=== PATIENT | male | born 1970 | race Caucasian/White ===

== ENCOUNTER 2022-04-19 17:04 | Emergency (ER) | payer OTHER, SELFPAY ==
--- NOTE | ~2022-04-19 | XR_ITS ---
EXAMINATION: XR chest 2V Exam Date/Time: 04/19/2022 17:30 CDT HISTORY: cough for 1 week Comparison: None available. RESULT: Lines, tubes, and devices: None. Lungs and pleura: Emphysematous change. Biapical and right lower lung scarring. Left upper lung gran uloma. Cardiomediastinal silhouette: Aortic ectasia, otherwise normal cardiomediastinal silhouette. Other: No acute osseous or upper abdominal finding. IMPRESSION: No acute cardiopulmonary process. Reviewed, dictated and finalized at location K.
[2022-04-19 17:24] VITALS: BP 127/78; PULSE 105; RESP 18; TEMP 36.7; O2SAT 96
--- NOTE | 2022-04-19 17:25 | ED.URI ---
HPI - URI/Sore Throat General Chief Complaint: Upper Respiratory Infection Stated Complaint: cough,sob,chest pain,nasal drainage Time Seen by Provider: 04/19/22 17:25 Source: patient Mode of arrival: ambulatory Limitations: no limitations History of Present Illness HPI Narrative: 51-year-old male presents with complaint of nasal congestion, runny nose, postnasal drainage, cough and chest congestion for 6 days. Taking qkfb-[id number]-mnbnogn medications without relief. Denies shortness of breath and chest pain. States he just cannot get any sleep from the cough and the chest congestion. Did feel feverish but never checked his temp. Is a current every day smoker. All systems reviewed and negative except as noted. Related Data Allergies Allergy/AdvReac Type Severity Reaction Status Date / Time codeine AdvReac Mild light Verified 04/19/22 17:31 headed, dizzy, sweating Review of Systems Review of Systems: CONSTITUTIONAL: Denies fever, chills, or sweats. EYES: Denies visual changes, redness, or discharge. ENT: Reports rhinorrhea, congestion, sore throat. Denies otalgia. CARDIOVASCULAR: Denies chest pain, palpitations, or edema. RESPIRATORY: Reports cough, chest congestion. Denies dyspnea. GASTROINTESTINAL: Denies abdominal pain, nausea, vomiting, or diarrhea. GENITOURINARY: Denies dysuria or hematuria. SKIN: Denies rash or itching. MUSCULOSKELETAL: Denies back pain, joint pain, or myalgia. NEUROLOGIC: Denies headache, numbness, or weakness. PSYCHIATRIC: Denies anxiety or depression. All other systems reviewed are negative, except as documented in HPI. PMFSH Comments At time of signature, agree with nursing past medical, surgical, social and family history. There is no relevant family history pertinent to the presenting complaint. Exam Narrative: GENERAL: This is a well-nourished, well-developed patient, in no apparent distress. HEAD: normocephalic, atraumatic. EYES: PERRL. Sclera clear/white. Vision is grossly intact. EARS: External ears normal, auditory canals clear and without drainage, TMs normal without perforation. Hearing grossly intact. NOSE: External nose normal with clear nasal drainage. THROAT: Mucous membranes moist, posterior pharynx clear. NECK: Neck supple, non-tender without lymphadenopathy, masses or thyromegaly. CARDIOVASCULAR: Regular rate and rhythm without murmurs, gallops, or rubs. RESPIRATORY: Decreased lung sounds throughout all lung buchanan. SKIN: warm, Dry, intact with no suspicious lesions or rash, good texture and turgor. NEURO: awake, alert, and oriented to person, place and time. There were no obvious focal neurologic abnormalities. EXTREMITIES: Normal range of motion to all extremities. BACK: Nontender without deformity. No CVA tenderness. Course Course Level of Care: Express Care Visit Vital Signs Vital signs: Vital Signs Temperature 36.7 C 04/19/22 17:24 Pulse Rate 105 H 04/19/22 17:24 Respiratory Rate 18 04/19/22 17:24 Blood Pressure 127/78 04/19/22 17:24 Pulse Oximetry 96 04/19/22 17:24 Oxygen Delivery Room Air 04/19/22 17:24 Temperature 36.7 C 04/19/22 17:24 Pulse Rate 105 H 04/19/22 17:24 Respiratory Rate 18 04/19/22 17:24 Blood Pressure 127/78 04/19/22 17:24 Pulse Oximetry 96 04/19/22 17:24 Oxygen Delivery Room Air 04/19/22 17:24 Reviewed MDM - URI/Sore Throat MDM Narrative Medical decision making narrative: Patient is aware of diagnosis, understands and agrees to treatment plan. Anticipatory guidance given. Patient agrees to follow-up as directed and is aware of reasons to seek care at the emergency department. Portions of this record may have been created with voice recognition software Imaging Data My impression: Agree with radiologist Radiologist's impression: EXAMINATION:? XR chest 2V Exam Date/Time:? 04/19/2022 17:30 CDT HISTORY: cough for 1 week ? Comparison:? None available. RESULT: Lines, tubes,
== END 2022-04-19 17:59 | disposition home or self-care (01) ==
PROVIDERS: Emergency Provider Nurse Practitioner Family
DX: J01.90 Acute sinusitis, unspecified (principal); J44.9 Chronic obstructive pulmonary disease, unspecified; R05.9 Cough, unspecified
CPT/HCPCS: 71046; 99213; G0463

== ENCOUNTER 2025-01-01 08:36 | Inpatient (IN) | payer OTHER, SELFPAY ==
[2025-01-01] VITALS (17 sets, daily range): BP systolic 123–177; BP diastolic 72–122; PULSE 92–118; RESP 18–37; TEMP 36.4–36.7; O2SAT 92–100; BMI 28.3
--- NOTE | ~2025-01-01 | CT_ITS ---
EXAMINATION: CTA chest PE protocol DATE: 01/01/2025 19:30 CROSSING SUPERVISOR INDICATION: Pulmonary embolus suspected clinically TECHNIQUE: Computed tomographic angiography (CTA) of the chest was performed with 100 mL Omnipaque-35 0 intravenous contrast. The dose-length product was 540.37 mGy-cm. Maximum intensity projection 3D-re constructions of the aorta and other arteries were constructed by the technologist on a separate work station. COMPARISON: None. Reference is made to plain radiograph of the chest, performed 8 hours earlier. FINDINGS: No filling defect is identified within the main or proximal pulmonary arteries. The thoracic aorta is nonaneurysmal and no dissection is present Panlobular emphysematous disease is identified with scarring in the right upper and lower lobes. The stomach is distended with retained gastric contents. Air opacified bowel within the soft tissues of the anterior abdominal wall, incompletely evaluated on the current study. IMPRESSION: No pulmonary embolus. No aortic dissection. Gastric distention and gastric contents. Air opacified bowel within the soft tissues of the anterior abdominal wall, incompletely evaluated on the current study. Reviewed, dictated and finalized at location A. SING SUPERVISOR IMPRESSION: No pulmonary embolus. No aortic dissection. Gastric distention and gastric contents. Air opacified bowel within the soft tissues of the anterior abdominal wall, inc ompletely evaluated on the current study.
--- NOTE | ~2025-01-01 | XR_ITS ---
EXAMINATION: XR chest 1V portable DATE: 01/05/2025 10:37 INDICATION: Tachycardia. TECHNIQUE: A single frontal view of the chest was obtained. COMPARISON: Chest single view 01/01/2025, chest CT 01/01/25 FINDINGS: There are lucencies in the lungs, consistent with emphysema. There is mild peripheral round ed atelectasis in right middle lobe lung zones. A calcified left lung nodule is consistent with old g ranulomatous disease. No pleural effusion or pneumothorax. The heart size is normal. IMPRESSION: 1. Severe emphysema. Reviewed, dictated and finalized at location A. S INSTRUMENT REPAIR TECHNICIAN IMPRESSION: 1. Severe emphysema.
--- NOTE | ~2025-01-01 | XR_ITS ---
EXAMINATION: XR chest 1V portable DATE: 01/01/2025 09:27 INDICATION: Dyspnea. Edema. TECHNIQUE: A single frontal view of the chest was obtained on 2 radiographs. COMPARISON: Chest 2 views 04/19/2022 FINDINGS: The lungs are hyperexpanded, consistent with emphysema. A calcified left lung nodule is con sistent with old granulomatous disease. There is mild scarring in right mid and lower lung zones. No pleural effusion or pneumothorax. The heart size is normal. IMPRESSION: 1. Mild scarring in right mid and lower lung zones. 2. Emphysema. Reviewed, dictated and finalized at location A. DENTIAL SERVICE TECHNICIAN
--- NOTE | 2025-01-01 08:40 | ECG_ITS ---
Test Date: 2025-01-01 08:46:39 Measurements Intervals Brandon Rate: 116 P: 72 SD: 158 QRS: -83 QRSD: 105 T: 71 QT: 315 QTc: 439 Interpretive Statements SINUS TACHYCARDIA WITH OCCASIONAL VENTRICULAR PREMATURE COMPLEXES INCOMPLETE RIGHT BUNDLE BRANCH BLOCK LEFT ANTERIOR FASCICULAR BLOCK BASELINE ARTIFACT- I, II, III, AVR, AVL, AVF, V1-V2, V4-V6 ABNORMAL ECG No previous ECG available for comparison Electronically Signed On 01-01-2025 08:49:16 INSOLE TOE SNIPPING MACHINE OPERATOR by Dwain Pelayo D.O.
--- OUTSIDE RECORDS SUMMARY | 2025-01-01 08:48 | XMS_ITS | Data Portability ---
Author Organization [place] - [facility] [employer], Main Office Address [address] [place] [address] Care Team Providers Care Floor Cashier Name Role Phone JASON STEWARD Primary Care Provider Assessment Encounter Date Assessment Date Assessment LastModified by Organization Details LastModified Time 01/01/2025 01/01/2025 D/w pt about his findings and further plan of care. Advised to call ambulance; but pt declined. Pt wants to drive by himself to [facility]. Risks explained. I called [facility] and d/w ED MD about pt's symptoms and concerns. Ok to send pt to ED. F/u as per ED MD's recommendatio ns. [email or web address] Not available 01/01/2025 09:37:52 Plan of Treatment Reminders Order Date Submit Date Provider Last Modified By Organization Details Last Modified Time Details Appointments Sick/A cute 025 08:15AM Jason Steward MD Not available Not available Not available Lab None record ed. Referral None record ed. Procedures None record ed. Surgeries None record ed. Imaging None record ed. Medication Orders None record ed. Patient TargetsNo targets recorded. Patient InstructionsNo instructions recorded. Reason for Referral None Reported. Problems Name Problem SNOMED Code Status Onset Date Resolution Date Notes Provider Name and Address Organization Details Recorded Time Tobacco user 230197982 Active Not Available [facility] 3 09:18:17 Ankle joint pain 588957774 Active Not Available [facility] 3 09:18:17 Knee pain Active Not Available [facility] 3 09:18:17 Bronchitis 91077836 Active Not Available [facility] 3 09:18:17 Sinusitis 35770972 Active Not Available [facility] 3 09:18:17 Anxiety 20694252 Active Not Available [facility] 3 09:18:17 Cough 81983211 Active Not Available [facility] 3 09:18:18 Upper respiratory infection 06450607 Active Not Available [facility] 3 09:18:18 Dyspnea on exertion 78389923 Active Not Available [facility] 3 09:18:18 Influenza 6101194 Active Not Available [facility] 3 09:18:18 Stress 93990876 Active Not Available [facility] 3 09:18:18 Posterior rhinorrhea 76960621 Active Not Available [facility] 3 09:18:18 Smoker 13621191 Active Not Available [facility] 3 09:18:18 Gout 19078935 Active Not Available [facility] 3 09:18:18 Tachypnea 140119656 Active 2024 Jason Steward MD [address], [place], [address] , [facility] [employer] [facility] 5 09:33:23 Hypoxia 195948356 Active 2024 Jason Steward MD [address], [address], [address] , [facility] [employer] [facility] 5 09:33:37 Acute exacerbation of chronic obstructive pulmonary disease 316390038 Active 2024 Jason Steward MD [address], [place], [address] , [facility] 5 09:33:49 Fatigue 47366007 Active 2024 Jason Steward MD [address], [place], [address] , [facility] [employer] [facility] 5 09:33:57 Cigarette smoker 65217857 Active 2024 Jason Steward MD [address], [place], [address] , [facility] [employer] [facility] 5 09:34:03 Overweight 424723330 Active 2024 Jason Steward MD [address] [facility] [address], [place], [address] , [facility] [employer] [facility] 5 09:36:14 Problem Notes None recorded. Medical Equipment None Reported. Allergies No known drug allergies Medications Name Sig Start Date Stop Date Status Note LastModified by Organization Details LastModified Time amoxicillin 500 mg capsule TK 1 C PO QID FOR 7 DAYS active Not Available Not Available No t Available nicotine 14 mg/24 hr daily transdermal patch Apply 1 patch every day by transderm al route as directed for 30 days. active Not Available Not Available No t Available ipratropium 0.5 mg-albutero l 3 mg (2.5 mg base)/3 mL nebulizatio n soln 03/[address] [facility]#: [id number] [phone]- [id number] Not Available Not Available Not Available azithromyci n 250 mg tablet TK 2 TS PO AT ONCE TODAY THEN TK 1 T PO ONCE D FOR 4 DAYS 02/25 completed Not Available Not Available Not Available benzonatate 200 mg capsule TAKE 1 CAPSULE BY MOUTH THREE TIMES DAILY NEEDED FOR COUGH 01/01 completed Not Available Not Available Not Available Celestone Soluspan 6 mg/mL suspension for injection active [facility]#: [id number] 9566- 05 Not Available Not Available Not Available Medrol (Neftali) 4 mg tablets in a dose pack Take as directed on pack. Direction s for Medrol Dosepak: 1st day: 2 tablets before breakfast , 1 tablet after lunch and after supper, and 2 tablets at bedtime. 2nd day: 1 tablet before breakfast . 1 tablet after lunch and after supper, and 2 tablets at bedtime. 3rd day: 1 tablet before breakfast , after lunch, after supper and at bedtime. 4th day: 1 tablet before breakfast , after lunch and at bedtime. 5th day: 1 tablet before breakfast and at bedtime. 6th day: 1 tablet before breakfast 01/01 completed Not Available Not Available Not Available prednisone 20 mg tablet TAKE 2 TABLETS BY MOUTH DAILY FOR 5 DAYS 01/01 completed Not Available Not Available Not Available amoxicillin 875 mg tablet TAKE 1 TABLET BY MOUTH EVERY 12 HOURS FOR 10 DAYS 01/01 completed Not Available Not Available Not Available Xanax 0.25 mg tablet Take 1 tablet 3 times a day by oral route as directed for 30 days. 05/19 completed Not Available Not Available Not Available oseltamivir 75 mg capsule Take 1 capsule every day by oral route as directed for 10 days. 12/28 completed Not Available Not Available Not Available ceftriaxone 500 mg solution for injection active [facility]#: [id number] 9858- 01 Not Available Not Available Not Available ibuprofen 600 mg tablet Take 1 tablet 3 times a day by oral route for 30 days. 01/01 completed Not Available Not Available Not Available levofloxaci n 750 mg tablet TK 1 T PO D 03/03 completed Not Available Not Available Not Available albuterol sulfate HFA 90 mcg/actuati on aerosol inhaler INHALE 2 PUFFS BY MOUTH EVERY 4 TO 6 HOURS FOR 10 DAYS NEEDED active Not Available Not Available No t Available fluticasone propionate 50 mcg/actuati on nasal spray,suspe nsion Inhale 2 sprays every day by intranasa l route in the morning for 30 days. active Not Available Not Available No t Available loratadine 10 mg tablet TAKE 1 TABLET BY MOUTH EVERY DAY 01/01 completed Not Available Not Available Not Available amoxicillin 875 mg-potassiu m clavulanate 125 mg tablet TAKE 1 TABLET BY MOUTH EVERY 12 HOURS WITH MEALS FOR 10 DAYS 01/01 completed Not Available Not Available Not Available escitalopra m 10 mg tablet TK 1 T PO D HS FOR 30 DAYS. active Not Available Not Available No t Available Mucinex DM 30 mg-600 mg tablet,exte nded release 12 hr Take 1 tablet every 12 hours by oral route as directed for 15 days. active Not Available Not Available No t Available varenicline tartrate 0.5 mg tablet Take 1 tablet twice a day by oral route as directed for 30 days. 01/01 completed Not Available Not Available Not Available Chantix Continuing Month Box 1 mg tablet Take 1 tablet twice a day by oral route. 01/01 completed Not Available Not Available Not Available Chantix Starting Month Box 0.5 mg (11)-1 mg (42) tablets in dose pack Take by oral route. 0.5 mg PO qd x3 days, then 0.5 mg PO bid x4 days; Info: give w/ food; start drug 1wk before quit date if quit date planned 01/01 completed Not Available Not Available Not Available Vicodin ES 7.5 mg-300 mg tablet TK 1 T PO Q 4 H PRN P. active Not Available Not Available No t Available Compact Space Chamber USE WITH INHALER DIRECTED 01/01 completed Not Available Not Available Not Available Vitals Date Recorded Body mass index (BMI) Body height Oxygen saturation Oxygen saturation in Arterial blood by Pulse oximetry Heart rate Body temperature Body weight Systolic blood pressure Diastolic blood pressure Provider Name and Address Organization Details Last Updated DateTime 3 27.5 kg/m2 190.5 cm 95 % 95 % 95 /min 98.1 [degF] 96639.3 2 g 128 mm[Hg] 84 mm[Hg] Not Available [facility] 3 09:13:38 Date Recorded Body height Body mass index (BMI) Body weight Body temperature Oxygen saturation Oxygen saturation in Arterial blood by Pulse oximetry Heart rate Systolic blood pressure Diastolic blood pressure Provider Name and Address Organization Details Last Updated DateTime 5 190.5 cm 28.3 kg/m2 529963. 98 g 97.4 [degF] 85 % 85 % 116 /min 150 mm[Hg] 110 mm[Hg] Priti Perez RN [place] [employer] 5 09:13:08 Social History Question Answer Notes LastModified by Organizat ion Details LastModified Time Tobacco Smoking Status Current Every Day Smoker Not Available [facility] 01/26/2023 09:12:54 Do You Have An Advance Directive? No [id number] Information not available 01/26/2023 What Is Your Level Of Alcohol Consumption? Occasional [id number] Information not available 01/26/2023 In The 14 Days Before Symptom Onset, Have You Had Close Contact With A Laboratory-confir med COVID-19 While That Case Was Ill? No [id number] Information not available 01/26/2023 In The 14 Days Before Symptom Onset, Have You Had Close Contact With A Person Who Is Under Investigation For COVID-19 While That Person Was Ill? No [id number] Information not available 01/26/2023 What Type Of Diet Are You Following? REGULAR [id number] Information not available 01/26/2023 What Is The Highest Grade Or Level Of School You Have Completed Or The Highest Degree You Have Received? 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 No [id number] Information not available 01/26/2023 What Is Your Relationship Status? Single [id number] Information not available 01/26/2023 How Much Tobacco Do You Smoke? 0.5 PPD [id number] Information not available 01/26/2023 Have You Recently Traveled Abroad? No [id number] Information not available 01/26/2023 Are You Currently In School? No [id number] Information not available 01/26/2023 Sex: Unknown Functional Status Question Answer Note LastModified by Organizat ion Details LastModified Time What is your exercise level? Moderate [id number] Information not available 01/26/2023 Mental Status None recorded. Family History Relationship Description Onset Age of this Age Resolved Age Notes LastModified by Organization Details LastModified Time Father No current problems or disability [id number] Not available 01/26/2023 09:13:20 Mother No current problems or disability [id number] Not available 01/26/2023 09:13:20 Medical History No medical history recorded. Past Encounters Encounter ID Performer Location Encounter Start Date Encounter Closed Date Diagnosis/Indication Diagnosis SNOMED-CT Code Diagnosis ICD10 Code Diagnosis Note [id number] [address] [address] 11/11/2022 00:00:00 11/11/2022 16:45:58 [id number] Jason Steward MD [address] [address] 01/01/2025 09:01:18 01/01/2025 09:17:09 Dyspnea on exertion 60191322 R06.09 Tachypnea 240245243 R06. 82 Hypoxia 273622276 R09.02 Acute exac erbation of chronic obstructive pulmonary disease 901874191 J44.1 Fatigue 08807844 R53.83 Cigarette smoker 5643934 7 F17.210 Overweight 241571978 E66 .3 Health Concerns Section Related Observation LastModified by Organization Detai ls LastModified Time None Recorded Concern Status LastModified by Organization Details LastModified Time None Recorded Advance Directives Directive N: Payers Encounter Date Sequence Insurance Name Policy Number Policy Nunes Covered Member ID Nunes Member ID Guarantor Name 01/01/2025 1 [facility] [id number] Omar Hines [id number] Omar Hines Notes Date Note Type Note Provider Name and Address Organization Details Recorded Time 01/01/2025 text/html ACV: C/o cough, congestion, SOB, fatigue for last 7-8 days. Pt denies any known sick contacts. Since yesterday night, his SOB is getting more worse. He walks few steps and gets winded. Denies any chest pain, but lot of burning sensation in his chest ++. Smoking ++. Last visit in 11/18. Jason Steward MD [address] [place] [address], [place], [address], [facility] 01/01/2025 09:38:00
--- OUTSIDE RECORDS SUMMARY | 2025-01-01 08:48 | XMS_ITS | Continuity of Care Document ---
Author Organization [place] [facility] Address [address] [place] [address] Care Team Providers Care Fitting Room Inspector Name Role Phone JASON STEWARD Primary Care Provider [phone] Assessment Encounter Date Assessment Date Assessment LastModified by Organization Details LastModified Time 01/01/2025 01/01/2025 D/w pt about his findings and further plan of care. Advised to call ambulance; but pt declined. Pt wants to drive by himself to [facility] ED. Risks explained. I called [place]'s ED and d/w ED MD about pt's symptoms and concerns. Ok to send pt to ED. F/u as per ED MD's recommendatio ns. [email or web address] Not available 01/01/2025 09:37:52 Plan of Treatment [...] Address Organization Details Recorded Time Tobacco user [id number] Active Not Available [facility] 3 09:18:17 Ankle joint pain 990725142 Active Not Available [facility] 3 09:18:17 Knee pain Active Not Available [facility] 3 09:18:17 Bronchitis 47314867 Active Not Available [facility] 3 09:18:17 Sinusitis 95831759 Active Not Available [facility] 3 09:18:17 Anxiety 00033322 Active Not Available [facility] 3 09:18:17 Cough 53520539 Active Not Available [facility] 3 09:18:18 Upper respiratory infection 98537688 Active Not Available [facility] 3 09:18:18 Dyspnea on exertion 88496527 Active Not Available [facility] 3 09:18:18 Influenza 9123681 Active Not Available [facility] 3 09:18:18 Stress 75843174 Active Not Available [facility] 3 09:18:18 Posterior rhinorrhea 14294253 Active Not Available [facility] 3 09:18:18 Smoker 21292343 Active Not Available [facility] 3 09:18:18 Gout 09237328 Active Not Available [facility] 3 09:18:18 Tachypnea 250115774 Active 2024 Jason Steward MD [address], [place], [address] , [facility] 5 09:33:23 Hypoxia 632053915 Active 2024 Jason Steward MD [address], [place], [address] , [facility] 5 09:33:37 Acute exacerbation of chronic obstructive pulmonary disease 553501221 Active 2024 Jason Steward MD [address], [place], [address] , [facility] 5 09:33:49 Fatigue 88302657 Active 2024 Jason Steward MD [address], [place], [address] , [facility] 5 09:33:57 Cigarette smoker 82841447 Active 2024 Jason Steward MD [address] [facility] [address], [place], [address] , [facility] 5 09:34:03 Overweight 992364051 Active 2024 Jason Steward MD [address], [place], [address] , [facility] 5 09:36:14 Problem Notes None recorded. Medical [...] base)/3 mL nebulizatio n soln 03/03 completed [facility]#: [id number] Not Available Not Available [...] Soluspan 6 mg/mL suspension for injection active [facility]#: [id number] 05 Not Available Not Available [...] ceftriaxone 500 mg solution for injection active [facility]#: [id number]- 01 Not Available Not Available [...] Available Not Available Vitals Date Recorded Body height Body mass index (BMI) Body weight Body temperature Oxygen saturation Oxygen saturation in Arterial blood by Pulse oximetry Heart rate Systolic blood pressure Diastolic blood pressure Provider Name and Address Organization Details Last Updated DateTime 5 190.5 cm 28.3 kg/m2 881546. 98 g 97.4 [degF] 85 % 85 % 116 /min 150 mm[Hg] 110 mm[Hg] Priti Perez RN [place] - [facility] 5 09:13:08 Social History Question Answer Notes LastModified by Organizat ion Details LastModified Time Tobacco Smoking Status Current Every Day Smoker Not Available [facility] 01/26/2023 09:12:54 Do You Have An Advance Directive? No [id number] Information not available 01/26/2023 What Is Your Level Of Alcohol Consumption? Occasional [id number] Information not available 01/26/2023 In The 14 Days Before Symptom Onset, Have You Had Close Contact With A Laboratory-confir med COVID-19 While That Case Was Ill? No [id number] Information not available 01/26/2023 In The 14 Days Before Symptom Onset, Have You Had Close Contact With A Person Who Is Under Investigation For COVID-19 While That Person Was Ill? No [id number] Information not available 01/26/2023 What Type Of Diet Are You Following? REGULAR [id number] Information not available 01/26/2023 What Is The Highest Grade Or Level Of School You Have Completed Or The Highest Degree You Have Received? 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 No [id number] Information not available 01/26/2023 What Is Your Relationship Status? Single [id number] Information not available 01/26/2023 How Much Tobacco Do You Smoke? 0.5 PPD [id number] Information not available 01/26/2023 Have You Recently Traveled Abroad? No [id number] Information not available 01/26/2023 Are You Currently In School? No [id number] Information not available 01/26/2023 Sex: Unknown Functional Status Question Answer Note LastModified by Organizat ion Details LastModified Time What is your exercise level? Moderate [id number] Information not available 01/26/2023 Mental Status None recorded. Family History Relationship Description Onset Age of this Age Resolved Age Notes LastModified by Organization Details LastModified Time Father No current problems or disability [id number] Not available 01/26/2023 09:13:20 Mother No current problems or disability [id number] Not available 01/26/2023 09:13:20 Medical History No medical history recorded. Past Encounters Encounter ID Performer Location Encounter Start Date Encounter Closed Date Diagnosis/Indication Diagnosis SNOMED-CT Code Diagnosis ICD10 Code Diagnosis Note [id number] Jason Steward MD [facility] [address] [address] 01/01/2025 09:01:18 01/01/2025 09:17:09 Dyspnea on exertion 72558701 R06.09 Tachypnea 717955175 R06. 82 Hypoxia 385198133 R09.02 Acute exac erbation of chronic obstructive pulmonary disease 425925819 J44.1 Fatigue 62777700 R53.83 Cigarette smoker 5352500 7 F17.210 Overweight 517721567 E66 .3 Health Concerns Section Related Observation LastModified by Organization Detai ls LastModified Time None Recorded Concern Status LastModified by Organization Details LastModified Time None Recorded Payers Encounter Date Sequence Insurance Name Policy Number Policy Nunes Covered Member ID Nunes Member ID Guarantor Name 01/01/2025 1 [facility] [id number] Omar Hines [id number] Omar Hines Notes Date Note Type Note [...] Last visit in 11/18. Jason Steward MD [address] [place] [address], [place], [address], [facility] [place] 01/01/2025 09:38:00
[2025-01-01 08:53] LABS: Alveolar/Arterial O2 Gradient 72.5 mmHg; Base Excess ABG 0.5 mEq/l (+/-2.0); Fractional Inspired Oxygen 28 %; HCO3 ABG 27.7 mEq/l (22.0-26.0); Oxygen Content ABG 18.9 %vol (16.0-22.0); Oxygen Saturation ABG 90.3 % (95.0-100.0); PCO2 ABG 54.2 mmHg (35.0-45.0); PO2 ABG 63.2 mmHg (80.0-100.0); PO2 FiO2 Ratio Arterial Blood 2.26 %; Total Hemoglobin 15.6 g/dL (12.0-18.0); pH ABG 7.326 (7.350-7.450)
[2025-01-01] MEDS: IPRATROPIUM 0.5 MG/ALBUTEROL SULFATE 2.5 MG AMPUL.NEB 3 ML INHALATION ×2 (08:55→13:03)
[2025-01-01 08:56] LABS: Device NASAL CANNULA; Modified Allen's Test Pass; Oxyhemoglobin 86.1 % THb (90.0-100.0); Site Drawn RIGHT RADIAL
[2025-01-01 08:59] LABS: Basophils Percent Auto 0.4 % (0.2-1.2); Eosinophils Percent Auto 0.4 % (0-4.4); Hematocrit 48.1 % (42.0-52.0); Hemoglobin 15.4 g/dL (14.0-18.0); Immature Granulocyte Absolute 0.02 K/mm3 (0.00-0.031); Immature Granulocyte Percent A 0.2 % (0-0.5); Lymphocytes Absolute Auto 0.86 K/mm3 (0.9-3.2); Lymphocytes Percent Auto 8.9 % (18.3-44.2); Mean Corpuscular Hemoglobin 29.3 pg (26-34); Mean Corpuscular Volume 91.6 fl (80-100); Mean Platelet Volume 9.7 fl (7.4-10.4); Monocytes Absolute Auto 1.2 K/mm3 (0.1-0.6); Monocytes Percent Auto 12.6 % (2.6-8.5); Neutrophils Absolute Auto 7.5 K/mm3 (1.3-6.7); Neutrophils Percent Auto 77.5 % (45.5-73.1); Platelet Count Result 269 k/mm3 (150-375); Red Blood Count 5.25 M/mm3 (4.6-6.20); Red Cell Distribution Width 14.5 % (11.5-14.5); White Blood Count 9.6 K/mm3 (4.5-10.0)
[2025-01-01] MEDS: IPRATROPIUM 0.5 MG/ALBUTEROL SULFATE 2.5 MG AMPUL.NEB 3 ML (09:03)
[2025-01-01 09:21] LABS: Prothrombin Time 13.7 Seconds (11.1-14.7)
[2025-01-01 09:30] LABS: Alanine Aminotransferase 32 U/L (6-50); Albumin Level 4.1 g/dL (3.5-5.1); Alkaline Phosphatase 82 U/L (38-126); Anion Gap 8 mmol/L (4-12); Aspartate Amino Transferase 29 U/L (17-59); Bilirubin,Total 0.6 mg/dL (0.2-1.3); Blood Urea Nitrogen 12 mg/dL (9-20); Calcium 9.5 mg/dL (8.4-10.2); Carbon Dioxide 33 mmol/L (22-30); Chloride 91 mmol/L (98-107); Estimated CRCL calculation 139 ml/min; Estimated Glomerular Filt Rate > 60; Glucose 131 mg/dL (65-110); Magnesium 1.8 mg/dL (1.6-2.3); Potassium 5.1 mmol/L (3.4-5.0); Sodium 132 mmol/L (137-145)
[2025-01-01 09:34] LABS: Influenza A QL RT-PCR Negative (Negative); Influenza B QL RT-PCR Negative (Negative); RSV RNA, RT-PCR Negative (Negative); SARS-CoV-2 RNA PCR Negative (Negative)
[2025-01-01 09:39] LABS: NT Pro B Type Natriuretic Pept 3550 pg/mL (19.9-100); Troponin I 0.023 ng/mL (0.000-0.034)
--- NOTE | 2025-01-01 10:49 | ED_ITS ---
HPI - SOB/Dyspnea General Chief Complaint: Shortness of Breath/Dyspnea Stated Complaint: shortness of breath Time Seen by Provider: 01/01/25 08:41 Source: patient Mode of arrival: ambulatory Limitations: no limitations History of Present Illness HPI Narrative: 54-year-old with a history of COPD presents to the ER with the complaints of cough congestion, shortness of breath. Patient was seen earlier at his doctor's office was found to have SpO2 of 88%. Patient states cough is nonproductive. He denies any fever or chills or chest pain MD elicited complaint: shortness of breath and cough Pertinent past history: COPD Onset (ago): day(s) (2) Timing: constant Severity: moderate Exacerbating factors: nothing Relieving factors: oxygen and bronchodilators Known history of: COPD Associated symptoms: denies other symptoms Related Data Allergies Allergy/AdvReac Type Severity Reaction Status Date / Time codeine AdvReac Mild light Verified 01/01/25 08:52 headed, dizzy, sweating Review of Systems 2 Review of Systems: All systems reviewed & are unremarkable except as noted in HPI and below Constitutional: Constitutional: Reports no additional constitutional complaints Eyes: Eyes: Reports no additional eye complaints ENT: Reports system reviewed and no additional complaints, except as documented Cardiovascular: Cardiovascular: Reports no additional cardiovascular complaints Respiratory: Respiratory: Reports as per HPI Gastrointestinal: Gastrointestinal: Reports no additional gastrointestinal complaints Musculoskeletal: Musculoskeletal: Reports no additional musculoskeletal complaints Exam 2 Narrative: GENERAL: Well-appearing, well-nourished, and in no acute distress. HEAD: Normocephalic, atraumatic. EYES: PERRLA and EOMI. ENT: Nares clear, no rhinorrhea or epistaxis. Mucous membranes moist. NECK: Supple. CHEST: poor air entry , no obvious wheeze, No respiratory distress. HEART: Regular rate and rhythm. No murmur heard. Normal peripheral pulses. ABDOMEN: Soft, nontender, nondistended, normal active bowel sounds. EXTREMITIES: Normal range of motion. No edema. SKIN: Warm, dry, no rash. NEURO: No focal deficits. Alert and oriented x3. PSYCH: Normal mood and affect. Course Course Emergency Course: Patient feeling better after the neb treatment informed him about his lab work, chest x-ray findings agreeable with admission. Discussed with Dr. Cordova accepted the patient Vital Signs Vital signs: Vital Signs Temperature 36.4 C 01/01/25 08:53 Pulse Rate 117 H 01/01/25 08:53 Respiratory Rate 26 H 01/01/25 08:53 Blood Pressure 151/113 H 01/01/25 08:53 Pulse Oximetry 100 01/01/25 08:53 Oxygen Delivery Nasal Cannula 01/01/25 08:53 Oxygen Flow Rate 2 01/01/25 08:53 Temperature 36.4 C 01/01/25 08:53 Pulse Rate 115 H 01/01/25 10:13 Respiratory Rate 20 01/01/25 10:13 Blood Pressure 158/122 H 01/01/25 10:13 Pulse Oximetry 99 01/01/25 10:13 Oxygen Delivery Nasal Cannula 01/01/25 09:11 Oxygen Flow Rate 3 01/01/25 09:11 MDM - SOB/Dyspnea Differential Diagnosis Differential diagnosis: Likely acute exacerbation of chronic obstructive airways disease, congestive heart failure and community acquired pneumonia Medical Records Attestation: I reviewed the patient's medical records. Lab Data Attestation: I reviewed the patient's lab results. 01/01/25 08:49 01/01/25 08:49 Labs: Lab Results 01/01/25 01/01/25 Range/Units 08:49 08:52 WBC 9.6 (4.5-10.0) K/mm3 RBC 5.25 (4.6-6.20) M/mm3 Hgb 15.4 (14.0-18.0) g/dL Hct 48.1 (42.0-52.0) % MCV 91.6 (80-100) fl MCH 29.3 (26-34) pg MCHC 32.0 (32-36) g/dl RDW 14.5 (11.5-14.5) % Plt Count 269 (150-375) k/mm3 MPV 9.7 (7.4-10.4) fl Immature Gran % (Auto) 0.2 (0-0.5) % Neut % (Auto) 77.5 H (45.5-73.1) % Lymph % (Auto) 8.9 L (18.3-44.2) % [place] % (Auto) 12.6 H (2.6-8.5) % Eos % (Auto) 0.4 (0-4.4) % Baso % (Auto) 0.4 (0.2-1.2) % Lymph # (Auto) 0.86 L (0.9-3.2) K/mm3 [place] # (Auto) 1.2 H (0.1-0.6) K/mm3 Eos # (Auto) 0.0 (0-0.3) K/mm3 Baso # (Auto) 0.0 (0.0-0.1) K/mm3 Abs Immat Gran (auto) 0.02 (0.00-0.031) K/mm3 Absolute Neuts (auto) 7.5 H (1.3-6.7) K/mm3 Absolute Nucleated RBC 0.000 (0.0-0.012) K/mm3 Nucleated RBC % 0.0 (0.0-0.2) % PT 13.7 (11.1-14.7) Seconds INR 1.0 APTT 26.0 (22.3-36.8) Seconds Sodium 132 L (137-145) mmol/L Potassium 5.1 H (3.4-5.0) mmol/L Chloride 91 L (98-107) mmol/L Carbon Dioxide 33 H (22-30) mmol/L Anion Gap 8 (4-12) mmol/L BUN 12 (9-20) mg/dL Creatinine 0.61 L (0.7-1.3) mg/dL Estim Creat Clear Calc 139 ml/min Estimated GFR > 60 (59 - ) Glucose 131 H (65-110) mg/dL Lactic Acid 2.0 (0.7-2.0) mmol/L Calcium 9.5 (8.4-10.2) mg/dL Magnesium 1.8 (1.6-2.3) mg/dL Total Bilirubin 0.6 (0.2-1.3) mg/dL AST 29 (17-59) U/L ALT 32 (6-50) U/L Alkaline Phosphatase 82 (38-126) U/L Troponin I 0.023 (0.000-0.034) ng/mL NT-Pro-B Natriuret Pep 3550 H (19.9-100) pg/mL Total Protein 7.0 (6.3-8.2) g/dL Albumin 4.1 (3.5-5.1) g/dL Influenza A (RT-PCR) Negative (Negative) Influenza B (RT-PCR) Negative (Negative) RSV (RT-PCR) Negative (Negative) SARS-CoV-2 RNA (RT-PCR) Negative (Negative) ABG Data ABG results: 01/01/25 08:40 Puncture Site Right radial ABG pH 7.326 L ABG pCO2 54.2 H ABG pO2 63.2 L ABG PO2/FiO2 Ratio 2.26 ABG HCO3 27.7 H ABG O2 Saturation 90.3 L ABG O2 Content 18.9 ABG Base Excess 0.5 A-a Gradient 72.5 Oxyhemoglobin 86.1 L* Total Hemoglobin 15.6 O2 Delivery Device Nasal cannula O2 Liters/Min 2.0 FiO2 28 Imaging Data Radiologist's impression: ITS Impressions Chest X-Ray 01/01/25 09:36 IMPRESSION: 1. Mild scarring in right mid and lower lung zones. 2. Emphysema. ECG Data EKG #1: ECG completion date: 01/01/25 ECG completion time: 08:46 EKG Interpretation: tachycardia (116), sinus rhythm, no ST changes, normal QT and other (Incomplete right bundle, left anterior fascicular block) Discharge Plan Discharge Clinical Impression: Asthma exacerbation in COPD Congestive heart failure Qualifiers: Heart failure type: unspecified Heart failure chronicity: unspecified Qualified Code(s): I50.9 - Heart failure, unspecified Patient Disposition: Still a Patient Condition: Stable Patient Language: Bhutanese Prescriptions: No Action (DME) Aerochamber Plus Z Stat Spacer See Rx Instructions .Route Qty: 1 0RF Rx Instructions: As directed albuterol sulfate 90 mcg/actuation HFA aerosol inhaler 2 puff inhalation QID PRN (Reason: shortness of breath or wheezing) Qty: 8.5 0RF Mucinex 1,200 mg tablet extended release 12hr 1,200 mg PO BID 7 Days Qty: 14 0RF benzonatate 200 mg capsule 200 mg PO TID PRN (Reason: cough) Qty: 20 0RF prednisone 20 mg tablet 40 mg PO DAILY 5 Days Qty: 10 0RF loratadine [Claritin] 10 mg tablet 10 mg PO DAILY Qty: 30 0RF amoxicillin 875 mg tablet 875 mg PO Q12H 10 Days Qty: 20 0RF Follow-up/Referrals: Bin,MD Jason [Primary Care Provider] - Time of Disposition: 10:57
[2025-01-01] MEDS: FUROSEMIDE INJ 40 MG/4 ML VIAL IV PUSH ×2 (11:26→18:23)
[2025-01-01] MEDS: methylPREDNISolone SOD SUCC 125 MG VIAL IV PUSH (11:26)
--- NOTE | 2025-01-01 11:40 | ADMGEN ---
This patient, Omar Hines Jr., was admitted to Medical Room 261-01. Patient/family oriented to hospital policies and general routines including ID bracelet, bed and alarms, visiting hours, pain management, procedures, bathroom and other care routines, personal items, smoking policy, room service/diet, and visiting hours. Information on how to activate the Rapid Response Team has been discussed. Patient/Family are encouraged to report perceived risks to care and to ask questions if they do not understand what they are told or what they should do.
[2025-01-01] MEDS: methylPREDNISolone SOD SUCC 125 MG VIAL 60 MG IV PUSH (17:23)
--- NOTE | 2025-01-01 18:02 | PM.IMHP ---
H&P: HPI History of Present Illness Date/Time: 01/01/25 18:02 Chief Complaint: SOb and cough Narrative: 54-year-old male no significant past medical history presented to the ER on account of shortness of breath and a cough. Patient reported he has been having sore throat the past 10 days associated with cough however his symptoms improved and then worsened in the past 4 days with shortness of with a cough productive of yellowish sputum. He also noted leg swelling the past 3 days. Denies any chest no fever no vomiting abdominal pain no diarrhea no dysuria no focal symptoms. No lightheadedness or loss of consciousness. Er evaluation notable for temperature 97.6?, heart rate 1 1 7, respiratory 26, saturation 100% on 2 L oxygen, blood pressure 151/113. CXR no acute changes, abg 7.326/54.2/63.2/27.7, Flu, RSV and COvid negative. EKG showed ST, no acute St-T changes Patient given I V steroid prior to admission prior to admission Review of Systems Review of Systems: All other systems were reviewed and negative except as noted in the HPI above [facility] Family History Family History (Updated 01/01/25 @ 12:24 by Claudia Michelle RN) Mother Cervical cancer Father Heart failure Social History Social History Smoking packs per day: 1 Smoking cigarettes per day: 20.0 Years smoked: 30 Smoking pack-years: 30.00 Smoking status: Former smoker Tobacco type: cigarettes Alcohol intake: former Substance use type: does not use Do You Feel Safe in your Home?: Yes Lack of Transportation: No Lack of Food: Never True Current Housing: I Have Housing Concerned About Future Housing: No Difficulty Paying Gas/Electric Bills: No Difficulty Paying for Meds: No Currently Unemployed: No Education: Associate Degree Difficulty w/ Childcare or Family Care: No Spiritual care concerns: No Meds Home Medications and Allergies Home Medications ?Medication ?Instructions ?Recorded ?Confirmed ?Type guaifenesin 1,200 mg tablet, 1,200 mg PO BID 7 days #14 tabs 04/19/22 01/01/25 Rx extended release 12 hr (Mucinex) loratadine 10 mg tablet (Claritin) 10 mg PO DAILY #30 tabs 04/19/22 01/01/25 Rx Allergies Allergy/AdvReac Type Severity Reaction Status Date / Time codeine AdvReac Mild light Verified 01/01/25 08:52 headed, dizzy, sweating Vital Signs Vital Signs - 24 hr 01/01/25 08:53 01/01/25 08:53 01/01/25 08:55 Temperature 97.6 F Pulse Rate 117 H 118 H Respiratory Rate 26 H 20 Blood Pressure 151/113 H Pulse Oximetry 100 100 Oxygen Delivery Nasal Cannula Nasal Cannula Oxygen Flow Rate 2 2 01/01/25 08:58 01/01/25 08:58 01/01/25 09:00 Temperature Pulse Rate 115 H 118 H Respiratory Rate 21 H Blood Pressure 157/118 H Pulse Oximetry 100 100 Oxygen Delivery Nasal Cannula Oxygen Flow Rate 2 01/01/25 09:05 01/01/25 09:11 01/01/25 10:13 Temperature Pulse Rate 113 H 115 H Respiratory Rate 20 20 Blood Pressure 158/122 H Pulse Oximetry 100 99 Oxygen Delivery Nasal Cannula Oxygen Flow Rate 3 01/01/25 10:15 01/01/25 10:45 01/01/25 11:01 Temperature Pulse Rate 112 H 114 H 114 H Respiratory Rate 37 H 32 H 33 H Blood Pressure 163/113 H 158/108 H 177/98 H Pulse Oximetry 97 Oxygen Delivery Oxygen Flow Rate 01/01/25 13:03 01/01/25 13:03 01/01/25 13:13 Temperature Pulse Rate 92 92 96 Respiratory Rate 20 20 20 Blood Pressure Pulse Oximetry 98 Oxygen Delivery Nasal Cannula Oxygen Flow Rate 3 01/01/25 16:00 Temperature Pulse Rate 109 H Respiratory Rate Blood Pressure Pulse Oximetry Oxygen Delivery Oxygen Flow Rate Exam Narrative: General: alert and comfortable Eyes: EOMI, PERRLA ENNT External ears normal, Neck is supple, no masses, Respiratory systems: Clear to auscultation Cardiovascular S1, S2, normal rhythm, no murmur, rub, or gallop; no thrill or palpable murmurs on palpation. Gastrointestinal: soft, non-tender, and non-distended abdomen with no masses; BS present Skin: no rash, lesions, ulcerations, subcutaneous nodules or induration Musculoskeletal: Lower extremities edema 3 + Neurologic: Alert and oriented x3, non focal Mental Status Exam: normal affect H&P: Results Labs Labs: Short CBC 01/01/25 Range/Units 08:49 WBC 9.6 (4.5-10.0) K/mm3 Hgb 15.4 (14.0-18.0) g/dL Hct 48.1 (42.0-52.0) % Plt Count 269 (150-375) k/mm3 BMP 01/01/25 08:49 Sodium 132 L Potassium 5.1 H Chloride 91 L Carbon Dioxide 33 H BUN 12 Creatinine 0.61 L Glucose 131 H Calcium 9.5 Cardiac Enzymes 01/01/25 01/01/25 Range/Units 08:49 14:25 Troponin I 0.023 0.030 D (0.000-0.034) ng/mL Liver Function 01/01/25 Range/Units 08:49 Total Bilirubin 0.6 (0.2-1.3) mg/dL AST 29 (17-59) U/L ALT 32 (6-50) U/L Alkaline Phosphatase 82 (38-126) U/L Albumin 4.1 (3.5-5.1) g/dL Assessment and Plan Assessment and plan (1) Asthma exacerbation in COPD: Code(s): J44.1 - Chronic obstructive pulmonary disease with (acute) exacerbation Status: Acute (2) Congestive heart failure: Qualifiers: Heart failure chronicity: unspecified Heart failure type: unspecified Qualified Code(s): I50.9 - Heart failure, unspecified Code(s): I50.9 - Heart failure, unspecified Status: Acute Plan Acute hypoxemic hypercapnic respiratory failure Patient presented with SOB, smokes half pack per day Abg showed abg 7.326/54.2/63.2/27.7 CXR unremarkable CTA chest ordered Continue PO prednisone, Duoneb and Symbicort Leg edema and SOB rule out CHF NT-proBNP 3550 ECHO pending continue Lasix monitor Likely undiagnosed COPD with exacerbation patient is a smoker and smokes half PPD Continue DUoneb treatment with PO steroids and Symbicort Counseled about smoking cessation DVT prophylaxis on Sq lovenox Full code Surrogate decision maker Sister Madhuri Kinsey Hospitalist MIPS Advance Care Plan I have confirmed that the patient's Advanced Care Plan is present, code status is documented, or surrogate decision maker is listed in patient medical record.: Yes Medication Reconciliation I have utilized all available resources to obtain, update and review the patients current medications (includes all prescriptions, OTC, herbals, cannabis, and nutritional supplements).: Yes
[2025-01-01] MEDS: predniSONE 20 MG TABLET 40 MG PO (18:28)
[2025-01-01 19:01] LABS: Troponin I 0.023 ng/mL (0.000-0.034)
[2025-01-02] VITALS (23 sets, daily range): BP systolic 98–109; BP diastolic 56–80; PULSE 96–117; RESP 18–20; TEMP 36.3–36.6; O2SAT 86–99
--- NOTE | 2025-01-02 | ECHO_ITS ---
Patient Info Name: Omar Hines Age: 54 years : 1970 Gender: Male Ht: 75 in Wt: 226 lbs BSA: 2.34 m2 HR: 111 bpm BP: 106 / 75 mmHg Heart Rhythm: Tachycardia Technical Quality: Good Exam Date: 01/02/2025 2:12 PM Exam Location: Echo Lab Exam Room: [facility] Patient Status: Inpatient Admit Date: 01/01/2025 Staff Ordering Physician: Rufina Graf MD Press Offbearer: Emily Renee RDCS Attending Provider: Kirit Hwang MD Exam Type: CA echo doppler color flow Study Info Indications - CHF Complete two-dimensional, color flow and Doppler transthoracic echocardiogram is performed. Summary 1. Complete two-dimensional, color flow and Doppler transthoracic echocardiogram is performed. 2. The left ventricle is mildly dilated with LVEDD measured 5.9 cm. The left ventricle has moderately reduced systolic function with a visually estimated LVEF of 30-35%. 3. The right ventricle is mildly dilated with mildly reduced systolic function. 4. The aortic root at the level of the sinus of Valsalva measures 3.7 cm in diameter. The ascending aorta is dilated at 4.[address] scan is recommended if clinically indicated. 5. Dilated inferior vena cava with >50% collapse upon inspiration consistent with elevated right atrial pressure, 8 mmHg. Left Ventricle The left ventricle is mildly dilated with LVEDD measured 5.9 cm. The left ventricle has moderately reduced systolic function with a visually estimated LVEF of 30-35%. Right Ventricle The right ventricle is mildly dilated with mildly reduced systolic function. Left Atria The left atrium is normal size. Right Atria The right atrium is dilated. Atrial Septum The atrial septum visually appears intact. Aortic Valve The aortic valve is trileaflet and sclerotic but opens well. There is no aortic regurgitation. Pulmonic Valve The pulmonic valve is grossly normal. There is no color Doppler evidence of pulmonic valve regurgitation. Mitral Valve The mitral valve is normal. There is trace mitral regurgitation. Tricuspid Valve The tricuspid valve is normal. There is no tricuspid regurgitation. Pericardium/Pleural Pericardium is normal in appearance with no evidence for significant pericardial effusion. Inferior Vena Cava Dilated inferior vena cava with >50% collapse upon inspiration consistent with elevated right atrial pressure, 8 mmHg. Aorta The aortic root at the level of the sinus of Valsalva measures 3.7 cm in diameter. The ascending aorta is dilated at 4.[address] scan is recommended if clinically indicated. Left Ventricular Outflow Tract Name Value Normal LVOT 2D LVOT Diameter 2.4 cm LVOT Doppler LVOT Peak Gradient 5 mmHg LVOT Mean Gradient 3 mmHg LVOT VTI 19 cm LVOT VTI/AV VTI Ratio 0.9 LVOT Stroke Volume 87 ml LVOT CO 9.0 l/min LVOT CI 3.8 l/min/m2 Pulmonic Valve Name Value Normal PV Doppler PV Peak Gradient 2 mmHg Mitral Valve Name Value Normal MV Doppler MV Peak Gradient 3 mmHg MV Mean Gradient 2 mmHg MV Decel Clay 454 cm/s2 MV PHT 49 ms MV Area (PHT) 4.5 cm2 4.0-5.0 MV Area (Cont Eq VTI) 4.0 cm2 MV Regurgitation Doppler MR Peak Gradient 108 mmHg MV Diastolic Function MV E Peak Velocity 76 cm/s MV A Peak Velocity 99 cm/s MV E/A 0.8 MV Decel Time 168 ms MV Annular TDI MV E/e' (Septal) 20.8 <=8.0 MV E/e' (Lateral) 10.3 <=8.0 MV E/e' (Average) 15.5 Tricuspid Valve Name Value Normal TV Regurgitation Doppler TR Peak Velocity 352 cm/s TR Peak Gradient 50 mmHg Estimated PAP/RSVP RA Pressure 8 mmHg <=5 PA Systolic Pressure 58 mmHg <36 RV Systolic Pressure 58 mmHg <36 Aortic Valve Name Value Normal AV Doppler AV Peak Velocity 126 cm/s AV Peak Gradient 6 mmHg AV Mean Gradient 4 mmHg AV VTI 22 cm AV Area (Cont Eq VTI) 3.9 cm2 >=3.0 AV Area (Cont Eq Devin) 4.3 cm2 AV Regurgitation 2D LVOT Area 4.6 cm2 Ventricles Name Value Normal LV Dimensions 2D/MM IVS Diastolic Thickness (2D) 0.8 cm 0.6-1.0 LVID Diastole (2D) 6.3 cm 4.2-5.8 LVID Diastole (MM) 6.3 cm 4.2-5.8 LVIW Diastolic Thickness (2D) 0.8 cm 0.6-1.0 LVID Systole (2D) 5.5 cm 2.5-4.0 LVID Systole (MM) 5.3 cm 2.5-4.0 LVOT Diameter 2.4 cm LV Mass (2D Cubed) 199.63 g 88.00-224.00 LV Mass Index (2D Cubed) 85 g/m2 49-115 Relative Wall Thickness (2D) 0.25 LV Fractional Shortening/Ejection Fraction 2D/MM LV Fractional Shortening (2D) 13 % 25-43 LV Fractional Shortening (MM) 17 % 25-43 LV EF (MM Teicholz) 34 % 52-72 LV EF (2D Teicholz) 28 % 52-72 LV Diastolic Volume (4C MOD) 221 ml LV EF (4C MOD) 41 % LV Diastolic Volume (2C MOD) 304 ml LV EF (2C MOD) 29 % LV Diastolic Volume (BP MOD) 263 ml 62-150 LV Diastolic Volume Index (BP MOD) 112 ml/m2 34-74 LV Systolic Volume (BP MOD) 171 ml 21-61 LV Systolic Volume Index (BP MOD) 73 ml/m2 11-31 LV EF (BP MOD) 35 % 52-72 LV Diastolic Length (4C) 10.4 cm LV Systolic Length (4C) 9.4 cm LV Stroke Volume (4C MOD) 91 ml LV CO (BP MOD) 9.8 l/min LV CI (BP MOD) 4.2 l/min/m2 Atria Name Value Normal LA Dimensions LA Volume (4C A-L) 55 ml LA Volume (BP A-L) 75 ml RA Dimensions RA Area (4C) 25.2 cm2 <=18.0 Report Signatures
[2025-01-02] MEDS: IPRATROPIUM 0.5 MG/ALBUTEROL SULFATE 2.5 MG AMPUL.NEB 3 ML INHALATION ×4 (02:30→21:55)
[2025-01-02 05:30] LABS: Hematocrit 51.6 % (42.0-52.0); Hemoglobin 16.4 g/dL (14.0-18.0); Immature Granulocyte Absolute 0.02 K/mm3 (0.00-0.031); Immature Granulocyte Percent A 0.3 % (0-0.5); Lymphocytes Absolute Auto 0.43 K/mm3 (0.9-3.2); Lymphocytes Percent Auto 6.5 % (18.3-44.2); Mean Corpuscular HGB Conc 31.8 g/dl (32-36); Mean Corpuscular Hemoglobin 29.1 pg (26-34); Mean Corpuscular Volume 91.7 fl (80-100); Mean Platelet Volume 9.7 fl (7.4-10.4); Monocytes Absolute Auto 0.6 K/mm3 (0.1-0.6); Monocytes Percent Auto 8.5 % (2.6-8.5); Neutrophils Absolute Auto 5.6 K/mm3 (1.3-6.7); Neutrophils Percent Auto 84.7 % (45.5-73.1); Platelet Count Result 258 k/mm3 (150-375); Red Blood Count 5.63 M/mm3 (4.6-6.20); Red Cell Distribution Width 14.6 % (11.5-14.5); White Blood Count 6.6 K/mm3 (4.5-10.0)
[2025-01-02 05:40] LABS: Alanine Aminotransferase 36 U/L (6-50); Albumin Level 4.2 g/dL (3.5-5.1); Alkaline Phosphatase 83 U/L (38-126); Anion Gap 6 mmol/L (4-12); Aspartate Amino Transferase 27 U/L (17-59); Bilirubin,Total 0.5 mg/dL (0.2-1.3); Blood Urea Nitrogen 19 mg/dL (9-20); Calcium 9.4 mg/dL (8.4-10.2); Carbon Dioxide 38 mmol/L (22-30); Chloride 91 mmol/L (98-107); Estimated CRCL calculation 104 ml/min; Estimated Glomerular Filt Rate > 60; Glucose 126 mg/dL (65-110); Lactic Acid Reflex 1.4 mmol/L (0.7-2.0); Potassium 5.2 mmol/L (3.4-5.0); Sodium 135 mmol/L (137-145)
[2025-01-02] MEDS: FLUTICASONE/SALMETEROL 45-21 MCG INHALER 1 PUFF 2 PUFF INHALATION ×2 (07:55→21:54)
[2025-01-02] MEDS: predniSONE 20 MG TABLET 40 MG PO (08:43)
[2025-01-02] MEDS: FUROSEMIDE INJ 40 MG/4 ML VIAL 20 MG IV PUSH (08:44)
[2025-01-02] MEDS: ENOXAPARIN 40 MG/0.4 ML SYRINGE SUB-Q (08:44)
--- NOTE | 2025-01-02 10:49 | PM.IMPN ---
Progress Note: A&P Assessment and Plan (1) Asthma exacerbation in COPD: Code(s): J44.1 - Chronic obstructive pulmonary disease with (acute) exacerbation Status: Acute (2) Congestive heart failure: Qualifiers: Heart failure chronicity: unspecified Heart failure type: unspecified Qualified Code(s): I50.9 - Heart failure, unspecified Code(s): I50.9 - Heart failure, unspecified Status: Acute Plan Acute hypoxemic hypercapnic respiratory failure Patient presented with SOB, smokes half pack per day Abg showed abg 7.326/54.2/63.2/27.7 CXR unremarkable CTA chest showed diffuse emphysema Continue PO prednisone, Duoneb and Symbicort Leg edema and SOB rule out CHF NT-proBNP 3550 ECHO pending hold lasix due to possible overdiuresis as noted by tachycardia monitor undiagnosed COPD with exacerbation patient is a smoker and smokes half PPD Continue DUoneb treatment with PO steroids and Symbicort Counseled about smoking cessation DVT prophylaxis on Sq lovenox Full code Surrogate decision maker Sister Madhuri Kinsey Subjective Date/time seen: 01/02/25 10:49 Interval history: Comfortable at bedside CTA chest showed emphysema patient still tachycardiac, Lasix discontinued and given 250 cc bolus NS awaiting ECHO Review of Systems Review of Systems: All other systems were reviewed and negative except as noted in the HPI above Exam Narrative: General: alert and comfortable Eyes: EOMI, PERRLA ENNT External ears normal, Neck is supple, no masses, Respiratory systems: Clear to auscultation Cardiovascular S1, S2, normal rhythm, no murmur, rub, or gallop; no thrill or palpable murmurs on palpation. Gastrointestinal: soft, non-tender, and non-distended abdomen with no masses; BS present Skin: no rash, lesions, ulcerations, subcutaneous nodules or induration Musculoskeletal: Lower extremities edema 3 + Neurologic: Alert and oriented x3, non focal Mental Status Exam: normal affect Objective Data Vital Signs Vital Signs: Vital Signs - 24 hr 01/01/25 11:01 01/01/25 13:03 01/01/25 13:03 Temperature Pulse Rate 114 H 92 92 Respiratory Rate 33 H 20 20 Blood Pressure 177/98 H Pulse Oximetry 98 Oxygen Delivery Nasal Cannula Oxygen Flow Rate 3 01/01/25 13:13 01/01/25 16:00 01/01/25 18:00 Temperature Pulse Rate 96 109 H 112 H Respiratory Rate 20 20 Blood Pressure 131/72 Pulse Oximetry 95 Oxygen Delivery Oxygen Flow Rate 01/01/25 20:00 01/01/25 20:00 01/01/25 20:08 Temperature 98.0 F Pulse Rate 115 H 113 H Respiratory Rate 18 Blood Pressure 123/78 Pulse Oximetry 92 94 Oxygen Delivery Nasal Cannula Oxygen Flow Rate 3 01/01/25 20:30 01/02/25 00:00 01/02/25 02:20 Temperature Pulse Rate 113 H 115 H Respiratory Rate 20 Blood Pressure Pulse Oximetry 95 Oxygen Delivery Nasal Cannula Oxygen Flow Rate 3 01/02/25 04:54 01/02/25 05:00 01/02/25 07:56 Temperature 97.7 F Pulse Rate 109 H 111 H Respiratory Rate 18 Blood Pressure 106/75 Pulse Oximetry 99 91 Oxygen Delivery Nasal Cannula Oxygen Flow Rate 3 01/02/25 07:56 01/02/25 08:05 01/02/25 09:16 Temperature 97.4 F L Pulse Rate 100 104 H 110 H Respiratory Rate 20 20 20 Blood Pressure 102/56 L Pulse Oximetry 93 Oxygen Delivery Oxygen Flow Rate Intake/Output Intake/Output: Intake & Output 12/30/24 12/31/24 01/01/25 01/02/25 23:59 23:59 23:59 23:59 Intake Total 1700 580 Balance 1700 580 Meds/Results Medications: Active Medications Generic Name Dose Route Start Last Admin Trade Name Freq PRN Reason Stop Dose Admin Acetaminophen 650 mg 01/01/25 10:47 Acetaminophen 325 Mg Tablet PO Q4H PRN Mild Pain (1-3) or Fever Albuterol/Ipratropium 3 ml 01/01/25 14:00 01/02/25 07:54 Ipratropium 0.5 Mg/Albuterol Sulfate 2.5 Mg Ampul.Neb 3 Ml INHALATION 3 ml Q6HRT [facility] Administration Albuterol/Ipratropium 3 ml 01/01/25 20:00 01/02/25 07:54 Ipratropium 0.5 Mg/Albuterol Sulfate 2.5 Mg Ampul.Neb 3 Ml INHALATION Not Given Q6HRT [facility] Enoxaparin Sodium 40 mg 01/02/25 09:00 01/02/25 08:44 Enoxaparin 40 Mg/0.4 Ml Syringe SUB-Q 40 mg DAILY SILVINO Administration Ondansetron HCl 4 mg 01/01/25 10:47 Ondansetron Inj 4 Mg/2 Ml Vial IV PUSH Q4H PRN Nausea Perflutren Lipid Microsphere 0 ml 01/01/25 17:51 Perflutren Lipid Microspheres 1.5 Ml Vial Diluted To 10 Ml Total Volume IV PUSH 01/04/25 17:52 ONCE PRN adequate visualization Protocol Prednisone 40 mg 01/01/25 18:00 01/02/25 08:43 Prednisone 20 Mg Tablet PO 40 mg DAILY@0800 SILVINO Administration Fluticasone/Salmeterol 2 puff 01/01/25 20:00 01/02/25 07:55 Fluticasone/Salmeterol 45-21 Mcg Inhaler 1 Puff INHALATION 2 puff Q12HRT SILVINO Administration Radiology Results: ITS Impressions Chest X-Ray 01/01/25 09:36 IMPRESSION: 1. Mild scarring in right mid and lower lung zones. 2. Emphysema. Chest CTA 01/01/25 19:30 IMPRESSION: No pulmonary embolus. No aortic dissection. Gastric distention and gastric contents. Air opacified bowel within the soft tissues of the anterior abdominal wall, incompletely evaluated on the current study. Labs Labs: Laboratory Results - last 24 hr 01/01/25 01/01/25 01/02/25 14:25 18:26 05:25 WBC 6.6 RBC 5.63 Hgb 16.4 Hct 51.6 MCV 91.7 MCH 29.1 MCHC 31.8 L RDW 14.6 H Plt Count 258 MPV 9.7 Immature Gran % (Auto) 0.3 Neut % (Auto) 84.7 H Lymph % (Auto) 6.5 L Terrell % (Auto) 8.5 Eos % (Auto) 0.0 Baso % (Auto) 0.0 L Lymph # (Auto) 0.43 L Terrell # (Auto) 0.6 Eos # (Auto) 0.0 Baso # (Auto) 0.0 Abs Immat Gran (auto) 0.02 Absolute Neuts (auto) 5.6 Absolute Nucleated RBC 0.000 Nucleated RBC % 0.0 Sodium 135 L Potassium 5.2 H Chloride 91 L Carbon Dioxide 38 H Anion Gap 6 BUN 19 Creatinine 0.84 Estim Creat Clear Calc 104 Estimated GFR > 60 Glucose 126 H Lactic Acid 1.4 Calcium 9.4 Magnesium 2.0 Total Bilirubin 0.5 AST 27 ALT 36 Alkaline Phosphatase 83 Troponin I 0.030 D 0.023 D Total Protein 8.0 Albumin 4.2
--- NOTE | 2025-01-02 11:19 | HOMEO2EVAL ---
Evaluation was performed at [facility] Home Oxygen Evaluation RC: Home Oxygen (O2) Evaluation Start: 01/02/25 08:41 Freq: ONCE Status: Active Protocol: RPE Activity Type Activity Date Activity User E-sign Co-sign Detail Recorded Client Recorded Date Recorded By Document 01/02/25 10:45 [email or web address] [email or web address] 01/02/25 11:19 DJO Document 01/02/25 10:50 [email or web address] [email or web address] 01/02/25 11:19 DJO Document 01/02/25 10:55 [email or web address] [email or web address] 01/02/25 11:19 DJO Document 01/02/25 11:00 [email or web address] [email or web address] 01/02/25 11:19 DJO Document 01/02/25 11:15 [email or web address] [email or web address] 01/02/25 11:19 DJO 01/02/25 01/02/25 01/02/25 10:45 10:50 10:55 Home O2 Evaluation [Oxygen] -Test Phase Resting Exercise Exercise -Oxygen Delivery Room Air Room Air Nasal Cannula -Oxygen Flow Rate (L/min) 1 [Pulse Oximetry] -Pulse Oximetry (90-100 %) 95 86 L 88 L [Pulse Rate] -Pulse Rate (60-100 beats/min) 96 112 H 113 H [Evaluation] -Activity Tolerance [Exercise] -Ambulation Distance (feet) -Ambulation Distance (meters) [Charges] -Evaluation Charges O2 Evaluation by Pulmonary 01/02/25 01/02/25 11:00 11:15 Home O2 Evaluation [Oxygen] -Test Phase Exercise Resting -Oxygen Delivery Nasal Cannula Room Air -Oxygen Flow Rate (L/min) 2 [Pulse Oximetry] -Pulse Oximetry (90-100 %) 91 94 [Pulse Rate] -Pulse Rate (60-100 beats/min) 114 H 100 [Evaluation] -Activity Tolerance Good [Exercise] -Ambulation Distance (feet) 750 -Ambulation Distance (meters) 228.58 [Charges] -Evaluation Charges
[2025-01-02] MEDS: SODIUM CHLORIDE 0.9% IV 500 ML 250 ML IV CONT (11:47)
[2025-01-03] VITALS (17 sets, daily range): BP systolic 105–122; BP diastolic 67–76; PULSE 79–107; RESP 16–20; TEMP 36.3–36.6; O2SAT 94–99
[2025-01-03 05:36] LABS: Basophils Percent Auto 0.3 % (0.2-1.2); Eosinophils Absolute Auto 0.1 K/mm3 (0-0.3); Eosinophils Percent Auto 0.8 % (0-4.4); Hematocrit 42.9 % (42.0-52.0); Hemoglobin 13.7 g/dL (14.0-18.0); Immature Granulocyte Absolute 0.02 K/mm3 (0.00-0.031); Immature Granulocyte Percent A 0.2 % (0-0.5); Lymphocytes Absolute Auto 2.01 K/mm3 (0.9-3.2); Mean Corpuscular HGB Conc 31.9 g/dl (32-36); Mean Corpuscular Hemoglobin 29.4 pg (26-34); Mean Corpuscular Volume 92.1 fl (80-100); Mean Platelet Volume 9.8 fl (7.4-10.4); Monocytes Absolute Auto 1.3 K/mm3 (0.1-0.6); Monocytes Percent Auto 11.8 % (2.6-8.5); Neutrophils Absolute Auto 7.7 K/mm3 (1.3-6.7); Neutrophils Percent Auto 68.9 % (45.5-73.1); Platelet Count Result 210 k/mm3 (150-375); Red Blood Count 4.66 M/mm3 (4.6-6.20); Red Cell Distribution Width 14.6 % (11.5-14.5); White Blood Count 11.2 K/mm3 (4.5-10.0)
[2025-01-03 05:54] LABS: Alanine Aminotransferase 25 U/L (6-50); Alkaline Phosphatase 55 U/L (38-126); Anion Gap 4 mmol/L (4-12); Aspartate Amino Transferase 21 U/L (17-59); Bilirubin,Total 0.5 mg/dL (0.2-1.3); Blood Urea Nitrogen 16 mg/dL (9-20); Calcium 8.3 mg/dL (8.4-10.2); Carbon Dioxide 36 mmol/L (22-30); Chloride 92 mmol/L (98-107); Estimated CRCL calculation 126 ml/min; Estimated Glomerular Filt Rate > 60; Glucose 87 mg/dL (65-110); Potassium 4.3 mmol/L (3.4-5.0); Sodium 132 mmol/L (137-145)
[2025-01-03] MEDS: ENOXAPARIN 40 MG/0.4 ML SYRINGE SUB-Q (08:08)
[2025-01-03] MEDS: predniSONE 20 MG TABLET 40 MG PO (08:08)
[2025-01-03] MEDS: IPRATROPIUM 0.5 MG/ALBUTEROL SULFATE 2.5 MG AMPUL.NEB 3 ML INHALATION ×3 (08:15→21:54)
--- NOTE | 2025-01-03 13:06 | P.PNIM_ITS ---
Progress Note: A&P Assessment and Plan (1) Asthma exacerbation in COPD: Code(s): J44.1 - Chronic obstructive pulmonary disease with (acute) exacerbation Status: Acute (2) Congestive heart failure: Qualifiers: Heart failure chronicity: unspecified Heart failure type: unspecified Qualified Code(s): I50.9 - Heart failure, unspecified Code(s): I50.9 - Heart failure, unspecified Status: Acute Plan Acute hypoxemic hypercapnic respiratory failure Patient presented with SOB, smokes half pack per day Abg showed abg 7.326/54.2/63.2/27.7 CXR unremarkable CTA chest showed diffuse emphysema Continue PO prednisone (tapering now on 30mg daily), Duoneb and Symbicort Leg edema and SOB rule out CHF NT-proBNP 3550 ECHO pending hold lasix due to possible overdiuresis as noted by tachycardia monitor undiagnosed COPD with exacerbation patient is a smoker and smokes half PPD Continue Duoneb treatment with PO steroids and Symbicort Counseled about smoking cessation DVT prophylaxis on Sq lovenox Full code awaiting ECHO read for discharge Subjective Date/time seen: 01/03/25 13:06 Interval history: Comfortable at bedside CTA chest showed emphysema tachycardia resolved with stopping lasix awaiting ECHO Review of Systems Review of Systems: All other systems were reviewed and negative except as noted in the HPI above Exam Narrative: General: alert and comfortable Eyes: EOMI, PERRLA ENNT External ears normal, Neck is supple, no masses, Respiratory systems: Clear to auscultation Cardiovascular S1, S2, normal rhythm, no murmur, rub, or gallop; no thrill or palpable murmurs on palpation. Gastrointestinal: soft, non-tender, and non-distended abdomen with no masses; BS present Skin: no rash, lesions, ulcerations, subcutaneous nodules or induration Musculoskeletal: Lower extremities edema 3 + Neurologic: Alert and oriented x3, non focal Mental Status Exam: normal affect Objective Data Vital Signs Vital Signs: Vital Signs - 24 hr 01/02/25 14:00 01/02/25 14:55 01/02/25 15:06 Temperature 97.8 F Pulse Rate 103 H 106 H 108 H Respiratory Rate 20 20 20 Blood Pressure 109/70 Pulse Oximetry 98 Oxygen Delivery Oxygen Flow Rate 01/02/25 16:00 01/02/25 18:00 01/02/25 20:00 Temperature 97.6 F Pulse Rate 115 H 108 H Respiratory Rate 18 Blood Pressure 98/72 L Pulse Oximetry 99 97 Oxygen Delivery Nasal Cannula Oxygen Flow Rate 2 01/02/25 20:00 01/02/25 21:42 01/02/25 21:55 Temperature 97.7 F Pulse Rate 104 H 100 Respiratory Rate 18 Blood Pressure 101/80 Pulse Oximetry 99 97 Oxygen Delivery Nasal Cannula Oxygen Flow Rate 2 01/02/25 21:56 01/03/25 00:00 01/03/25 04:00 Temperature Pulse Rate 96 104 H 100 Respiratory Rate 20 Blood Pressure Pulse Oximetry Oxygen Delivery Oxygen Flow Rate 01/03/25 04:45 01/03/25 06:00 01/03/25 08:00 Temperature 97.9 F Pulse Rate 97 83 Respiratory Rate 20 20 Blood Pressure 105/67 Pulse Oximetry 94 95 Oxygen Delivery Nasal Cannula Oxygen Flow Rate 2 01/03/25 08:00 01/03/25 08:15 01/03/25 08:15 Temperature Pulse Rate 97 83 83 Respiratory Rate 20 20 Blood Pressure Pulse Oximetry 97 Oxygen Delivery Nasal Cannula Oxygen Flow Rate 2 01/03/25 08:26 01/03/25 10:00 Temperature 97.4 F L Pulse Rate 89 79 Respiratory Rate 20 16 Blood Pressure 122/74 Pulse Oximetry 95 Oxygen Delivery Oxygen Flow Rate Intake/Output Intake/Output: Intake & Output 12/31/24 01/01/25 01/02/25 01/03/25 23:59 23:59 23:59 23:59 Intake Total 1700 1300 780 Balance 1700 1300 780 Meds/Results Medications: Active Medications Generic Name Dose Route Start Last Admin Trade Name Freq PRN Reason Stop Dose Admin Acetaminophen 650 mg 01/01/25 10:47 Acetaminophen 325 Mg Tablet PO Q4H PRN Mild Pain (1-3) or Fever Albuterol/Ipratropium 3 ml 01/01/25 14:00 01/03/25 08:15 Ipratropium 0.5 Mg/Albuterol Sulfate 2.5 Mg Ampul.Neb 3 Ml INHALATION 3 ml Q6HRT SILVINO Administration Enoxaparin Sodium 40 mg 01/02/25 09:00 01/03/25 08:08 Enoxaparin 40 Mg/0.4 Ml Syringe SUB-Q 40 mg DAILY SILVINO Administration Ondansetron HCl 4 mg 01/01/25 10:47 Ondansetron Inj 4 Mg/2 Ml Vial IV PUSH Q4H PRN Nausea Perflutren Lipid Microsphere 0 ml 01/01/25 17:51 Perflutren Lipid Microspheres 1.5 Ml Vial Diluted To 10 Ml Total Volume IV PUSH 01/04/25 17:52 ONCE PRN adequate visualization Protocol Prednisone 40 mg 01/01/25 18:00 01/03/25 08:08 Prednisone 20 Mg Tablet PO 40 mg DAILY@0800 SILVINO Administration Fluticasone/Salmeterol 2 puff 01/01/25 20:00 01/02/25 21:54 Fluticasone/Salmeterol 45-21 Mcg Inhaler 1 Puff INHALATION 2 puff Q12HRT SILVINO Administration Radiology Results: ITS Impressions Chest X-Ray 01/01/25 09:36 IMPRESSION: 1. Mild scarring in right mid and lower lung zones. 2. Emphysema. Chest CTA 01/01/25 19:30 IMPRESSION: No pulmonary embolus. No aortic dissection. Gastric distention and gastric contents. Air opacified bowel within the soft tissues of the anterior abdominal wall, incompletely evaluated on the current study. Labs Labs: Laboratory Results - last 24 hr 01/03/25 05:16 WBC 11.2 H RBC 4.66 Hgb 13.7 L Hct 42.9 MCV 92.1 MCH 29.4 MCHC 31.9 L RDW 14.6 H Plt Count 210 MPV 9.8 Immature Gran % (Auto) 0.2 Neut % (Auto) 68.9 Lymph % (Auto) 18.0 L Cabell % (Auto) 11.8 H Eos % (Auto) 0.8 Baso % (Auto) 0.3 Lymph # (Auto) 2.01 [place] # (Auto) 1.3 H Eos # (Auto) 0.1 Baso # (Auto) 0.0 Abs Immat Gran (auto) 0.02 Absolute Neuts (auto) 7.7 H Absolute Nucleated RBC 0.000 Nucleated RBC % 0.0 Sodium 132 L Potassium 4.3 Chloride 92 L Carbon Dioxide 36 H Anion Gap 4 BUN 16 Creatinine 0.68 L Estim Creat Clear Calc 126 Estimated GFR > 60 Glucose 87 Calcium 8.3 L Magnesium 2.0 Total Bilirubin 0.5 AST 21 ALT 25 Alkaline Phosphatase 55 Total Protein 6.0 L Albumin 3.0 L
[2025-01-03] MEDS: FLUTICASONE/SALMETEROL 45-21 MCG INHALER 1 PUFF 2 PUFF INHALATION ×2 (13:46→21:54)
[2025-01-04] VITALS (67 sets, daily range): BP systolic 106–124; BP diastolic 67–86; PULSE 88–120; RESP 16–20; TEMP 36.3–37; O2SAT 86–98
[2025-01-04] MEDS: IPRATROPIUM 0.5 MG/ALBUTEROL SULFATE 2.5 MG AMPUL.NEB 3 ML INHALATION ×4 (02:55→21:58)
[2025-01-04] MEDS: FLUTICASONE/SALMETEROL 45-21 MCG INHALER 1 PUFF 2 PUFF INHALATION ×2 (07:31→21:58)
--- NOTE | 2025-01-04 08:16 | P.CONCA_ITS ---
Assessment and Plan Assessment and plan (1) Cardiomyopathy: Code(s): I42.9 - Cardiomyopathy, unspecified Status: Acute Assessment and Plan: This is a new diagnosis. EF 30-35%. Unsure of the etiology at this point. * Will initiate GDMT with Entresto, ToprolXL * Closely monitor BP, renal function, and electrolytes * GDMT can be optimized further as an outpatient * Discussed LifeVest, but patient declines at this time * Eventual ischemic evaluation which can be scheduled as an outpatient (2) Congestive heart failure: Qualifiers: Heart failure chronicity: unspecified Heart failure type: unspecified Qualified Code(s): I50.9 - Heart failure, unspecified Code(s): I50.9 - Heart failure, unspecified Status: Acute Assessment and Plan: Improved clinically then worsened after large IV fluid administration and discontinuation of furosemide * Furosemide 40mg IV now * Daily weights * Strict I&O (3) Asthma exacerbation in COPD: Code(s): J44.1 - Chronic obstructive pulmonary disease with (acute) exacerbation Status: Acute Assessment and Plan: Improving with steroids. Management per hospitalist Plan Anticipate discharge within 24-48 hours if he remains stable. Will arrange for follow up in our office. History of Present Illness History of Present Illness Consult date/time: 01/04/25 08:16 Requesting physician: Rufina Graf MD Consult reason: congestive heart failure Reason For Visit: COPD Exacerbation/CHF Narrative: Omar Hines is a 54 year old male who is a former smoker with no past medical history. Cardiology is consulted because he has been found to have a cardiomyopathy. This is a patient who presented with a chief complaint of shortness of breath. He was also experiencing cough, congestion, and bilateral ankle and foot edema. Symptoms have been progressive over the past week. He is currently being treated for COPD exacerbation and is feeling better. An echo was performed that showed LV dysfunction with EF 30-35%. This is a new diagnosis. He was given IV furosemide earlier in his hospital stay but because of mild tachycardia he was felt to be dehydrated so furosemide was stopped and he received 1L IV fluids. He now has had return of lower extremity edema and is still requiring supplemental oxygen. He denies any chest pain, palpitations. Review of Systems 2 Review of Systems: All systems reviewed & are unremarkable except as noted in HPI and below PMFSH Family History Family History Mother Cervical cancer Father Heart failure Social History Social History Smoking packs per day: 1 Smoking cigarettes per day: 20.0 Years smoked: 30 Smoking pack-years: 30.00 Smoking status: Former smoker Tobacco type: cigarettes Alcohol intake: former Substance use type: does not use Do You Feel Safe in your Home?: Yes Lack of Transportation: No Lack of Food: Never True Current Housing: I Have Housing Concerned About Future Housing: No Difficulty Paying Gas/Electric Bills: No Difficulty Paying for Meds: No Currently Unemployed: No Education: Associate Degree Difficulty w/ Childcare or Family Care: No Spiritual care concerns: No Meds Home Medications and Allergies Home Medications ?Medication ?Instructions ?Recorded ?Confirmed ?Type guaifenesin 1,200 mg tablet, 1,200 mg PO BID 7 days #14 tabs 04/19/22 01/01/25 Rx extended release 12 hr (Mucinex) loratadine 10 mg tablet (Claritin) 10 mg PO DAILY #30 tabs 04/19/22 01/01/25 Rx Allergies Allergy/AdvReac Type Severity Reaction Status Date / Time codeine AdvReac Mild light Verified 01/01/25 20:18 headed, dizzy, sweating Vital Signs Vital Signs - 24 hr 01/03/25 08:26 01/03/25 10:00 01/03/25 12:00 Temperature 36.3 C L Pulse Rate 89 79 103 H Respiratory Rate 20 16 Blood Pressure 122/74 Pulse Oximetry 95 Oxygen Delivery Oxygen Flow Rate 01/03/25 13:47 01/03/25 13:49 01/03/25 13:55 Temperature Pulse Rate 105 H 105 H 104 H Respiratory Rate 20 20 20 Blood Pressure Pulse Oximetry 98 Oxygen Delivery Nasal Cannula Oxygen Flow Rate 3 01/03/25 14:00 01/03/25 16:00 01/03/25 18:00 Temperature 36.4 C L 36.3 C L Pulse Rate 107 H 105 H 106 H Respiratory Rate 18 16 Blood Pressure 114/72 116/76 Pulse Oximetry 99 99 Oxygen Delivery Oxygen Flow Rate 01/03/25 20:00 01/03/25 20:00 01/03/25 21:41 Temperature 36.4 C L Pulse Rate 98 102 H Respiratory Rate 16 Blood Pressure 119/72 Pulse Oximetry 97 97 Oxygen Delivery Nasal Cannula Oxygen Flow Rate 2 01/04/25 00:20 01/04/25 01:52 01/04/25 02:55 Temperature 36.3 C L Pulse Rate 114 H 91 88 Respiratory Rate 16 18 Blood Pressure 124/72 Pulse Oximetry 90 Oxygen Delivery Oxygen Flow Rate 01/04/25 03:05 01/04/25 04:00 01/04/25 06:00 Temperature 36.4 C L Pulse Rate 88 111 H 99 Respiratory Rate 18 16 Blood Pressure 106/81 Pulse Oximetry 90 Oxygen Delivery Oxygen Flow Rate 01/04/25 07:31 01/04/25 07:31 01/04/25 08:11 Temperature Pulse Rate 107 H 104 H Respiratory Rate 20 20 Blood Pressure Pulse Oximetry 93 Oxygen Delivery Nasal Cannula Oxygen Flow Rate 2 Exam 2 Const: General: comfortable, no acute distress, alert and awake O rientation/consciousness: patient oriented x3 HENMT: Head: normal to inspection Eyes: General: appearance normal, both eyes and all related structures P upils: Equal, round and reactive pupils present Neck: Neck: normal visual inspection, supple and no JVD Carotids: no bruits Resp: Effort & Inspection: normal respiratory effort Auscultation: rales bilateral, wheezes and diminished lung sounds Cardio: Rate: regular rate Rhythm: regular rhythm Heart sounds: S1 normal heart sound present, S2 normal heart sound present and no murmurs GI: Auscultation: normal bowel sounds Skin: General skin exam: normal color Neuro: General: patient oriented x3 Cranial nerves: Yes Equal, round and reactive pupils present Extrem: General: edema and pedal edema Psych: Appearance: grossly normal Mental Status: mental status grossly normal Results Labs and Meds 01/03/25 05:16 01/03/25 05:16 Lab results: Intake and Output 01/03/25 01/04/25 01/04/25 23:59 07:59 15:59 Intake Total 237 500 Balance 237 500 Intake: Oral 237 500 Other: # Unmeasured Voids 3 4
--- NOTE | 2025-01-04 10:26 | P.CDI_ITS ---
CDI Query Clarification Request Please specify type and acuity of heart failure if known. Risk Factors:Progress Note: A&P Assessment and Plan (2) Congestive heart failure: Qualifiers: Heart failure chronicity: unspecified Heart failure type: unspecified Qualified Code(s): I50.9 - Heart failure, unspecified Code(s): I50.9 - Heart failure, unspecified Status: Acute Clinical Indicators: BNP 3550 Treatment: IV lasix * Acute * Chronic * Acute on Chronic * Unknown * Systolic * Diastolic * Combined Systolic and Diastolic * Unknown <Sandra Lutz RN - Last Filed: 01/04/25 10:29> Clarified Diagnosis Clarified Diagnosis: Acute systolic heart failure <Rufina Graf MD - Last Filed: 01/04/25 10:36>
[2025-01-04] MEDS: predniSONE 10 MG TABLET 30 MG PO (10:29)
[2025-01-04] MEDS: ENOXAPARIN 40 MG/0.4 ML SYRINGE SUB-Q (10:29)
[2025-01-04] MEDS: FUROSEMIDE INJ 40 MG/4 ML VIAL IV PUSH (10:29)
--- NOTE | 2025-01-04 12:11 | PM.IMPN ---
Progress Note: A&P Assessment and Plan (1) Asthma exacerbation in COPD: Code(s): J44.1 - Chronic obstructive pulmonary disease with (acute) exacerbation Status: Acute (2) Congestive heart failure: Qualifiers: Heart failure chronicity: unspecified Heart failure type: unspecified Qualified Code(s): I50.9 - Heart failure, unspecified Code(s): I50.9 - Heart failure, unspecified Status: Acute Plan Acute hypoxemic hypercapnic respiratory failure Patient presented with SOB, smokes half pack per day Abg showed abg 7.326/54.2/63.2/27.7 CXR unremarkable CTA chest showed diffuse emphysema Continue PO prednisone (tapering now on 30mg daily), Duoneb and Symbicort Acute systolic heart failure Leg edema and SOB rule out CHF NT-proBNP 3550 ECHO showed EF 30-35% Now on Entresto and Metoprolol Cardiology following Undiagnosed COPD with exacerbation patient is a smoker and smokes half PPD Continue Duoneb treatment with PO steroids and Symbicort Counseled about smoking cessation DVT prophylaxis on Sq lovenox Full code titrating Entresto and Metoprolol possible discharge tomorrow Subjective Date/time seen: 01/04/25 12:11 Interval history: Comfortable at bedside now on Entresto and Metoprolol pe cardiology monitor one more day Review of Systems Review of Systems: All other systems were reviewed and negative except as noted in the HPI above Exam Narrative: General: alert and comfortable Eyes: EOMI, PERRLA ENNT External ears normal, Neck is supple, no masses, Respiratory systems: Clear to auscultation Cardiovascular S1, S2, normal rhythm, no murmur, rub, or gallop; no thrill or palpable murmurs on palpation. Gastrointestinal: soft, non-tender, and non-distended abdomen with no masses; BS present Skin: no rash, lesions, ulcerations, subcutaneous nodules or induration Musculoskeletal: Lower extremities edema 3 + Neurologic: Alert and oriented x3, non focal Mental Status Exam: normal affect Objective Data Vital Signs Vital Signs: Vital Signs - 24 hr 01/03/25 13:47 01/03/25 13:49 01/03/25 13:55 Temperature Pulse Rate 105 H 105 H 104 H Respiratory Rate 20 20 20 Blood Pressure Pulse Oximetry 98 Oxygen Delivery Nasal Cannula Oxygen Flow Rate 3 01/03/25 14:00 01/03/25 16:00 01/03/25 18:00 Temperature 97.5 F L 97.4 F L Pulse Rate 107 H 105 H 106 H Respiratory Rate 18 16 Blood Pressure 114/72 116/76 Pulse Oximetry 99 99 Oxygen Delivery Oxygen Flow Rate 01/03/25 20:00 01/03/25 20:00 01/03/25 21:41 Temperature 97.5 F L Pulse Rate 98 102 H Respiratory Rate 16 Blood Pressure 119/72 Pulse Oximetry 97 97 Oxygen Delivery Nasal Cannula Oxygen Flow Rate 2 01/04/25 00:20 01/04/25 01:52 01/04/25 02:55 Temperature 97.3 F L Pulse Rate 114 H 91 88 Respiratory Rate 16 18 Blood Pressure 124/72 Pulse Oximetry 90 Oxygen Delivery Oxygen Flow Rate 01/04/25 03:05 01/04/25 04:00 01/04/25 06:00 Temperature 97.5 F L Pulse Rate 88 111 H 99 Respiratory Rate 18 16 Blood Pressure 106/81 Pulse Oximetry 90 Oxygen Delivery Oxygen Flow Rate 01/04/25 07:31 01/04/25 07:31 01/04/25 08:11 Temperature Pulse Rate 107 H 104 H Respiratory Rate 20 20 Blood Pressure Pulse Oximetry 93 Oxygen Delivery Nasal Cannula Oxygen Flow Rate 2 01/04/25 10:00 Temperature 97.3 F L Pulse Rate 102 H Respiratory Rate 16 Blood Pressure 117/86 Pulse Oximetry 98 Oxygen Delivery Oxygen Flow Rate Intake/Output Intake/Output: Intake & Output 01/01/25 01/02/25 01/03/25 01/04/25 23:59 23:59 23:59 23:59 Intake Total 1700 1300 1497 740 Output Total 450 Balance 1700 1300 1497 290 Meds/Results Medications: Active Medications Generic Name Dose Route Start Last Admin Trade Name Freq PRN Reason Stop Dose Admin Acetaminophen 650 mg 01/01/25 10:47 Acetaminophen 325 Mg Tablet PO Q4H PRN Mild Pain (1-3) or Fever Albuterol/Ipratropium 3 ml 01/01/25 14:00 01/04/25 07:31 Ipratropium 0.5 Mg/Albuterol Sulfate 2.5 Mg Ampul.Neb 3 Ml INHALATION 3 ml Q6HRT SILVINO Administration Enoxaparin Sodium 40 mg 01/02/25 09:00 01/04/25 10:29 Enoxaparin 40 Mg/0.4 Ml Syringe SUB-Q 40 mg DAILY SILVINO Administration Metoprolol Succinate 12.5 mg 01/05/25 09:00 Metoprolol Succinate Ext Rel 12.5 Mg Tabcr PO QAM SILVINO Ondansetron HCl 4 mg 01/01/25 10:47 Ondansetron Inj 4 Mg/2 Ml Vial IV PUSH Q4H PRN Nausea Perflutren Lipid Microsphere 0 ml 01/01/25 17:51 Perflutren Lipid Microspheres 1.5 Ml Vial Diluted To 10 Ml Total Volume IV PUSH 01/04/25 17:52 ONCE PRN adequate visualization Protocol Prednisone 30 mg 01/04/25 08:00 01/04/25 10:29 Prednisone 10 Mg Tablet PO 30 mg DAILY@0800 SILVINO Administration Sacubitril/Valsartan 1 tab 01/04/25 21:00 Sacubitril/Valsartan 24-26 Mg Tablet PO Q12HR SILVINO Fluticasone/Salmeterol 2 puff 01/01/25 20:00 01/04/25 07:31 Fluticasone/Salmeterol 45-21 Mcg Inhaler 1 Puff INHALATION 2 puff Q12HRT SILVINO Administration Radiology Results: ITS Impressions Chest X-Ray 01/01/25 09:36 IMPRESSION: 1. Mild scarring in right mid and lower lung zones. 2. Emphysema. Chest CTA 01/01/25 19:30 IMPRESSION: No pulmonary embolus. No aortic dissection. Gastric distention and gastric contents. Air opacified bowel within the soft tissues of the anterior abdominal wall, incompletely evaluated on the current study.
--- NOTE | 2025-01-04 13:55 | BUHOMEO2 ---
Evaluation was performed at [facility] Home Oxygen Evaluation RC: Home Oxygen (O2) Evaluation Start: 01/02/25 08:41 Freq: ONCE Status: Active Protocol: RPE Activity Type Activity Date Activity User E-sign Co-sign Detail Recorded Client Recorded Date Recorded By Document 01/02/25 10:45 [email or web address] [email or web address] 01/02/25 11:19 DJO Document 01/02/25 10:50 [email or web address] [email or web address] 01/02/25 11:19 DJO Document 01/02/25 10:55 [email or web address] [email or web address] 01/02/25 11:19 DJO Document 01/02/25 11:00 [email or web address] [email or web address] 01/02/25 11:19 DJO Document 01/02/25 11:15 DJO [email or web address] 01/02/25 11:19 DJO Document 01/04/25 13:30 MELVI [email or web address] 01/04/25 13:55 MELVI Document 01/04/25 13:33 MELVI [email or web address] 01/04/25 13:55 MELVI Document 01/04/25 13:34 MELVI [email or web address] 01/04/25 13:55 MELVI Document 01/04/25 13:45 MELVI [email or web address] 01/04/25 13:55 MELVI 01/02/25 01/02/25 01/02/25 10:45 10:50 10:55 Home O2 Evaluation [Oxygen] -Test Phase Resting Exercise Exercise -Oxygen Delivery Room Air Room Air Nasal Cannula -Oxygen Flow Rate (L/min) 1 [Pulse Oximetry] -Pulse Oximetry (90-100 %) 95 86 L 88 L [Pulse Rate] -Pulse Rate (60-100 beats/min) 96 112 H 113 H [Evaluation] -Activity Tolerance [Exercise] -Ambulation Distance (feet) -Ambulation Distance (meters) [Comments] -Home Oxygen Evaluation Comments [Charges] -Evaluation Charges O2 Evaluation by Pulmonary 01/02/25 01/02/25 01/04/25 11:00 11:15 13:30 Home O2 Evaluation [Oxygen] -Test Phase Exercise Resting Resting -Oxygen Delivery Nasal Cannula Room Air Room Air -Oxygen Flow Rate (L/min) 2 [Pulse Oximetry] -Pulse Oximetry (90-100 %) 91 94 92 [Pulse Rate] -Pulse Rate (60-100 beats/min) 114 H 100 100 [Evaluation] -Activity Tolerance Good [Exercise] -Ambulation Distance (feet) 750 -Ambulation Distance (meters) 228.58 [Comments] -Home Oxygen Evaluation Comments [Charges] -Evaluation Charges O2 Evaluation by Pulmonary 01/04/25 01/04/25 01/04/25 13:33 13:34 13:45 Home O2 Evaluation [Oxygen] -Test Phase Exercise Exercise Resting -Oxygen Delivery Room Air Nasal Cannula Room Air -Oxygen Flow Rate (L/min) 2 [Pulse Oximetry] -Pulse Oximetry (90-100 %) 86 L 90 91 [Pulse Rate] -Pulse Rate (60-100 beats/min) 116 H 114 H 99 [Evaluation] -Activity Tolerance [Exercise] -Ambulation Distance (feet) -Ambulation Distance (meters) [Comments] -Home Oxygen Evaluation Comments Pt requires 2 liters O2 with activity [Charges] -Evaluation Charges
--- NOTE | 2025-01-04 13:56 | HOMEO2EVAL ---
Evaluation was performed at [facility] Home Oxygen Evaluation RC: Home Oxygen (O2) Evaluation Start: 01/02/25 08:41 Freq: ONCE Status: Active Protocol: RPE Activity Type Activity Date Activity User E-sign Co-sign Detail Recorded Client Recorded Date Recorded By Document 01/04/25 13:30 MELVI [email or web address] 01/04/25 13:55 MELVI Document 01/04/25 13:33 MELVI [email or web address] 01/04/25 13:55 MELVI Document 01/04/25 13:34 MELVI [email or web address] 01/04/25 13:55 MELVI Document 01/04/25 13:45 MELVI [email or web address] 01/04/25 13:55 MELVI 01/04/25 01/04/25 01/04/25 13:30 13:33 13:34 Home O2 Evaluation [Oxygen] -Test Phase Resting Exercise Exercise -Oxygen Delivery Room Air Room Air Nasal Cannula -Oxygen Flow Rate (L/min) 2 [Pulse Oximetry] -Pulse Oximetry (90-100 %) 92 86 L 90 [Pulse Rate] -Pulse Rate (60-100 beats/min) 100 116 H 114 H [Comments] -Home Oxygen Evaluation Comments Pt requires 2 liters O2 with activity [Charges] -Evaluation Charges O2 Evaluation by Pulmonary 01/04/25 13:45 Home O2 Evaluation [Oxygen] -Test Phase Resting -Oxygen Delivery Room Air -Oxygen Flow Rate (L/min) [Pulse Oximetry] -Pulse Oximetry (90-100 %) 91 [Pulse Rate] -Pulse Rate (60-100 beats/min) 99 [Comments] -Home Oxygen Evaluation Comments [Charges] -Evaluation Charges
--- NOTE | 2025-01-04 13:56 | PCRCNOTE ---
New home O2 eval completed for re-qualification. Previous eval past 48 hour discharge window. No changes. 2 L home O2 needed. Tank in room. IV resp Care DME
[2025-01-04] MEDS: SACUBITRIL/VALSARTAN 24-26 MG TABLET 1 TAB PO (20:46)
[2025-01-05] VITALS (21 sets, daily range): BP systolic 96–127; BP diastolic 55–76; PULSE 98–119; RESP 16–20; TEMP 36.6–36.9; O2SAT 93–97
--- NOTE | 2025-01-05 03:56 | PCRCNOTE ---
Window of time for administration has passed. See next scheduled administration.
[2025-01-05 05:35] LABS: Basophils Percent Auto 0.2 % (0.2-1.2); Eosinophils Percent Auto 0.3 % (0-4.4); Hematocrit 43.5 % (42.0-52.0); Hemoglobin 13.7 g/dL (14.0-18.0); Immature Granulocyte Absolute 0.02 K/mm3 (0.00-0.031); Immature Granulocyte Percent A 0.2 % (0-0.5); Lymphocytes Absolute Auto 1.09 K/mm3 (0.9-3.2); Lymphocytes Percent Auto 9.9 % (18.3-44.2); Mean Corpuscular HGB Conc 31.5 g/dl (32-36); Mean Corpuscular Hemoglobin 29.3 pg (26-34); Mean Corpuscular Volume 92.9 fl (80-100); Monocytes Absolute Auto 1.5 K/mm3 (0.1-0.6); Monocytes Percent Auto 13.4 % (2.6-8.5); Neutrophils Absolute Auto 8.3 K/mm3 (1.3-6.7); Platelet Count Result 205 k/mm3 (150-375); Red Blood Count 4.68 M/mm3 (4.6-6.20); Red Cell Distribution Width 14.6 % (11.5-14.5)
[2025-01-05 06:01] LABS: Alanine Aminotransferase 19 U/L (6-50); Albumin Level 3.1 g/dL (3.5-5.1); Alkaline Phosphatase 58 U/L (38-126); Aspartate Amino Transferase 20 U/L (17-59); Bilirubin,Total 0.6 mg/dL (0.2-1.3); Blood Urea Nitrogen 12 mg/dL (9-20); Calcium 8.6 mg/dL (8.4-10.2); Carbon Dioxide > 40 mmol/L (22-30); Chloride 94 mmol/L (98-107); Estimated CRCL calculation 137 ml/min; Estimated Glomerular Filt Rate > 60; Glucose 84 mg/dL (65-110); Magnesium 2.1 mg/dL (1.6-2.3); Potassium 4.1 mmol/L (3.4-5.0); Sodium 136 mmol/L (137-145)
[2025-01-05] MEDS: IPRATROPIUM 0.5 MG/ALBUTEROL SULFATE 2.5 MG AMPUL.NEB 3 ML INHALATION ×3 (07:30→20:09)
[2025-01-05] MEDS: FLUTICASONE/SALMETEROL 45-21 MCG INHALER 1 PUFF 2 PUFF INHALATION ×2 (07:31→20:11)
--- NOTE | 2025-01-05 09:39 | ECG_ITS ---
Test Date: 2025-01-05 11:23:18 Measurements Intervals [place] Rate: 102 P: 61 LA: 149 QRS: -87 QRSD: 107 T: 64 QT: 375 QTc: 490 Interpretive Statements SINUS TACHYCARDIA LEFT AXIS DEVIATION POSSIBLE LEFT ATRIAL ENLARGEMENT INCOMPLETE RIGHT BUNDLE BRANCH BLOCK CONSIDER INFERIOR INFARCT, AGE INDETERMINATE ABNORMAL ECG Compared to ECG 01/01/2025 08:46:39 HEART RATE HAS DECREASED Electronically Signed On 01-05-2025 13:15:00 [employer] by Dwain Pelayo D.O.
[2025-01-05] MEDS: METOPROLOL SUCCINATE EXT REL 12.5 MG TABCR PO (10:11)
[2025-01-05] MEDS: ENOXAPARIN 40 MG/0.4 ML SYRINGE SUB-Q (10:12)
[2025-01-05] MEDS: predniSONE 10 MG TABLET 30 MG PO (10:12)
[2025-01-05] MEDS: SACUBITRIL/VALSARTAN 24-26 MG TABLET 1 TAB PO ×2 (10:12→21:00)
[2025-01-05] MEDS: SODIUM CHLORIDE 0.9% IV 1,000 ML 999 ML IV CONT (11:45)
--- NOTE | 2025-01-05 13:54 | PM.PNCARD ---
Progress Note: A&P Assessment and Plan (1) Congestive heart failure: Qualifiers: Heart failure chronicity: unspecified Heart failure type: unspecified Qualified Code(s): I50.9 - Heart failure, unspecified Code(s): I50.9 - Heart failure, unspecified Status: Acute Plan Acute on chronic hypoxemic respiratory failure secondary to COPD and CHF Acute on chronic systolic heart failure ejection fraction 30-35% new diagnosis improving still decompensated COPD Plan Lasix 40 mg IV b.i.d. Entresto 24-26 po BID Metoprolol Xl 12.5 mg daily Subjective Date/time seen: 01/05/25 13:54 Interval history: no acute events Shortness of breath improving Tele: SR Review of Systems Review of Systems: All systems reviewed & are unremarkable except as noted in HPI and below Exam Const: General: comfortable, no acute distress, alert and awake Orientation/consciousness: patient oriented x3 HENMT: Head: normal to inspection Eyes: General: appearance normal, both eyes and all related structures Pupils: Equal, round and reactive pupils present Neck: Neck: normal visual inspection, supple and no JVD Carotids: no bruits Resp: Effort & Inspection: normal respiratory effort Auscultation: rales bilateral, wheezes and diminished lung sounds Cardio: Rate: regular rate Rhythm: regular rhythm Heart sounds: S1 normal heart sound present, S2 normal heart sound present and no murmurs GI: Auscultation: normal bowel sounds Skin: General skin exam: normal color Neuro: General: patient oriented x3 Cranial nerves: Yes Equal, round and reactive pupils present Extrem: General: edema and pedal edema Psych: Appearance: grossly normal Mental Status: mental status grossly normal Objective Data Vital Signs Vital Signs: Vital Signs - 24 hr 01/04/25 14:00 01/04/25 14:00 01/04/25 14:15 Temperature 36.3 C L Pulse Rate 111 H 110 H 111 H Respiratory Rate 16 Blood Pressure 114/74 Pulse Oximetry 96 Oxygen Delivery Oxygen Flow Rate 01/04/25 14:30 01/04/25 14:45 01/04/25 15:00 Temperature Pulse Rate 108 H 108 H 109 H Respiratory Rate Blood Pressure Pulse Oximetry Oxygen Delivery Oxygen Flow Rate 01/04/25 16:00 01/04/25 18:00 01/04/25 20:00 Temperature 36.8 C Pulse Rate 110 H 112 H 104 H Respiratory Rate 16 Blood Pressure 109/67 Pulse Oximetry 93 Oxygen Delivery Oxygen Flow Rate 01/04/25 20:30 01/04/25 20:45 01/04/25 21:00 Temperature Pulse Rate 111 H 107 H 103 H Respiratory Rate Blood Pressure Pulse Oximetry Oxygen Delivery Oxygen Flow Rate 01/04/25 21:24 01/04/25 21:30 01/04/25 21:45 Temperature Pulse Rate 120 H 110 H 108 H Respiratory Rate Blood Pressure Pulse Oximetry Oxygen Delivery Oxygen Flow Rate 01/04/25 21:55 01/04/25 21:58 01/04/25 22:09 Temperature 37.0 C Pulse Rate 100 96 101 H Respiratory Rate 20 20 20 Blood Pressure 116/68 Pulse Oximetry 96 Oxygen Delivery Oxygen Flow Rate 01/05/25 00:00 01/05/25 00:49 01/05/25 04:00 Temperature 36.6 C Pulse Rate 114 H 104 H 119 H Respiratory Rate 20 Blood Pressure 114/73 Pulse Oximetry 96 Oxygen Delivery Oxygen Flow Rate 01/05/25 05:02 01/05/25 07:31 01/05/25 07:31 Temperature 36.9 C Pulse Rate 114 H 114 H Respiratory Rate 20 20 Blood Pressure 121/76 Pulse Oximetry 95 95 Oxygen Delivery Nasal Cannula Oxygen Flow Rate 2 01/05/25 07:45 01/05/25 10:00 01/05/25 10:11 Temperature 36.8 C Pulse Rate 112 H 112 H 112 H Respiratory Rate 20 16 Blood Pressure 106/55 L Pulse Oximetry 95 Oxygen Delivery Oxygen Flow Rate 01/05/25 13:42 01/05/25 13:49 Temperature Pulse Rate 107 H 107 H Respiratory Rate 20 20 Blood Pressure Pulse Oximetry Oxygen Delivery Oxygen Flow Rate Intake/Output Intake/Output: Intake & Output 01/02/25 01/03/25 01/04/25 01/05/25 23:59 23:59 23:59 23:59 Intake Total 1300 1497 1700 1210 Output Total 1650 Balance 1300 1497 50 1210 Meds/Results Medications: Active Medications Generic Name Dose Route Start Last Admin Trade Name Freq PRN Reason Stop Dose Admin Acetaminophen 650 mg 01/01/25 10:47 Acetaminophen 325 Mg Tablet PO Q4H PRN Mild Pain (1-3) or Fever Albuterol/Ipratropium 3 ml 01/01/25 14:00 01/05/25 13:42 Ipratropium 0.5 Mg/Albuterol Sulfate 2.5 Mg Ampul.Neb 3 Ml INHALATION 3 ml Q6HRT SILVINO Administration Enoxaparin Sodium 40 mg 01/02/25 09:00 01/05/25 10:12 Enoxaparin 40 Mg/0.4 Ml Syringe SUB-Q 40 mg DAILY SILVINO Administration Metoprolol Succinate 12.5 mg 01/05/25 09:00 01/05/25 10:11 Metoprolol Succinate Ext Rel 12.5 Mg Tabcr PO 12.5 mg QAM SILVINO Administration Ondansetron HCl 4 mg 01/01/25 10:47 Ondansetron Inj 4 Mg/2 Ml Vial IV PUSH Q4H PRN Nausea Prednisone 30 mg 01/04/25 08:00 01/05/25 10:12 Prednisone 10 Mg Tablet PO 30 mg DAILY@0800 SILVINO Administration Sacubitril/Valsartan 1 tab 01/04/25 21:00 01/05/25 10:12 Sacubitril/Valsartan 24-26 Mg Tablet PO 1 tab Q12HR SILVINO Administration Fluticasone/Salmeterol 2 puff 01/01/25 20:00 01/05/25 07:31 Fluticasone/Salmeterol 45-21 Mcg Inhaler 1 Puff INHALATION 2 puff Q12HRT SILVINO Administration Radiology Results: ITS Impressions Chest CTA 01/01/25 19:30 IMPRESSION: No pulmonary embolus. No aortic dissection. Gastric distention and gastric contents. Air opacified bowel within the soft tissues of the anterior abdominal wall, incompletely evaluated on the current study. Chest X-Ray 01/05/25 10:37 IMPRESSION: 1. Severe emphysema. Labs Labs: Laboratory Results - last 24 hr 01/05/25 04:51 WBC 11.0 H RBC 4.68 Hgb 13.7 L Hct 43.5 MCV 92.9 MCH 29.3 MCHC 31.5 L RDW 14.6 H Plt Count 205 MPV 10.0 Immature Gran % (Auto) 0.2 Neut % (Auto) 76.0 H Lymph % (Auto) 9.9 L [place] % (Auto) 13.4 H Eos % (Auto) 0.3 Baso % (Auto) 0.2 Lymph # (Auto) 1.09 [place] # (Auto) 1.5 H Eos # (Auto) 0.0 Baso # (Auto) 0.0 Abs Immat Gran (auto) 0.02 Absolute Neuts (auto) 8.3 H Absolute Nucleated RBC 0.000 Nucleated RBC % 0.0 Sodium 136 L Potassium 4.1 Chloride 94 L Carbon Dioxide > 40 H Anion Gap BUN 12 Creatinine 0.62 L Estim Creat Clear Calc 137 Estimated GFR > 60 Glucose 84 Calcium 8.6 Magnesium 2.1 Total Bilirubin 0.6 AST 20 ALT 19 Alkaline Phosphatase 58 Total Protein 6.0 L Albumin 3.1 L
--- NOTE | 2025-01-05 14:16 | P.PNIM_ITS ---
Progress Note: A&P Assessment and Plan (1) Asthma exacerbation in COPD: Code(s): J44.1 - Chronic obstructive pulmonary disease with (acute) exacerbation Status: Acute (2) Congestive heart failure: Qualifiers: Heart failure chronicity: unspecified Heart failure type: unspecified Qualified Code(s): I50.9 - Heart failure, unspecified Code(s): I50.9 - Heart failure, unspecified Status: Acute Plan Acute hypoxemic hypercapnic respiratory failure Patient presented with SOB, smokes half pack per day Abg showed abg 7.326/54.2/63.2/27.7 CXR unremarkable CTA chest showed diffuse emphysema Continue PO prednisone (tapering now on 30mg daily), Duoneb and Symbicort Acute systolic heart failure Leg edema and SOB rule out CHF NT-proBNP 3550 ECHO showed EF 30-35% On Entresto and Metoprolol Continue diuresis with acetazolamide since patient has alskalosis Cardiology following Metabolic alkalosis From diuresis changed to Acetazolamide CO2 >40 monitor Undiagnosed COPD with exacerbation patient is a smoker and smokes half PPD Continue Duoneb treatment with PO steroids and Symbicort Counseled about smoking cessation DVT prophylaxis on Sq lovenox Full code possible discharge tomorrow Subjective Date/time seen: 01/05/25 14:16 Interval history: Comfortable at bedside Cardiology evaluated adn recommended oen more day of diuresis since patient is having alkalosis will continue diuresis with Actazolamide. Review of Systems Review of Systems: All other systems were reviewed and negative except as noted in the HPI above Exam Narrative: General: alert and comfortable Eyes: EOMI, PERRLA ENNT External ears normal, Neck is supple, no masses, Respiratory systems: Clear to auscultation Cardiovascular S1, S2, normal rhythm, no murmur, rub, or gallop; no thrill or palpable murmurs on palpation. Gastrointestinal: soft, non-tender, and non-distended abdomen with no masses; BS present Skin: no rash, lesions, ulcerations, subcutaneous nodules or induration Musculoskeletal: Lower extremities edema 3 + Neurologic: Alert and oriented x3, non focal Mental Status Exam: normal affect Objective Data Vital Signs Vital Signs: Vital Signs - 24 hr 01/04/25 14:30 01/04/25 14:45 01/04/25 15:00 Temperature Pulse Rate 108 H 108 H 109 H Respiratory Rate Blood Pressure Pulse Oximetry Oxygen Delivery Oxygen Flow Rate 01/04/25 16:00 01/04/25 18:00 01/04/25 20:00 Temperature 98.2 F Pulse Rate 110 H 112 H 104 H Respiratory Rate 16 Blood Pressure 109/67 Pulse Oximetry 93 Oxygen Delivery Oxygen Flow Rate 01/04/25 20:30 01/04/25 20:45 01/04/25 21:00 Temperature Pulse Rate 111 H 107 H 103 H Respiratory Rate Blood Pressure Pulse Oximetry Oxygen Delivery Oxygen Flow Rate 01/04/25 21:24 01/04/25 21:30 01/04/25 21:45 Temperature Pulse Rate 120 H 110 H 108 H Respiratory Rate Blood Pressure Pulse Oximetry Oxygen Delivery Oxygen Flow Rate 01/04/25 21:55 01/04/25 21:58 01/04/25 22:09 Temperature 98.6 F Pulse Rate 100 96 101 H Respiratory Rate 20 20 20 Blood Pressure 116/68 Pulse Oximetry 96 Oxygen Delivery Oxygen Flow Rate 01/05/25 00:00 01/05/25 00:49 01/05/25 04:00 Temperature 97.8 F Pulse Rate 114 H 104 H 119 H Respiratory Rate 20 Blood Pressure 114/73 Pulse Oximetry 96 Oxygen Delivery Oxygen Flow Rate 01/05/25 05:02 01/05/25 07:31 01/05/25 07:31 Temperature 98.5 F Pulse Rate 114 H 114 H Respiratory Rate 20 20 Blood Pressure 121/76 Pulse Oximetry 95 95 Oxygen Delivery Nasal Cannula Oxygen Flow Rate 2 01/05/25 07:45 01/05/25 10:00 01/05/25 10:11 Temperature 98.3 F Pulse Rate 112 H 112 H 112 H Respiratory Rate 20 16 Blood Pressure 106/55 L Pulse Oximetry 95 Oxygen Delivery Oxygen Flow Rate 01/05/25 13:42 01/05/25 13:49 Temperature Pulse Rate 107 H 107 H Respiratory Rate 20 20 Blood Pressure Pulse Oximetry Oxygen Delivery Oxygen Flow Rate Intake/Output Intake/Output: Intake & Output 01/02/25 01/03/25 01/04/25 01/05/25 23:59 23:59 23:59 23:59 Intake Total 1300 1497 1700 1210 Output Total 1650 Balance 1300 1497 50 1210 Meds/Results Medications: Active Medications Generic Name Dose Route Start Last Admin Trade Name Freq PRN Reason Stop Dose Admin Acetaminophen 650 mg 01/01/25 10:47 Acetaminophen 325 Mg Tablet PO Q4H PRN Mild Pain (1-3) or Fever Acetazolamide Sodium 500 mg 01/06/25 09:00 Acetazolamide Sodium For Inj 500 Mg Vial IV PUSH DAILY SILVINO Albuterol/Ipratropium 3 ml 01/01/25 14:00 01/05/25 13:42 Ipratropium 0.5 Mg/Albuterol Sulfate 2.5 Mg Ampul.Neb 3 Ml INHALATION 3 ml Q6HRT SILVINO Administration Enoxaparin Sodium 40 mg 01/02/25 09:00 01/05/25 10:12 Enoxaparin 40 Mg/0.4 Ml Syringe SUB-Q 40 mg DAILY SILVINO Administration Metoprolol Succinate 12.5 mg 01/05/25 09:00 01/05/25 10:11 Metoprolol Succinate Ext Rel 12.5 Mg Tabcr PO 12.5 mg QAM SILVINO Administration Ondansetron HCl 4 mg 01/01/25 10:47 Ondansetron Inj 4 Mg/2 Ml Vial IV PUSH Q4H PRN Nausea Prednisone 30 mg 01/04/25 08:00 01/05/25 10:12 Prednisone 10 Mg Tablet PO 30 mg DAILY@0800 SILVINO Administration Sacubitril/Valsartan 1 tab 01/04/25 21:00 01/05/25 10:12 Sacubitril/Valsartan 24-26 Mg Tablet PO 1 tab Q12HR SILVINO Administration Fluticasone/Salmeterol 2 puff 01/01/25 20:00 01/05/25 07:31 Fluticasone/Salmeterol 45-21 Mcg Inhaler 1 Puff INHALATION 2 puff Q12HRT SILVINO Administration Radiology Results: ITS Impressions Chest CTA 01/01/25 19:30 IMPRESSION: No pulmonary embolus. No aortic dissection. Gastric distention and gastric contents. Air opacified bowel within the soft tissues of the anterior abdominal wall, incompletely evaluated on the current study. Chest X-Ray 01/05/25 10:37 IMPRESSION: 1. Severe emphysema. Labs Labs: Laboratory Results - last 24 hr 01/05/25 04:51 WBC 11.0 H RBC 4.68 Hgb 13.7 L Hct 43.5 MCV 92.9 MCH 29.3 MCHC 31.5 L RDW 14.6 H Plt Count 205 MPV 10.0 Immature Gran % (Auto) 0.2 Neut % (Auto) 76.0 H Lymph % (Auto) 9.9 L [place] % (Auto) 13.4 H Eos % (Auto) 0.3 Baso % (Auto) 0.2 Lymph # (Auto) 1.09 [place] # (Auto) 1.5 H Eos # (Auto) 0.0 Baso # (Auto) 0.0 Abs Immat Gran (auto) 0.02 Absolute Neuts (auto) 8.3 H Absolute Nucleated RBC 0.000 Nucleated RBC % 0.0 Sodium 136 L Potassium 4.1 Chloride 94 L Carbon Dioxide > 40 H Anion Gap BUN 12 Creatinine 0.62 L Estim Creat Clear Calc 137 Estimated GFR > 60 Glucose 84 Calcium 8.6 Magnesium 2.1 Total Bilirubin 0.6 AST 20 ALT 19 Alkaline Phosphatase 58 Total Protein 6.0 L Albumin 3.1 L
[2025-01-06] VITALS (15 sets, daily range): BP systolic 95–104; BP diastolic 60–65; PULSE 90–110; RESP 16–20; TEMP 36.5–36.6; O2SAT 92–95
[2025-01-06] MEDS: IPRATROPIUM 0.5 MG/ALBUTEROL SULFATE 2.5 MG AMPUL.NEB 3 ML INHALATION ×4 (02:40→21:00)
[2025-01-06 05:23] LABS: Basophils Percent Auto 0.2 % (0.2-1.2); Eosinophils Absolute Auto 0.1 K/mm3 (0-0.3); Hematocrit 45.1 % (42.0-52.0); Hemoglobin 14.2 g/dL (14.0-18.0); Immature Granulocyte Absolute 0.02 K/mm3 (0.00-0.031); Immature Granulocyte Percent A 0.2 % (0-0.5); Lymphocytes Absolute Auto 1.66 K/mm3 (0.9-3.2); Lymphocytes Percent Auto 20.3 % (18.3-44.2); Mean Corpuscular HGB Conc 31.5 g/dl (32-36); Mean Platelet Volume 9.7 fl (7.4-10.4); Monocytes Absolute Auto 1.2 K/mm3 (0.1-0.6); Monocytes Percent Auto 14.3 % (2.6-8.5); Neutrophils Absolute Auto 5.2 K/mm3 (1.3-6.7); Platelet Count Result 192 k/mm3 (150-375); Red Cell Distribution Width 14.4 % (11.5-14.5); White Blood Count 8.2 K/mm3 (4.5-10.0)
[2025-01-06 05:37] LABS: Alanine Aminotransferase 18 U/L (6-50); Albumin Level 3.3 g/dL (3.5-5.1); Alkaline Phosphatase 57 U/L (38-126); Anion Gap 5 mmol/L (4-12); Aspartate Amino Transferase 15 U/L (17-59); Bilirubin,Total 0.6 mg/dL (0.2-1.3); Blood Urea Nitrogen 10 mg/dL (9-20); Calcium 8.9 mg/dL (8.4-10.2); Carbon Dioxide 37 mmol/L (22-30); Chloride 95 mmol/L (98-107); Estimated CRCL calculation 131 ml/min; Estimated Glomerular Filt Rate > 60; Glucose 88 mg/dL (65-110); Magnesium 2.1 mg/dL (1.6-2.3); Potassium 4.2 mmol/L (3.4-5.0); Sodium 137 mmol/L (137-145)
[2025-01-06] MEDS: FLUTICASONE/SALMETEROL 45-21 MCG INHALER 1 PUFF 2 PUFF INHALATION ×2 (08:24→21:00)
[2025-01-06] MEDS: predniSONE 10 MG TABLET 30 MG PO (10:01)
[2025-01-06] MEDS: ENOXAPARIN 40 MG/0.4 ML SYRINGE SUB-Q (10:01)
--- NOTE | 2025-01-06 10:14 | PC.NURSE ---
Per Dr. Jose J sahni to give morning medication including IV diamox, metoprolol, and entresto as long as systolic BP is >90. Current BP is 93/60.
[2025-01-06] MEDS: WATER, STERILE FOR INJECTION 10 ML VIAL XX (10:26)
[2025-01-06] MEDS: acetaZOLAMIDE SODIUM FOR INJ 500 MG VIAL IV PUSH (10:26)
[2025-01-06] MEDS: SACUBITRIL/VALSARTAN 24-26 MG TABLET 1 TAB PO ×2 (10:26→20:40)
[2025-01-06] MEDS: METOPROLOL SUCCINATE EXT REL 12.5 MG TABCR PO (10:26)
--- NOTE | 2025-01-06 11:52 | P.PNCA_ITS ---
Progress Note: A&P Assessment and Plan (1) Congestive heart failure: Qualifiers: Heart failure chronicity: unspecified Heart failure type: unspecified Qualified Code(s): I50.9 - Heart failure, unspecified Code(s): I50.9 - Heart failure, unspecified Status: Acute Plan Acute on chronic hypoxemic respiratory failure secondary to COPD and CHF Acute on chronic systolic heart failure ejection fraction 30-35% new diagnosis improving still decompensated COPD Plan Lasix 40 mg IV b.i.d. Entresto 24-26 po BID Metoprolol Xl 12.5 mg daily Subjective Date/time seen: 01/06/25 11:52 Interval history: No acute events Shortness of breath improving Lower extremity edema improving Telemetry sinus rhythm Review of Systems Review of Systems: All systems reviewed & are unremarkable except as noted in HPI and below Exam Narrative: General: alert and comfortable Eyes: EOMI, PERRLA ENNT External ears normal, Neck is supple, no masses, Respiratory systems: Clear to auscultation Cardiovascular S1, S2, normal rhythm, no murmur, rub, or gallop; no thrill or palpable murmurs on palpation. Gastrointestinal: soft, non-tender, and non-distended abdomen with no masses; BS present Skin: no rash, lesions, ulcerations, subcutaneous nodules or induration Musculoskeletal: Lower extremities edema 3 + Neurologic: Alert and oriented x3, non focal Mental Status Exam: normal affect Objective Data Vital Signs Vital Signs: Vital Signs - 24 hr 01/05/25 12:00 01/05/25 13:42 01/05/25 13:49 Temperature Pulse Rate 98 107 H 107 H Respiratory Rate 20 20 Blood Pressure Pulse Oximetry Oxygen Delivery Oxygen Flow Rate 01/05/25 14:00 01/05/25 16:00 01/05/25 18:00 Temperature 36.6 C 36.6 C Pulse Rate 110 H 101 H 107 H Respiratory Rate 16 16 Blood Pressure 110/62 127/76 Pulse Oximetry 96 97 Oxygen Delivery Oxygen Flow Rate 01/05/25 20:00 01/05/25 20:10 01/05/25 20:12 Temperature Pulse Rate 102 H 99 Respiratory Rate 20 Blood Pressure Pulse Oximetry 93 Oxygen Delivery Nasal Cannula Oxygen Flow Rate 2 01/05/25 20:21 01/05/25 22:00 01/06/25 00:00 Temperature 36.9 C Pulse Rate 101 H 102 H 102 H Respiratory Rate 20 20 Blood Pressure 96/65 L Pulse Oximetry 97 Oxygen Delivery Oxygen Flow Rate 01/06/25 02:41 01/06/25 04:00 01/06/25 08:15 Temperature 36.6 C Pulse Rate 90 109 H 109 H Respiratory Rate 20 16 Blood Pressure 95/60 L Pulse Oximetry 92 Oxygen Delivery Oxygen Flow Rate 01/06/25 08:27 01/06/25 08:27 01/06/25 08:38 Temperature Pulse Rate 107 H 105 H Respiratory Rate 20 20 Blood Pressure Pulse Oximetry 95 Oxygen Delivery Room Air Oxygen Flow Rate 01/06/25 10:26 Temperature Pulse Rate 110 H Respiratory Rate Blood Pressure Pulse Oximetry Oxygen Delivery Oxygen Flow Rate Intake/Output Intake/Output: Intake & Output 01/03/25 01/04/25 01/05/25 01/06/25 23:59 23:59 23:59 23:59 Intake Total 1497 1700 2180 1020 Output Total 1650 Balance 1497 50 2180 1020 Meds/Results Medications: Active Medications Generic Name Dose Route Start Last Admin Trade Name Freq PRN Reason Stop Dose Admin Acetaminophen 650 mg 01/01/25 10:47 Acetaminophen 325 Mg Tablet PO Q4H PRN Mild Pain (1-3) or Fever Albuterol/Ipratropium 3 ml 01/01/25 14:00 01/06/25 08:24 Ipratropium 0.5 Mg/Albuterol Sulfate 2.5 Mg Ampul.Neb 3 Ml INHALATION 3 ml Q6HRT SILVINO Administration Enoxaparin Sodium 40 mg 01/02/25 09:00 01/06/25 10:01 Enoxaparin 40 Mg/0.4 Ml Syringe SUB-Q 40 mg DAILY SILVINO Administration Sodium Chloride 500 mls @ 300 mls/hr 01/06/25 11:45 Normal Saline Iv IV CONT 01/06/25 13:24 .Q1H40M ONE Metoprolol Succinate 12.5 mg 01/05/25 09:00 01/06/25 10:26 Metoprolol Succinate Ext Rel 12.5 Mg Tabcr PO 12.5 mg QAM SILVINO Administration Ondansetron HCl 4 mg 01/01/25 10:47 Ondansetron Inj 4 Mg/2 Ml Vial IV PUSH Q4H PRN Nausea Prednisone 30 mg 01/04/25 08:00 01/06/25 10:01 Prednisone 10 Mg Tablet PO 30 mg DAILY@0800 SILVINO Administration Sacubitril/Valsartan 1 tab 01/04/25 21:00 01/06/25 10:26 Sacubitril/Valsartan 24-26 Mg Tablet PO 1 tab Q12HR SILVINO Administration Fluticasone/Salmeterol 2 puff 01/01/25 20:00 01/06/25 08:24 Fluticasone/Salmeterol 45-21 Mcg Inhaler 1 Puff INHALATION 2 puff Q12HRT SILVINO Administration Radiology Results: ITS Impressions Chest CTA 01/01/25 19:30 IMPRESSION: No pulmonary embolus. No aortic dissection. Gastric distention and gastric contents. Air opacified bowel within the soft tissues of the anterior abdominal wall, incompletely evaluated on the current study. Chest X-Ray 01/05/25 10:37 IMPRESSION: 1. Severe emphysema. Labs Labs: Laboratory Results - last 24 hr 01/06/25 05:04 WBC 8.2 RBC 4.90 Hgb 14.2 Hct 45.1 MCV 92.0 MCH 29.0 MCHC 31.5 L RDW 14.4 Plt Count 192 MPV 9.7 Immature Gran % (Auto) 0.2 Neut % (Auto) 64.0 Lymph % (Auto) 20.3 [place] % (Auto) 14.3 H Eos % (Auto) 1.0 Baso % (Auto) 0.2 Lymph # (Auto) 1.66 [place] # (Auto) 1.2 H Eos # (Auto) 0.1 Baso # (Auto) 0.0 Abs Immat Gran (auto) 0.02 Absolute Neuts (auto) 5.2 Absolute Nucleated RBC 0.000 Nucleated RBC % 0.0 Sodium 137 Potassium 4.2 Chloride 95 L Carbon Dioxide 37 H Anion Gap 5 BUN 10 Creatinine 0.65 L Estim Creat Clear Calc 131 Estimated GFR > 60 Glucose 88 Calcium 8.9 Magnesium 2.1 Total Bilirubin 0.6 AST 15 L ALT 18 Alkaline Phosphatase 57 Total Protein 6.0 L Albumin 3.3 L
[2025-01-06] MEDS: SODIUM CHLORIDE 0.9% IV 500 ML 300 ML IV CONT (13:00)
[2025-01-07] VITALS (12 sets, daily range): BP systolic 110–112; BP diastolic 71; PULSE 93–109; RESP 18–20; TEMP 36.4–36.7; O2SAT 92–95
[2025-01-07] MEDS: IPRATROPIUM 0.5 MG/ALBUTEROL SULFATE 2.5 MG AMPUL.NEB 3 ML INHALATION ×2 (02:57→08:55)
[2025-01-07] MEDS: FLUTICASONE/SALMETEROL 45-21 MCG INHALER 1 PUFF 2 PUFF INHALATION (08:55)
--- NOTE | 2025-01-07 09:05 | P.PNCA_ITS ---
Progress Note: A&P Assessment and Plan (1) Cardiomyopathy: Code(s): I42.9 - Cardiomyopathy, unspecified Status: Acute Assessment and Plan: This is a new diagnosis. EF 30-35%. Unsure of the etiology at this point. * Continue GDMT with Entresto, Toprol XL. Increase Toprol to 25mg daily * Will add spironolactone today * BP and renal function stable * GDMT can be optimized further as an outpatient * Discussed LifeVest, but patient declined * Eventual ischemic evaluation which can be scheduled as an outpatient * OK for discharge today from a cardiac standpoint. (2) Congestive heart failure: Qualifiers: Heart failure chronicity: unspecified Heart failure type: unspecified Qualified Code(s): I50.9 - Heart failure, unspecified Code(s): I50.9 - Heart failure, unspecified Status: Acute Assessment and Plan: Improved clinically then worsened after large IV fluid administration and discontinuation of furosemide * He appears euvolemic on exam today * Would discharge on maintenance dose of furosemide 40mg daily * BMP in one week (3) Asthma exacerbation in COPD: Code(s): J44.1 - Chronic obstructive pulmonary disease with (acute) exacerbation Status: Acute Assessment and Plan: Improving with steroids. Management per hospitalist Subjective Date/time seen: 01/07/25 09:05 Interval history: Cardiology follow up for CHF, cardiomyopathy He feels well today. He denies any shortness of breath, orthopnea, palpitations, chest pain. Swelling improved. He is off supplemental oxygen. Review of Systems Review of Systems: All systems reviewed & are unremarkable except as noted in HPI and below Exam Const: General: comfortable, no acute distress, alert and awake Orientation/consciousness: patient oriented x3 HENMT: Head: normal to inspection Eyes: General: appearance normal, both eyes and all related structures Pupils: Equal, round and reactive pupils present Neck: Neck: normal visual inspection, supple and no JVD Carotids: normal carotid upstroke and no bruits Resp: Effort & Inspection: normal respiratory effort Auscultation: clear to auscultation bilaterally and diminished lung sounds Cardio: Rate: regular rate Rhythm: regular rhythm Heart sounds: S1 normal heart sound present, S2 normal heart sound present and no murmurs GI: Auscultation: normal bowel sounds Skin: General skin exam: normal color Neuro: General: patient oriented x3 Cranial nerves: Yes Equal, round and reactive pupils present Extrem: General: no edema Psych: Appearance: grossly normal Mental Status: mental status grossly normal Objective Data Vital Signs Vital Signs: Vital Signs - 24 hr 01/06/25 10:26 01/06/25 12:00 01/06/25 14:13 Temperature Pulse Rate 110 H 106 H 107 H Respiratory Rate 20 Blood Pressure Pulse Oximetry Oxygen Delivery 01/06/25 14:22 01/06/25 16:00 01/06/25 20:00 Temperature 36.5 C Pulse Rate 101 H 104 H Respiratory Rate 20 16 Blood Pressure 104/65 Pulse Oximetry 94 Oxygen Delivery Room Air 01/06/25 20:00 01/06/25 21:00 01/06/25 21:13 Temperature Pulse Rate 102 H 98 Respiratory Rate 20 Blood Pressure Pulse Oximetry 94 Oxygen Delivery Room Air 01/06/25 21:13 01/07/25 00:00 01/07/25 00:00 Temperature 36.4 C L Pulse Rate 99 109 H 103 H Respiratory Rate 20 20 Blood Pressure 110/71 Pulse Oximetry 94 Oxygen Delivery 01/07/25 02:58 01/07/25 03:05 01/07/25 04:00 Temperature Pulse Rate 102 H 100 100 Respiratory Rate 20 20 Blood Pressure Pulse Oximetry Oxygen Delivery 01/07/25 06:44 Temperature 36.7 C Pulse Rate 99 Respiratory Rate 20 Blood Pressure 112/71 Pulse Oximetry 95 Oxygen Delivery Intake/Output Intake/Output: Intake & Output 01/04/25 01/05/25 01/06/25 01/07/25 23:59 23:59 23:59 23:59 Intake Total 1700 2180 2220 750 Output Total 1650 Balance 50 2180 2220 750 Meds/Results Medications: Active Medications Generic Name Dose Route Start Last Admin Trade Name Freq PRN Reason Stop Dose Admin Acetaminophen 650 mg 01/01/25 10:47 Acetaminophen 325 Mg Tablet PO Q4H PRN Mild Pain (1-3) or Fever Albuterol/Ipratropium 3 ml 01/01/25 14:00 01/07/25 02:57 Ipratropium 0.5 Mg/Albuterol Sulfate 2.5 Mg Ampul.Neb 3 Ml INHALATION 3 ml Q6HRT SILVINO Administration Enoxaparin Sodium 40 mg 01/02/25 09:00 01/06/25 10:01 Enoxaparin 40 Mg/0.4 Ml Syringe SUB-Q 40 mg DAILY SILVINO Administration Metoprolol Succinate 12.5 mg 01/05/25 09:00 01/06/25 10:26 Metoprolol Succinate Ext Rel 12.5 Mg Tabcr PO 12.5 mg QAM SILVINO Administration Ondansetron HCl 4 mg 01/01/25 10:47 Ondansetron Inj 4 Mg/2 Ml Vial IV PUSH Q4H PRN Nausea Prednisone 30 mg 01/04/25 08:00 01/06/25 10:01 Prednisone 10 Mg Tablet PO 30 mg DAILY@0800 SILVINO Administration Sacubitril/Valsartan 1 tab 01/04/25 21:00 01/06/25 20:40 Sacubitril/Valsartan 24-26 Mg Tablet PO 1 tab Q12HR SILVINO Administration Fluticasone/Salmeterol 2 puff 01/01/25 20:00 01/06/25 21:00 Fluticasone/Salmeterol 45-21 Mcg Inhaler 1 Puff INHALATION 2 puff Q12HRT SILVINO Administration Radiology Results: ITS Impressions Chest CTA 01/01/25 19:30 IMPRESSION: No pulmonary embolus. No aortic dissection. Gastric distention and gastric contents. Air opacified bowel within the soft tissues of the anterior abdominal wall, incompletely evaluated on the current study. Chest X-Ray 01/05/25 10:37 IMPRESSION: 1. Severe emphysema.
[2025-01-07] MEDS: SACUBITRIL/VALSARTAN 24-26 MG TABLET 1 TAB PO (09:07)
[2025-01-07] MEDS: predniSONE 10 MG TABLET 30 MG PO (09:07)
[2025-01-07] MEDS: METOPROLOL SUCCINATE EXT REL 12.5 MG TABCR PO (09:07)
[2025-01-07] MEDS: ENOXAPARIN 40 MG/0.4 ML SYRINGE SUB-Q (09:08)
--- NOTE | 2025-01-07 10:49 | PM.DS ---
DS: Admitting Diagnosis Discharge Date 01/07/25 Admitting Diagnosis SOB DS: Discharge Diagnosis Discharge Diagnosis (1) Cardiomyopathy: Code(s): I42.9 - Cardiomyopathy, unspecified Status: Acute (2) Asthma exacerbation in COPD: Code(s): J44.1 - Chronic obstructive pulmonary disease with (acute) exacerbation Status: Acute DS: Summary Hospital Course Hospital Course: 54-year-old male no significant past medical history presented to the ER on account of shortness of breath and a cough. Patient reported he has been having sore throat the past 10 days associated with cough however his symptoms improved and then worsened in the past 4 days with shortness of with a cough productive of yellowish sputum. He also noted leg swelling the past 3 days. Denies any chest no fever no vomiting abdominal pain no diarrhea no dysuria no focal symptoms. No lightheadedness or loss of consciousness. Er evaluation notable for temperature 97.6?, heart rate 1 1 7, respiratory 26, saturation 100% on 2 L oxygen, blood pressure 151/113. CXR no acute changes, abg 7.326/54.2/63.2/27.7, Flu, RSV and COvid negative. EKG showed ST, no acute St-T changes Patient given I V steroid prior to admission prior to admission Patient was managed for possible COPD with bronchodilators and Steroid, was initially requiring supplemental oxygen and today he is on room air. Patient is a smoker and has not been diagnosed officially of COPD thus he is referred to pulmonology in 2--4 days for PFT. Discharged on bronchodilators and tapering prednisone. Also daignosed of systolic heart failure with EF 30-35%, he was offered lifevest by cardioogy which he refused. Tolerated MEtoprolol, Entresto and Spironolactone, thus was discharged on those meds along with Lasix 40mg daily He will continue follow up with cardiology as instructed. Counseled against tobacco smoking. F/u with PCP in 3-5 days and other follow up as noted above Time Spent with Patient Time attestation: Total time spent providing and/or coordinating discharge services: Discharge Plan Discharge Attending physician on discharge: Rufina Graf Consulting providers: Eliseo Santiago Discharging Clinician: Rufina Graf Anticipated Discharge Date/Time: 01/07/25 10:41 Patient Disposition: Home, Self-Care Activity: as tolerated Diet: heart healthy Patient Instructions: Antibiotic Form, How to Stop Smoking (DC), Pain Management (DC) Patient Language: Kinyarwanda Stand Alone Forms: General Discharge Information Follow-up/Referrals: Elsa Isaac APN-C [Advanced Practice Nurse] - (01/23/25 at 9:00. Arrive at 8:45) Bin,MD Jason [Primary Care Provider] - (F/u with PCP in 3-5 days ) Jaxson Abel MD [Physician] - (Referral in 2-4 weeks) Discharge Medications: New sacubitril-valsartan [Entresto] 24-26 mg Tablet 1 tablet PO Q12HR 30 Days Qty: 60 1RF metoprolol succinate [Toprol XL] 25 mg Tablet Extended Release 24 Hr 25 mg PO QAM 30 Days Qty: 30 1RF furosemide [Lasix] 40 mg tablet 40 mg PO DAILY 30 Days Qty: 30 1RF spironolactone 25 mg tablet 12.5 mg PO DAILY 30 Days Qty: 15 0RF Combivent Respimat 20-100 mcg/actuation mist 1 puff inhalation Q4H Qty: 4 1RF prednisone 10 mg tablet 10 mg PO DIRECTED Qty: 10 0RF Rx Instructions: see taper instructions fluticasone propion-salmeterol [Advair HFA] 45-21 mcg/actuation Hfa Aerosol Inhaler 2 puff inhalation Q12HRT 30 Days Qty: 12 1RF spironolactone 25 mg tablet 12.5 mg PO DAILY 30 Days Qty: 15 0RF No Action guaifenesin [Mucinex] 1,200 mg tablet extended release 12hr 1,200 mg PO BID 7 Days Qty: 14 0RF loratadine [Claritin] 10 mg tablet 10 mg PO DAILY Qty: 30 0RF Date of admission: 01/01/25 10:47 Primary Care Provider: BinJason Admitting Provider: Kirit Hwang Attending physician on admission: Kirit Hwang Condition: Stable
--- NOTE | 2025-01-07 12:03 | PCRCNOTE ---
Home O2 was set up prior to d/c with [facility]. Pt no longer needs [facility] O2
--- NOTE | 2025-01-07 12:03 | PCRCNOTE ---
Home O2 no longer needed. Previously set up with [facility] prior to d/c and now doesn't need it.
== END 2025-01-07 11:30 | disposition home or self-care (01) | DRG 190 ==
LOC: ANHED 10:57 → ANH2MED 23:41
PROVIDERS: Admitting Provider Internal Medicine; Emergency Provider Family Medicine; PCP Family Medicine; Visit Provider Internal Medicine
DX: J44.1 Chronic obstructive pulmonary disease with (acute) exacerbation (principal); J96.01 Acute respiratory failure with hypoxia; J96.02 Acute respiratory failure with hypercapnia; I42.9 Cardiomyopathy, unspecified; J43.9 Emphysema, unspecified; E86.0 Dehydration; F17.210 Nicotine dependence, cigarettes, uncomplicated; Z28.21 Immunization not carried out because of patient refusal
CPT/HCPCS: 36415; 36600; 71045; 71275; 80053; 82805; 83605; 83735; 83880; 84484; 85018; 85025; 85610; 85730; 87040; 87637; 93005; 93306; 94618; 94640; 96374; 96375; 99285; A9270; J1120; J1650; J1940; J2919; J7030; J7040; J7512; Q9967

== ENCOUNTER 2025-02-07 00:10 | Day surgery (SDC) | payer OTHER, SELFPAY ==
[2025-02-06 12:35] VITALS: BMI 26.9
[2025-02-07] VITALS (13 sets, daily range): BP systolic 106–125; BP diastolic 68–87; PULSE 88–105; RESP 16–24; TEMP 36.7; O2SAT 93–96
--- OUTSIDE RECORDS SUMMARY | 2025-02-07 00:13 | XMS_ITS | Data Portability ---
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 Advised to call ambulance; but pt declined. Pt wants to drive by himself to [facility] ED. Risks explained. I called [facility] ED and d/w ED MD about pt's symptoms and concerns. Ok to send pt to ED. F/u as per ED MD's recommendatio ns. Not available 01/01/2025 09:37:52 Plan of Treatment Reminders Order Date Submit Date Provider Last Modified By Organization Details Last Modified Time Details Appointments None record ed. Lab None record ed. Referral None record ed. Procedures None record ed. Surgeries None record ed. Imaging None record ed. Medication Orders None record ed. Patient TargetsNo targets recorded. Patient InstructionsNo instructions recorded. Reason for Referral None Reported. Results Created Date Observation Date Name Description Value Unit Range Abnormal Flag Note LastModifiedBy Organization Detail LastModifiedTime 01/01/20 25 01/01/2025 XR, chest , 1 view No observ ation record ed. [email or web address] [address], [address], 01/01/2025 11:29:47 01/01/20 25 01/01/2025 CT, angio gram, chest , w/ contr ast No observ ation record ed. [email or web address] [address], [place], [address], 01/02/2025 09:09:51 01/03/20 25 01/02/2025 trans -thor acic echoc ardio gram (TTE) (PROC ) No observ ation record ed. [address], [place], [address], 01/08/2025 14:53:14 01/05/20 25 01/05/2025 XR, chest No observ ation record ed. [address], [place], [address], 01/08/2025 14:53:35 Result Notes None recorded. Problems Name Problem SNOMED Code Status Onset Date Resolution Date Notes Provider Name and Address Organization Details Recorded Time Tobacco user 877752234 Active Not Available [facility] 3 09:18:17 Ankle joint pain 180534972 Active Not Available [facility] 3 09:18:17 Knee pain Active Not Available [facility] 3 09:18:17 Bronchitis 96800603 Active Not Available [facility] 3 09:18:17 Sinusitis 00980280 Active Not Available [facility] 3 09:18:17 Anxiety 99220780 Active Not Available [facility] 3 09:18:17 Cough 45038386 Active Not Available [facility] 3 09:18:18 Upper respiratory infection 22896257 Active Not Available [facility] 3 09:18:18 Dyspnea on exertion 25482568 Active Not Available [facility] 3 09:18:18 Influenza 9577750 Active Not Available [facility] 3 09:18:18 Stress 26102905 Active Not Available [facility] 3 09:18:18 Posterior rhinorrhea 89054745 Active Not Available [facility] 3 09:18:18 Smoker 86890964 Active Not Available [facility] 3 09:18:18 Gout 67021787 Active Not Available [facility] 3 09:18:18 Tachypnea 137927055 Active 2024 Jason Steward MD [address], [place], [address] , e-volo 09:33:23 Hypoxia 902014237 Active 2024 Jason Steward MD [address], [place], [address] , e-volo 09:33:37 Acute exacerbation of chronic obstructive pulmonary disease 885364425 Active 2024 Jason Steward MD [address], [place], [address] , e-volo 09:33:49 Fatigue 53381169 Active 2024 Jason Steward MD [address], [place], [address] , e-volo 09:33:57 Cigarette smoker 05461428 Active 2024 Jason Steward MD [address], [place], [address] , e-volo 09:34:03 Overweight 690373752 Active 2024 Jason Steward MD [address], [place], [address] , e-volo 09:36:14 Problem Notes None recorded. Procedures Surgical History None recorded. Imaging Results Imaging Date Name Status LastModified by Organization Details LastModified Time 01/01/2025 XR, chest, 1 view completed [address] [place] [address], [address], 01/01/2025 11:29:47 01/01/2025 CT, angiogram, chest, w/ contrast completed [address], [address], 01/02/2025 09:09:51 01/02/2025 trans-thoracic echocardiogram (TTE) (PROC) completed [address], [place], [address], 01/08/2025 14:53:14 01/05/2025 XR, chest completed [place] [address], [place], [address], 01/08/2025 14:53:35 Procedure Notes None recorded. Medical Equipment None Reported. [...] base)/3 mL nebulizatio n soln 03/03 completed [facility]#: [id number] Not Available Not Available [...] Soluspan 6 mg/mL suspension for injection active nd#: [id number] Not Available Not Available [...] ceftriaxone 500 mg solution for injection active [facility]#: [id number] 01 Not Available Not Available [...] and Address Organization Details Last Updated DateTime 2 27.5 kg/m2 190.5 cm 95 % 95 % 95 /min 98.1 [degF] 10740.3 2 g 128 mm[Hg] 84 mm[Hg] Not Available [facility] 3 09:13:38 Date Recorded Body height Body mass index (BMI) Body weight Body temperature Oxygen saturation Oxygen saturation in Arterial blood by Pulse oximetry Heart rate Systolic blood pressure Diastolic blood pressure Provider Name and Address Organization Details Last Updated DateTime 5 190.5 cm 28.3 kg/m2 469896. 98 g 97.4 [degF] 85 % 85 % 116 /min 150 mm[Hg] 110 mm[Hg] Priti Perez RN [place] [employer] [facility] 5 09:13:08 Social History Question Answer Notes LastModified by Organizat ion Details LastModified Time Tobacco Smoking Status Current Every Day Smoker Not Available [facility] 01/26/2023 09:12:54 Do You Have An Advance Directive? No [id number] Information not available 01/26/2023 What Is Your Level Of Alcohol Consumption? Occasional [id number] Information not available 01/26/2023 In The 14 Days Before Symptom Onset, Have You Had Close Contact With A Laboratory-confir med COVID-19 While That Case Was Ill? No [id number] Information not available 01/26/2023 In The 14 Days Before Symptom Onset, Have You Had Close Contact With A Person Who Is Under Investigation For COVID-19 While That Person Was Ill? No [id number] Information not available 01/26/2023 What Type Of Diet Are You Following? REGULAR [id number] Information not available 01/26/2023 What Is The Highest Grade Or Level Of School You Have Completed Or The Highest Degree You Have Received? 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 No [id number] Information not available 01/26/2023 What Is Your Relationship Status? Single [id number] Information not available 01/26/2023 How Much Tobacco Do You Smoke? 0.5 PPD [id number] 6669 Information not available 01/26/2023 Have You Recently Traveled Abroad? No [id number] Information not available 01/26/2023 Are You Currently In School? No [id number] Information not available 01/26/2023 Sex: Unknown Functional Status Question Answer Note LastModified by Organizat ion Details LastModified Time What is your exercise level? Moderate [id number] Information not available 01/26/2023 Mental Status None recorded. Family History Relationship Description Onset Age of this Age Resolved Age Notes LastModified by Organization Details LastModified Time Father No current problems or disability [id number] Not available 01/26/2023 09:13:20 Mother No current problems or disability [id number] Not available 01/26/2023 09:13:20 Medical History No medical history recorded. Past Encounters Encounter ID Performer Location Encounter Start Date Encounter Closed Date Diagnosis/Indication Diagnosis SNOMED-CT Code Diagnosis ICD10 Code Diagnosis Note [id number] [facility] [address] [place] [address] 11/11/2022 00:00:00 11/11/2022 16:45:58 [id number] Jason Steward MD [facility] [address] [place] [address] 01/01/2025 09:01:18 01/01/2025 09:17:09 Dyspnea on exertion 17324355 R06.09 Tachypnea 958595955 R06. 82 Hypoxia 968479312 R09.02 Acute exac erbation of chronic obstructive pulmonary disease 801613421 J44.1 Fatigue 90770804 R53.83 Cigarette smoker 8222192 7 F17.210 Overweight 783530318 E66 .3 Health Concerns Section Related Observation LastModified by Organization Detai ls LastModified Time None Recorded Concern Status LastModified by Organization Details LastModified Time None Recorded Advance Directives Directive N: Payers Encounter Date Sequence Insurance Name Policy Number Policy Nunes Covered Member ID Nunes Member ID Guarantor Name 01/01/2025 1 [facility] [id number] Omar Hines [id number] Omar Hines Notes Date Note Type Note [...] Last visit in 11/18. Jason Steward MD [address] [place] [address], [place], [address], [facility] [employer] 01/01/2025 09:38:00
[2025-02-07 09:09] LABS: Basophils Percent Auto 0.4 % (0.2-1.2); Eosinophils Absolute Auto 0.2 K/mm3 (0-0.3); Eosinophils Percent Auto 2.8 % (0-4.4); Hematocrit 47.2 % (42.0-52.0); Hemoglobin 15.1 g/dL (14.0-18.0); Immature Granulocyte Absolute 0.02 K/mm3 (0.00-0.031); Immature Granulocyte Percent A 0.3 % (0-0.5); Lymphocytes Absolute Auto 1.37 K/mm3 (0.9-3.2); Lymphocytes Percent Auto 17.4 % (18.3-44.2); Mean Corpuscular Volume 90.6 fl (80-100); Mean Platelet Volume 9.5 fl (7.4-10.4); Monocytes Absolute Auto 0.8 K/mm3 (0.1-0.6); Monocytes Percent Auto 9.5 % (2.6-8.5); Neutrophils Absolute Auto 5.5 K/mm3 (1.3-6.7); Neutrophils Percent Auto 69.6 % (45.5-73.1); Platelet Count Result 242 k/mm3 (150-375); Red Blood Count 5.21 M/mm3 (4.6-6.20); Red Cell Distribution Width 14.8 % (11.5-14.5); White Blood Count 7.9 K/mm3 (4.5-10.0)
[2025-02-07 09:21] LABS: Anion Gap 7 mmol/L (4-12); Blood Urea Nitrogen 17 mg/dL (9-20); Calcium 9.1 mg/dL (8.4-10.2); Carbon Dioxide 30 mmol/L (22-30); Chloride 102 mmol/L (98-107); Estimated CRCL calculation 105 ml/min; Estimated Glomerular Filt Rate > 60; Glucose 107 mg/dL (65-110); Potassium 4.7 mmol/L (3.4-5.0); Sodium 139 mmol/L (137-145)
--- NOTE | 2025-02-07 12:19 | P.PCNCC_ITS ---
Cardiac Cath Procedure Note Date of procedure:: 02/07/25 Performing physician:: CATHETERIZATION LABORATORY REPORT Procedure Date: 02/07/2025 Referring Physician: Elsa Isaac NP Anesthesia: Versed and Fentanyl were ordered and given in my presence at 1037, procedure ended at 1047. Supervision of nurse, Amie Vegas monitored moderate sedation with 2mg Versed and 50mcg Fentanyl was provided for 10 minutes. Pre-op Diagnosis: Chronic systolic heart failure Post-op Diagnosis: Chronic systolic heart failure Procedure(s): Left heart catheterization with coronary angiography Access Site: Right radial artery Brief History and Clinical Indications: 54-year-old man with new onset systolic heart failure is referred for coronary angiography to define his coronary anatomy. All risks, benefits and alternatives to left heart catheterization with or without percutaneous coronary intervention was discussed at length with the patient. Risk of complications including but not limited to bleeding, infection, arrhythmia, stroke, worsening kidney function, blood loss, groin hematoma, limb loss, emergency coronary artery bypass grafting, and even were discussed with the patient and all questions were answered. The patient understood and wished to proceed. 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 Findings: LEFT HEART CATHETERIZATION FINDINGS: 1. Left main: The left main coronary artery is widely patent without any significant obstructive disease. 2. Left anterior descending: The LAD and the diagonal branches have luminal irregularities. 3. Left circumflex: The left circumflex artery is a large dominant vessel that gives off 1 main OM branch prior to giving of 2 significant posterior lateral branches and a left PDA vessel. The entire system itself has luminal irregularities. 4. Right coronary artery: The RCA is a moderate size non dominant vessel that is normal. 5. Left ventricle: A. End-diastolic pressure 13 mmHg. B. LV gram deferred. C. No significant gradient across aortic valve on catheter pullback. 6. Opening AO pressure 113/79 and closing AO pressure 110/70 Description of Procedure: Informed consent signed and placed in the chart. Patient transferred to clinical laboratory director room. Prepped and draped in usual sterile fashion. 2% lidocaine injected subcutaneously in right wrist area. 22-gauge venipuncture catheter used to access the right radial artery with the Seldinger technique. 6-FR slender sheath placed in right radial artery. Nitroglycerin 200mcg, Verapamil 2.5mg, and Heparin 5000U was given intraarterial through the sheath. J wire advanced under fluoroscopy 5F TIG diagnostic catheter engaged Left Main Coronary Artery. 5F TIG diagnostic catheter engaged Right Coronary Artery Multiple orthogonal angiogram obtained and reviewed 5F Pigtail catheter crossed aortic valve to obtain LVEDP, LV angiogram deferred. Hemostasis was achieved by application of TR band. Assessment: Nonischemic cardiomyopathy Post Operative Condition: Stable No significant blood loss Disposition: Home Plan: Continue guideline directed medical therapy Aggressive risk-factor modification Goal is to maintain euvolemia and improved quality of life Eliseo Santiago Interventional Cardiology
== END 2025-02-07 14:10 | disposition home or self-care (01) ==
PROVIDERS: PCP Family Medicine; Visit Provider Internal Medicine
PROC: 4A023N7 Measurement of Cardiac Sampling and Pressure, Left Heart, Percutaneous Approach (ICD-10-PCS; CPT 93452; principal; 2025-02-07 10:00)
DX: I50.22 Chronic systolic (congestive) heart failure (principal); I42.8 Other cardiomyopathies; J43.9 Emphysema, unspecified; Z79.51 Long term (current) use of inhaled steroids; Z79.52 Long term (current) use of systemic steroids
CPT/HCPCS: 36415; 80048; 85025; 93458; C1769; C1887; C1894; J1644; J2003; J2250; J2305; J3010; J7040

== ENCOUNTER 2025-09-23 18:29 | Emergency (ER) | payer OTHER, SELFPAY ==
--- NOTE | ~2025-09-23 | XR_ITS ---
EXAMINATION: XR chest 2V DATE: 09/23/2025 18:57 INDICATION: COPD presenting with shortness of breath and cough TECHNIQUE: PA and lateral views of the chest were obtained. COMPARISON: Chest radiograph dated 01/05/2025 FINDINGS: Hyperexpansion lungs, flattening of the diaphragm and increased retrosternal clear space consistent with emphysema. A few bilateral calcified pulmonary nodules consistent with old granulomatous disease. Scattered linear and curvilinear opacities consistent with atelectasis/scarring most prominent in the right midlung zone.. Subtle patchy airspace opacity at the medial right lower lung zone appears to represent peripheral round atelectasis/scarring on prior CT. Very thin internal linear opacity project over the right midlung zone suggestive of a carlos from an IVC filter which can be seen projecting over the right side of the upper lumbar spine. Nipple shadows project over the bilateral lower lung zones. No pleural effusion or pneumothorax. Heart size is normal. IMPRESSION: 1. Severe emphysema with scattered atelectasis/scarring. Reviewed, dictated and finalized at location A.
[2025-09-23 18:32] VITALS: BP 126/93; PULSE 113; RESP 18; TEMP 36.1; O2SAT 95
--- NOTE | 2025-09-23 18:50 | ED_ITS ---
HPI - General Adult General Chief complaint: Upper Respiratory Infection Stated complaint: Upper Respiratory Infection Source: patient Mode of arrival: ambulatory Limitations: no limitations History of Present Illness HPI narrative: Patient presents for evaluation of respiratory symptoms for last 2 days. He reports chest congestion, cough and mild shortness of breath. He has an underlying history of COPD. He ran out of his inhalers. He states for the most part he quit smoking. 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 It sounds like his heart function has improved and he was told that viral illness could have contributed to his health status. He states one of his coworkers is sick with sinus symptoms. He states he had a temperature of 100 F and chills. No nausea, vomiting or diarrhea. Related Data Allergies Allergy/AdvReac Type Severity Reaction Status Date / Time codeine AdvReac Intermediate light Verified 09/23/25 18:31 headed, dizzy, sweating Review of Systems Review of Systems: CONSTITUTIONAL: reports fever and chills. EYES: Denies visual changes, redness, or discharge. ENT: Denies rhinorrhea, congestion, sore throat, or otalgia. CARDIOVASCULAR: Denies chest pain, palpitations, or edema. RESPIRATORY: Reports cough and shortness of breath GASTROINTESTINAL: Denies abdominal pain, nausea, vomiting, or diarrhea. GENITOURINARY: Denies dysuria or hematuria. SKIN: Denies rash or itching. MUSCULOSKELETAL: Denies back pain, joint pain, or myalgia. NEUROLOGIC: Denies headache, numbness, dizziness, or weakness. PSYCHIATRIC: Denies anxiety or depression. [facility] Past Medical History Medical History (Updated 09/23/25 @ 19:19 by Justin Judd APRN, [facility]) Cardiomyopathy Asthma exacerbation in COPD Surgical History Surgical History No pertinent past surgical history Family History Family History Mother Cervical cancer Father Heart failure Social History Social History Smoking packs per day: 1 Smoking cigarettes per day: 20.0 Years smoked: 28 Smoking pack-years: 28.00 Smoking status: Former smoker Tobacco type: cigarettes Smokeless tobacco user: chewing tobacco Alcohol intake: former Alcohol use details: nothing for 2 years Substance use: never Substance use type: does not use Do You Feel Safe in your Home?: Yes Lack of Transportation: No Lack of Food: Never True Current Housing: I Have Housing Concerned About Future Housing: No Difficulty Paying Gas/Electric Bills: No Difficulty Paying for Meds: No Currently Unemployed: No Education: Associate Degree Difficulty w/ Childcare or Family Care: No Living arrangements: with family Additional living arrangements comments: minor daughter Spiritual care concerns: No Exam Narrative: GENERAL: Well-appearing, well-nourished, and in no acute distress. HEAD: Normocephalic, atraumatic. EYES: PERRLA and EOMI. ENT: Nares clear, no rhinorrhea or epistaxis. Mucous membranes moist. Oropharynx without tonsillar hypertrophy exudate or other lesions. Bilateral TMs pearly hylton nonbulging NECK: Supple. No adenopathy or masses. No carotid bruits or JVD CHEST: Clear to auscultation. No respiratory distress. No wheezes rales or rhonchi HEART: Regular rate and rhythm. No murmur heard. Normal peripheral pulses. ABDOMEN: Soft, nontender, nondistended, normal active bowel sounds. EXTREMITIES: Normal range of motion. No edema. SKIN: Warm, dry, no rash. NEURO: No focal deficits. Alert and oriented x3. PSYCH: Normal mood and affect. Course Course Emergency Course: This is a 55-year-old male who presented for evaluation of respiratory symptoms. COVID and influenza were negative. Chest x-ray without evidence of pneumonia. Will discharge with prednisone refill his prescriptions. He will be given a referral to see pulmonology. He should follow-up with a primary care provider. Go to the ER for difficulty breathing. Heart rate improved on my evaluation. Patient in agreement with plan of care Level of Care: Express Care Visit Vital Signs Vital signs: Vital Signs Temperature 36.1 C L 09/23/25 18:32 Pulse Rate 113 H 09/23/25 18:32 Respiratory Rate 18 09/23/25 18:32 Blood Pressure 126/93 H 09/23/25 18:32 Pulse Oximetry 95 09/23/25 18:32 Oxygen Delivery Room Air 10/27/25 18:32 Temperature 36.1 C L 09/23/25 18:32 Pulse Rate 113 H 09/23/25 18:32 Respiratory Rate 18 09/23/25 18:32 Blood Pressure 126/93 H 09/23/25 18:32 Pulse Oximetry 95 09/23/25 18:32 Oxygen Delivery Room Air 09/23/25 18:32 Medical Decision Making Vital Signs Vital Signs: Vital Signs Temperature 36.1 C L 09/23/25 18:32 Pulse Rate 113 H 09/23/25 18:32 Respiratory Rate 18 09/23/25 18:32 Blood Pressure 126/93 H 09/23/25 18:32 Pulse Oximetry 95 09/23/25 18:32 Oxygen Delivery Room Air 09/23/25 18:32 Temperature 36.1 C L 09/23/25 18:32 Pulse Rate 113 H 09/23/25 18:32 Respiratory Rate 18 09/23/25 18:32 Blood Pressure 126/93 H 09/23/25 18:32 Pulse Oximetry 95 09/23/25 18:32 Oxygen Delivery Room Air 09/23/25 18:32 Lab Data Labs: Lab Results 09/23/25 Range/Units 18:53 POC Influenza A Ag Negative (Negative) POC Influenza B Ag Negative (Negative) POC SARS CoV-2 Ag Negative (Negative) Imaging Data Radiologist's impression: EXAMINATION: XR chest 2V DATE: 09/23/2025 18:57 INDICATION: COPD presenting with shortness of breath and cough TECHNIQUE: PA and lateral views of the chest were obtained. COMPARISON: Chest radiograph dated 01/05/2025 FINDINGS: Hyperexpansion lungs, flattening of the diaphragm and increased retrosternal clear space consistent with emphysema. A few bilateral calcified pulmonary nodules consistent with old granulomatous disease. Scattered linear and curvilinear opacities consistent with atelectasis/scarring most prominent in the right midlung zone.. Subtle patchy airspace opacity at the medial right lower lung zone appears to represent peripheral round atelectasis/scarring on prior CT. Very thin internal linear opacity project over the right midlung zone suggestive of a carlos from an IVC filter which can be seen projecting over the right side of the upper lumbar spine. Nipple shadows project over the bilateral lower lung zones. No pleural effusion or pneumothorax. Heart size is normal. IMPRESSION: 1. Severe emphysema with scattered atelectasis/scarring. Discharge Plan Discharge Clinical Impression: COPD exacerbation Patient Disposition: Home Condition: Stable Instructions: Antibiotic Form, COPD (Chronic Obstructive Pulmonary Disease) (DC) Patient Language: Guamanian Prescriptions: New prednisone 50 mg tablet 50 mg PO DAILY Qty: 5 0RF fluticasone propion-salmeterol [Advair HFA] 45-21 mcg/actuation HFA aerosol inhaler 2 puff inhalation BID Qty: 12 0RF Combivent Respimat 20-100 mcg/actuation mist 1 puff inhalation QID Qty: 4 0RF Proair Digihaler 90 mcg/actuation aero powdr breath act w/sensor 2 inh inhalation Q6H Qty: 1 0RF No Action guaifenesin [Mucinex] 1,200 mg tablet extended release 12hr 1,200 mg PO BID 7 Days Qty: 14 0RF Patient Comments: As Needed for allergies loratadine [Claritin] 10 mg tablet 10 mg PO DAILY Qty: 30 0RF Patient Comments: As Needed for Seasonal Allergies. Pt takes Alavert which is Loratadine Jardiance 10 mg tablet 10 mg PO DAILY Qty: 90 3RF spironolactone 25 mg tablet 12.5 mg PO DAILY 90 Days Qty: 45 3RF metoprolol succinate [Toprol XL] 25 mg Tablet Extended Release 24 Hr 25 mg PO QAM 90 Days Qty: 90 3RF sacubitril-valsartan [Entresto] 24-26 mg Tablet 1 tablet PO Q12HR 90 Days Qty: 180 3RF fluticasone propion-salmeterol [Advair HFA] 45-21 mcg/actuation Hfa Aerosol Inhaler 2 puff inhalation Q12HRT 30 Days Qty: 12 1RF furosemide [Lasix] 40 mg tablet 40 mg PO DAILY 30 Days Qty: 30 1RF Combivent Respimat 20-100 mcg/actuation mist 1 puff inhalation Q4H Qty: 4 1RF Follow-up/Referrals: Jaxson Abel MD [Physician, Pulmonology] Time of Disposition: 19:19
[2025-09-23 19:10] LABS: EDCOVIDSCREEN Negative (Negative); EDINFLUASCREEN Negative (Negative); EDINFLUBSCREEN Negative (Negative)
== END 2025-09-23 19:24 | disposition home or self-care (01) ==
PROVIDERS: Emergency Provider Nurse Practitioner
DX: J44.1 Chronic obstructive pulmonary disease with (acute) exacerbation (principal); Z20.822 Contact with and (suspected) exposure to COVID-19; I42.9 Cardiomyopathy, unspecified
CPT/HCPCS: 71046; 87426; 87804; 99213; G0463

== ENCOUNTER 2025-09-26 08:22 | Inpatient (IN) | payer OTHER, SELFPAY ==
[2025-09-26] VITALS (33 sets, daily range): BP systolic 104–143; BP diastolic 74–103; PULSE 95–125; RESP 16–41; TEMP 36.2–36.7; O2SAT 30–100; BMI 24.9
--- NOTE | ~2025-09-26 | XR_ITS ---
XR chest 1V portable 09/27/2025 05:40 Indication: COPD. Cardiomyopathy. Procedure: AP portable chest Comparison: 09/26/2025 Findings: Borderline heart size. Bilateral airspace disease with curly B lines, most likely edema. Pneumonia less favored. Small pleural effusions. The lungs are hyperinflated which is consistent with, but not diagnostic of chronic obstructive pulmonary disease. Impression: 1: Borderline heart size with probable mild interstitial edema. Atypical pneumonia less favored. Reviewed, dictated and finalized at location B. Impression: 1: Borderline heart size with probable mild interstitial edema. Atypical pneumo gilbert less favored.
--- NOTE | ~2025-09-26 | XR_ITS ---
Examination: XR chest 2V Clinical History: pneumonia Comparison: 09/27/2025 Technique: PA and Lateral Findings: Cardiomediastinal silhouette normal size and configuration. Emphysema with hyperinflation. Improving but persistent diffuse interstitial changes. No acute bony abnormality. IMPRESSION: 1. Improving but persistent interstitial pulmonary edema and/or pneumonitis. Reviewed, dictated and finalized at location R. GER VOICE
--- NOTE | ~2025-09-26 | XR_ITS ---
EXAMINATION: XR chest 1V portable COMPARISON: No comparisons available. HISTORY: sob FINDINGS: COPD changes with scattered bilateral infiltrates. No pneumothorax. Heart is normal size. Mediastinal and hilar contours are within normal limits. Bony thorax no acute abnormality. Miscellaneous: None Impression: Bilateral pneumonia Reviewed, dictated and finalized at location P. Impression: Bilateral pneumonia
--- NOTE | 2025-09-26 08:26 | ECG_ITS ---
Test Date: 2025-09-26 08:26:33 Measurements Intervals [place] Rate: 123 P: 67 DC: 158 QRS: 248 QRSD: 116 T: 67 QT: 304 QTc: 436 Interpretive Statements SINUS TACHYCARDIA WITH FREQUENT VENTRICULAR PREMATURE COMPLEXES RIGHT AXIS DEVIATION INCOMPLETE RIGHT BUNDLE BRANCH BLOCK INFERIOR INFARCT, AGE INDETERMINATE BASELINE ARTIFACT- I, II, III, AVR, AVL, V1-V6 ABNORMAL ECG Compared to ECG 01/05/2025 11:23:18 HEART RATE HAS INCREASED Electronically Signed On 09-26-2025 08:45:27 CDT by Dwain Pelayo D.O.
[2025-09-26] MEDS: ALBUTEROL SULFATE NEB 2.5 MG/3 ML INH 10 MG INHALATION (08:45)
[2025-09-26] MEDS: IPRATROPIUM BR 0.02% INH SOLN 0.5 MG/2.5 ML VIAL 1 MG INHALATION (08:46)
[2025-09-26 08:50] LABS: Hematocrit 50.6 % (42.0-52.0); Hemoglobin 15.8 g/dL (14.0-18.0); Immature Granulocyte Percent A 0.3 % (0-0.5); Lymphocytes Absolute Auto 0.73 K/mm3 (0.9-3.2); Mean Corpuscular HGB Conc 31.2 g/dl (32-36); Mean Corpuscular Hemoglobin 29.8 pg (26-34); Mean Corpuscular Volume 95.5 fl (80-100); Nucleated Red Blood Cells Absolute Auto 0.000 K/mm3 (0.0-0.012); Nucleated Red Blood Cells Perc 0.0 % (0.0-0.2); Platelet Count Result 295 k/mm3 (150-375); Red Blood Count 5.30 M/mm3 (4.6-6.20); White Blood Count 16.6 K/mm3 (4.5-10.0)
[2025-09-26 08:57] LABS: Alveolar/Arterial O2 Gradient 127.6 mmHg; Fractional Inspired Oxygen 40 %; HCO3 ABG 26.2 mEq/l (22.0-26.0); Oxygen Content ABG 20.2 %vol (16.0-22.0); Oxygen Saturation ABG 93.6 % (95.0-100.0); PO2 ABG 82.3 mmHg (80.0-100.0); PO2 FiO2 Ratio Arterial Blood 2.06 %
[2025-09-26 09:00] LABS: Liters per Minute 5.0 LPM; Modified Allen's Test Pass; PCO2 ABG 65.5 mmHg (35.0-45.0); Site Drawn LEFT RADIAL
[2025-09-26 09:03] LABS: Alanine Aminotransferase 22 U/L (6-50); Albumin Level 4.2 g/dL (3.5-5.1); Alkaline Phosphatase 106 U/L (38-126); Anion Gap 7 mmol/L (4-12); Aspartate Amino Transferase 30 U/L (17-59); Bilirubin,Total 0.4 mg/dL (0.2-1.3); Blood Urea Nitrogen 25 mg/dL (9-20); Calcium 9.4 mg/dL (8.4-10.2); Carbon Dioxide 32 mmol/L (22-30); Chloride 96 mmol/L (98-107); Estimated CRCL calculation 61 ml/min; Estimated Glomerular Filt Rate > 60; Glucose 153 mg/dL (65-110); Potassium 4.5 mmol/L (3.4-5.0); Sodium 135 mmol/L (137-145); Total Protein 7.9 g/dL (6.3-8.2)
--- OUTSIDE RECORDS SUMMARY | 2025-09-26 09:07 | XMS_ITS | Clinical Summary ---
Author Organization [facility] [address] [facility] [address] Address [address] [place] [address] Care Team Providers Care Stars Specialist Name Role Phone Jason Steward MD Primary Care Provider [phone] Allergies Active Allergy Reactions Criticality Noted Date Comments Codeine Sweating Low 01/23/2025 Medications metoprolol XL (TOPROL-XL) 25 mg extended release tablet Take 1 tablet (25 mg total) by mouth every morning 5 Active Entresto 24-26 mg tablet Take 1 tablet by mouth every 12 (twelve) hours 5 Active Jardiance 10 mg tablet Take 1 tablet (10 mg total) by mouth daily 5 Active furosemide (LASIX) 40 mg tablet Take 1 tablet (40 mg total) by mouth once a week 5 Active Advair HFA 45-21 mcg/actuation inhaler Inhale 2 puffs 2 (two) times a day 1 each 3 5 Active Additional Information Patient not taking.Reported on 09/24/2025 Combivent Respimat 20-100 mcg/actuation inhaler Inhale 1 puff 4 (four) times a day 1 each 3 5 Active Additional Information Patient not taking.Reported on 09/24/2025 Active Problems Problem Noted Date Diagnosed Date Chronic systolic heart failure 09/24/2025 Chronic obstructive pulmonary disease, unspecifi ed 03/26/2025 Encounters Date Type Department Care Team Description 09/24/2025 8:45 AM CDT Office Visit [facility] Cardiology [address] [place] [address] Eliseo Santiago MD Chronic systolic heart failure (HCC) (Primary Dx) from Last 3 Months Surgical History Surgery Date Site/Laterality Comments HERNIA REPAIR N/A Medical History Medical History Date Comments CHF (congestive heart failure) (HCC) COPD (chronic obstructive pulmonary disease) Family History Medical History Relation Name Comments Hypertension Brother Heart attack Father Cancer Mother Relation Name Status Comments Brother Alive Father Mother Sister 1 Alive Sister 2 Alive Sister 3 Alive Sister 4 Alive Social History Tobacco Use Types Packs/Day Years Used Date Smoking Tobacco: Former Cigarettes Sex and Gender Information Value Date Recorded Sex Assigned at Not on file 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 Gender Identity Not on file Sexual Orientation Not on file Obstetrics History Last Filed Vital Signs Vital Sign Reading Time Taken Comments Blood Pressure 82/58 09/24/2025 8:43 AM CDT Pulse 100 09/24/2025 8:43 AM CDT Temperature - - Respiratory Rate - - Oxygen Saturation 90% 09/24/2025 8:43 AM CDT Inhaled Oxygen Concentration - - Weight 92.7 kg (204 lb 4.8 oz) 09/24/2025 8:43 AM CDT Height 190.5 cm (6' 3) 09/24/2025 8:43 AM CDT Body Mass Index 25.54 09/24/2025 8:43 AM CDT Plan of Treatment Health Maintenance Due Date Last Done Comments Colon Cancer Screening-Colonoscopy 1969 Depression Screening 1969 Hepatitis C Screening 1969 Prostate Cancer Screening-PSA 1969 DTaP/Tdap/Td Vaccine (1 - Tdap) 1980 Hepatitis B Screening 1987 Regular Well Visit/Exam 18-64 1987 Pneumococcal vaccine <65 (1 of 2 - PCV) 1988 Zoster Vaccine (1 of 2) 2019 Covid-19 Vaccine ( - season) 2025 12/10/2021, 03/08/2021, 02/15/2021 Influenza Vaccine (#1) 2025 09/03/2011 Insurance [facility] [employer] Care Teams Stars Specialist Relationship Specialty Start Date End Date Jason Steward MD [facility] [place] [address] PCP - General Family Medicine 01/23/25
--- OUTSIDE RECORDS SUMMARY | 2025-09-26 09:07 | XMS_ITS | Encounter Summary ---
Author Organization [facility] Healthcare Address [address] [place] [address] Care Team Providers Care Tavern Keeper Name Role Phone Elsa Isaac NP Primary Care Provider + [phone] Jason Steward MD Primary Care Provider [phone] Jason Steward MD Primary Care Provider [phone] Encounter Details Date Type Department Care Team (Late st Contact Info) Description 01/05/2025 Orders Only 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 Gender Identity Not on file Sexual Orientation Not on file documented as of this encounter Plan of Treatment Not on file documented as of this encounter Procedures Procedure Name Priority Date/Time Associated Diagnosis Comments SCAN - RADIOLOGY/IMAGING 01/05/2025 documented in this encounter Results * SCAN - RADIOLOGY/IMAGING (01/05/2025) Anatomical Region Laterality Modality Other us Provider Scanning Final Result documented in this encounter Visit Diagnoses Not on filedocumented in this encounter Care Teams Tavern Keeper Relationship Specialty Start Date End Date Elsa Isaac NP [address] [facility] [address] [place] [address] PCP - General Cardiovascular Disease 01/07/25 5 Jason Steward MD [address] [place] [address] PCP - General Family Medicine 01/01/25 01/06/25 Jason Steward MD [address] [facility] [place] [address] PCP - General Family Medicine 01/23/25 documented as of this encounter
--- OUTSIDE RECORDS SUMMARY | 2025-09-26 09:07 | XMS_ITS | Encounter Summary ---
Author Organization [facility] Healthcare Address [address] [place] [address] Care Team Providers Care Lean Consultant Name Role Phone Elsa Isaac NP Primary Care Provider + [phone] Jason Steward MD Primary Care Provider [phone] Jason Steward MD Primary Care Provider [phone] Encounter Details Date Type Department Care Team (Late st Contact Info) Description 01/01/2025 Orders Only [facility] Health Information Management [address] [place] [id number] Scanning, Provider Social History Tobacco Use Types Packs/Day Years Used Date Smoking Tobacco: Never Assessed Sex and Gender Information Value Date Recorded Sex Assigned at Not on file 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 Gender Identity Not on file Sexual Orientation Not on file documented as of this encounter Plan of Treatment Not on file documented as of this encounter Procedures Procedure Name Priority Date/Time Associated Diagnosis Comments SCAN - RADIOLOGY/IMAGING 01/01/2025 documented in this encounter Results * SCAN - RADIOLOGY/IMAGING (01/01/2025) Anatomical Region Laterality Modality Other us Provider Scanning Final Result documented in this encounter Visit Diagnoses Not on filedocumented in this encounter Care Teams Lean Consultant Relationship Specialty Start Date End Date Elsa Isaac NP [address] [facility] [address] [place] [address] PCP - General Cardiovascular Disease 01/07/25 5 Jason Steward MD [address] [place] [address] PCP - General Family Medicine 01/01/25 01/06/25 Jason Steward MD [address] [facility] [place] [address] PCP - General Family Medicine 01/23/25 documented as of this encounter
[2025-09-26 09:13] LABS: NT Pro B Type Natriuretic Pept 1990 pg/mL (19.9-100); Troponin I 0.018 ng/mL (0.000-0.034)
[2025-09-26] MEDS: cefTRIAXone 1 GM in SODIUM CHLORIDE 0.9% IV 50 ML 100 ML IVPB (10:00)
[2025-09-26] MEDS: DOXYCYCLINE IV 100 MG in SODIUM CHLORIDE 0.9% IV 100 ML IVPB (10:59)
--- NOTE | 2025-09-26 11:10 | PC.NURSE ---
Pt asking for water multiple times. EDP Dr. Ariel segura and states pt is NPO due to BiPap.
--- NOTE | 2025-09-26 11:26 | ED_ITS ---
HPI - SOB/Dyspnea General Chief Complaint: Shortness of Breath/Dyspnea Stated Complaint: SOB Time Seen by Provider: 09/26/25 08:26 Source: patient Mode of arrival: EMS Limitations: no limitations History of Present Illness HPI Narrative: 55-year-old with a history of COPD presents to the ER by EMS with the complaints of severe shortness of breath. Patient states that he has been dealing with this for past 1 week has productive cough at times mostly mucoid in nature. He denies having any chest pain. No history of fever or chills for a to his been using his inhalers with minimal relief this morning. MD elicited complaint: shortness of breath and cough Pertinent past history: COPD Onset (ago): week(s) (1) Timing: constant Severity: moderate Exacerbating factors: nothing Relieving factors: oxygen Known history of: COPD Associated symptoms: denies other symptoms Related Data Home oxygen amount: none Allergies Allergy/AdvReac Type Severity Reaction Status Date / Time codeine AdvReac Intermediate light Verified 09/26/25 08:30 headed, dizzy, sweating Review of Systems 2 Review of Systems: All systems reviewed & are unremarkable except as noted in HPI and below Constitutional: Constitutional: Reports no additional constitutional complaints Eyes: Eyes: Reports no additional eye complaints ENT: Reports system reviewed and no additional complaints, except as documented Cardiovascular: Cardiovascular: Reports no additional cardiovascular complaints Respiratory: Respiratory: Reports as per HPI Gastrointestinal: Gastrointestinal: Reports no additional gastrointestinal complaints Musculoskeletal: Musculoskeletal: Reports no additional musculoskeletal complaints [facility] Past Medical History Medical History Cardiomyopathy Asthma exacerbation in COPD Surgical History Surgical History No pertinent past surgical history Family History Family History Mother Cervical cancer Father Heart failure Social History Social History Smoking packs per day: 1 Smoking cigarettes per day: 20.0 Years smoked: 28 Smoking pack-years: 28.00 Smoking status: Former smoker Tobacco type: cigarettes Smokeless tobacco user: chewing tobacco Alcohol intake: former Alcohol use details: nothing for 2 years Substance use: never Substance use type: does not use Do You Feel Safe in your Home?: Yes Lack of Transportation: No Lack of Food: Never True Current Housing: I Have Housing Concerned About Future Housing: No Difficulty Paying Gas/Electric Bills: No Difficulty Paying for Meds: No Currently Unemployed: No Education: Associate Degree Difficulty w/ Childcare or Family Care: No Living arrangements: with family Additional living arrangements comments: minor daughter Spiritual care concerns: No Exam 2 Narrative: GENERAL: Well-appearing, well-nourished, and in no acute distress. HEAD: Normocephalic, atraumatic. EYES: PERRLA and EOMI. ENT: Nares clear, no rhinorrhea or epistaxis. Mucous membranes moist. NECK: Supple. CHEST: Decreased air entry,, bilateral wheeze. HEART: Regular rate and rhythm. No murmur heard. Normal peripheral pulses. ABDOMEN: Soft, nontender, nondistended, normal active bowel sounds. EXTREMITIES: Normal range of motion. No edema. SKIN: Warm, dry, no rash. NEURO: No focal deficits. Alert and oriented x3. PSYCH: Normal mood and affect. Course Course Emergency Course: Patient was hypoxic his ABG showed his in respiratory failure. Placed him on BiPAP. Informed him about the lab work, EKG and chest x-ray findings. Discussed with the hospitalist agreed with admission. Patient feeling on Bi Pap Vital Signs Vital signs: Vital Signs Temperature 36.6 C 09/26/25 08:22 Pulse Rate 125 H 09/26/25 08:22 Respiratory Rate 30 H 09/26/25 08:22 Blood Pressure 133/79 09/26/25 08:22 Pulse Oximetry 79 L 09/26/25 08:22 Oxygen Delivery Room Air 09/26/25 08:22 Temperature 36.6 C 09/26/25 08:22 Pulse Rate 113 H 09/26/25 11:01 Respiratory Rate 27 H 09/26/25 11:01 Blood Pressure 128/92 H 09/26/25 11:01 Pulse Oximetry 99 09/26/25 11:01 Oxygen Delivery BiPAP 09/26/25 09:05 Oxygen Flow Rate 6 09/26/25 08:32 MDM - SOB/Dyspnea MDM Narrative Medical decision making narrative: 55-year-old with a history of COPD presents to ER with a severe shortness of breath with SpO2 in high 70s on exam bilateral decreased breath sounds with mild wheezing will do ABG, and neb treatment and obtain lab work and chest x-ray Differential Diagnosis Differential diagnosis: Likely acute exacerbation of chronic obstructive airways disease, congestive heart failure and community acquired pneumonia Medical Records Attestation: I reviewed the patient's medical records. Lab Data Attestation: I reviewed the patient's lab results. 09/26/25 08:42 09/26/25 08:42 Labs: Lab Results 09/26/25 Range/Units 08:42 WBC 16.6 H (4.5-10.0) K/mm3 RBC 5.30 (4.6-6.20) M/mm3 Hgb 15.8 (14.0-18.0) g/dL Hct 50.6 (42.0-52.0) % MCV 95.5 (80-100) fl MCH 29.8 (26-34) pg MCHC 31.2 L (32-36) g/dl RDW 14.5 (11.5-14.5) % Plt Count 295 (150-375) k/mm3 MPV 9.8 (7.4-10.4) fl Immature Gran % (Auto) 0.3 (0-0.5) % Neut % (Auto) 86.6 H (45.5-73.1) % Lymph % (Auto) 4.4 L (18.3-44.2) % [place] % (Auto) 8.2 (2.6-8.5) % Eos % (Auto) 0.2 (0-4.4) % Baso % (Auto) 0.3 (0.2-1.2) % Lymph # (Auto) 0.73 L (0.9-3.2) K/mm3 [place] # (Auto) 1.4 H (0.1-0.6) K/mm3 Eos # (Auto) 0.0 (0-0.3) K/mm3 Baso # (Auto) 0.1 (0.0-0.1) K/mm3 Abs Immat Gran (auto) 0.05 H (0.00-0.031) K/mm3 Absolute Neuts (auto) 14.4 H (1.3-6.7) K/mm3 Absolute Nucleated RBC 0.000 (0.0-0.012) K/mm3 Nucleated RBC % 0.0 (0.0-0.2) % Sodium 135 L (137-145) mmol/L Potassium 4.5 (3.4-5.0) mmol/L Chloride 96 L (98-107) mmol/L Carbon Dioxide 32 H (22-30) mmol/L Anion Gap 7 (4-12) mmol/L BUN 25 H (9-20) mg/dL Creatinine 0.84 (0.7-1.3) mg/dL Estim Creat Clear Calc 61 ml/min Estimated GFR > 60 (59 - ) Glucose 153 H (65-110) mg/dL Lactic Acid 1.9 (0.7-2.0) mmol/L Calcium 9.4 (8.4-10.2) mg/dL Total Bilirubin 0.4 (0.2-1.3) mg/dL AST 30 (17-59) U/L ALT 22 (6-50) U/L Alkaline Phosphatase 106 (38-126) U/L Troponin I 0.018 (0.000-0.034) ng/mL NT-Pro-B Natriuret Pep 1990 H (19.9-100) pg/mL Total Protein 7.9 (6.3-8.2) g/dL Albumin 4.2 (3.5-5.1) g/dL ABG Data ABG results: 09/26/25 08:45 Puncture Site Left radial ABG pH 7.220 L* ABG pCO2 65.5 H* ABG pO2 82.3 ABG PO2/FiO2 Ratio 2.06 ABG HCO3 26.2 H ABG O2 Saturation 93.6 L ABG O2 Content 20.2 ABG Base Excess -3.2 A-a Gradient 127.6 Oxyhemoglobin 88.6 L Total Hemoglobin 16.2 O2 Delivery Device Nasal cannula O2 Liters/Min 5.0 FiO2 40 Imaging Data Radiologist's impression: ITS Impressions Chest X-Ray 09/26/25 09:36 Impression: Bilateral pneumonia ECG Data EKG #1: ECG completion date: 09/26/25 ECG completion time: 08:26 EKG Interpretation: normal rate, tachycardia (123), PVCs, no ST changes, normal QRS and normal QT Critical Care Time Critical Care Time Critical Care Time: Yes Total Critical Care Time: 45 (for non invasive ventilation ) Discharge Plan Discharge Clinical Impression: Respiratory failure Qualifiers: Chronicity: acute Respiratory failure complication: hypoxia and hypercapnia Q ualified Code(s): J96.01 - Acute respiratory failure with hypoxia; J96.02 - Acute respiratory failure with hypercapnia Pneumonia Qualifiers: Pneumonia type: due to unspecified organism Laterality: bilateral Lung location: unspecified part of lung Qualified Code(s): J18.9 - Pneumonia, unspecified organism Patient Disposition: Still a Patient Condition: Stable Patient Language: Greek Prescriptions: No Action prednisone 50 mg tablet 50 mg PO DAILY Qty: 5 0RF fluticasone propion-salmeterol [Advair HFA] 45-21 mcg/actuation HFA aerosol inhaler 2 puff inhalation BID Qty: 12 0RF Combivent Respimat 20-100 mcg/actuation mist 1 puff inhalation QID Qty: 4 0RF Proair Digihaler 90 mcg/actuation aero powdr breath act w/sensor 2 inh inhalation Q6H Qty: 1 0RF guaifenesin [Mucinex] 1,200 mg tablet extended release 12hr 1,200 mg PO BID 7 Days Qty: 14 0RF Patient Comments: As Needed for allergies loratadine [Claritin] 10 mg tablet 10 mg PO DAILY Qty: 30 0RF Patient Comments: As Needed for Seasonal Allergies. Pt takes Alavert which is Loratadine Jardiance 10 mg tablet 10 mg PO DAILY Qty: 90 3RF spironolactone 25 mg tablet 12.5 mg PO DAILY 90 Days Qty: 45 3RF metoprolol succinate [Toprol XL] 25 mg Tablet Extended Release 24 Hr 25 mg PO QAM 90 Days Qty: 90 3RF sacubitril-valsartan [Entresto] 24-26 mg Tablet 1 tablet PO Q12HR 90 Days Qty: 180 3RF fluticasone propion-salmeterol [Advair HFA] 45-21 mcg/actuation Hfa Aerosol Inhaler 2 puff inhalation Q12HRT 30 Days Qty: 12 1RF furosemide [Lasix] 40 mg tablet 40 mg PO DAILY 30 Days Qty: 30 1RF Combivent Respimat 20-100 mcg/actuation mist 1 puff inhalation Q4H Qty: 4 1RF Follow-up/Referrals: UNKNOWN,DOCTOR [Primary Care Provider] Time of Disposition: 11:27
--- NOTE | 2025-09-26 12:36 | PM.IMHP ---
H&P: HPI History of Present Illness Date/Time: 09/26/25 12:36 Chief Complaint: Shortness of breath Narrative: 55-year-old male who past medical history of HFrEF, COPD, ex-smoker presented to the ED on 09/26/2025 with complaints of increased shortness of breath and cough. Patient states this has been going on for the past week. His cough is productive at times and mostly clear mucus. Denies any chest pain, fever. Patient presented to the [facility] in [place] on 09/23 with similar complaints. During that visit, he reported congestion, cough, and shortness of breath. He further stated he had run out of his inhalers and was around a sick co-worker. His chest x-ray on that visit did not have evidence of pneumonia. He was discharged with prednisone and a refill of his inhalers. Today, patient states he has been using his inhalers with minimal relief. Initial vital signs 133/79, HR 125, respirations 30, afebrile and 79% on room air. Patient placed on 6 L per nasal cannula with minimal improvement. Patient placed on BiPAP. Initial ABG before patient was placed on BiPAP: PH 7.22, pCO2 65.5, HC03 26.2, O2 sat 93.6 CBC showed leukocytosis 16.6 Sodium 135, chloride 96, carbon dioxide 32, BUN 25, glucose 153, BNP 1990 UA with no evidence of infection Chest x-ray showed COPD changes with scattered bilateral infiltrates Review of Systems Review of Systems: All systems reviewed & are unremarkable except as noted in HPI and below PMFSH Past Medical History Medical History (Updated 09/26/25 @ 19:44 by Meron Woodall APRN) Cardiomyopathy COPD (chronic obstructive pulmonary disease) Asthma exacerbation in COPD Surgical History Surgical History No pertinent past surgical history Family History Family History Mother Cervical cancer Father Heart failure Social History Social History Smoking packs per day: 1 Smoking cigarettes per day: 20.0 Years smoked: 30 Smoking pack-years: 30.00 Smoking status: Former smoker Tobacco type: cigarettes Smokeless tobacco user: chewing tobacco Smoking end date: 09/26/25 Alcohol intake: never Alcohol use details: nothing for 2 years Substance use: never Substance use type: does not use Do You Feel Safe in your Home?: Yes Lack of Transportation: No Lack of Food: Never True Current Housing: I Have Housing Concerned About Future Housing: No Difficulty Paying Gas/Electric Bills: No Difficulty Paying for Meds: No Currently Unemployed: No Education: High School Diploma/GED Difficulty w/ Childcare or Family Care: No Living arrangements: with family Additional living arrangements comments: minor daughter Spiritual care concerns: No Meds Home Medications and Allergies Home Medications ?Medication ?Instructions ?Recorded ?Confirmed ?Type guaifenesin 1,200 mg tablet, 1,200 mg PO BID 7 days #14 tabs 04/19/22 09/26/25 Rx extended release 12 hr (Mucinex) loratadine 10 mg tablet (Claritin) 10 mg PO DAILY #30 tabs 04/19/22 09/26/25 Rx fluticasone propionate 45 2 puff inhalation Q12HRT 30 days 01/07/25 09/26/25 Rx mcg-salmeterol 21 mcg/actuation #12 grams HFA inhaler (Advair HFA) furosemide 40 mg tablet (Lasix) 40 mg PO DAILY 30 days #30 tabs 01/07/25 09/26/25 Rx ipratropium 20 mcg-albuterol 100 1 puff inhalation Q4H wheeing #4 01/07/25 09/26/25 Rx mcg/actuation mist for inhalation grams (Combivent Respimat) empagliflozin 10 mg tablet 10 mg PO DAILY #90 tabs 02/07/25 09/26/25 Rx (Jardiance) metoprolol succinate 25 mg 25 mg PO QAM 90 days #90 tabs 02/07/25 09/26/25 Rx tablet,extended release 24 hr (Toprol XL) sacubitril 24 mg-valsartan 26 mg 1 tablet PO Q12HR 90 days #180 tabs 02/07/25 09/26/25 Rx tablet (Entresto) spironolactone 25 mg tablet 12.5 mg (1/2 x 25 mg) PO DAILY 90 02/07/25 09/26/25 Rx days #45 tabs albuterol sulfate 90 mcg/actuation 2 inh inhalation Q6H #1 ea 09/23/25 09/26/25 Rx breath activated powder inhaler,sensor (Proair Digihaler) fluticasone propionate 45 2 puff inhalation BID #12 grams 09/23/25 09/26/25 Rx mcg-salmeterol 21 mcg/actuation HFA inhaler (Advair HFA) prednisone 50 mg tablet 50 mg PO DAILY #5 tabs 09/23/25 09/26/25 Rx ipratropium 20 mcg-albuterol 100 1 puff inhalation QID PRN 09/26/25 09/26/25 History mcg/actuation mist for inhalation shortness of breath or wheezing (Combivent Respimat) Allergies Allergy/AdvReac Type Severity Reaction Status Date / Time codeine AdvReac Intermediate light Verified 09/26/25 14:03 headed, dizzy, sweating Vital Signs Vital Signs - 24 hr 09/26/25 08:22 09/26/25 08:28 09/26/25 08:29 Temperature 98 F Pulse Rate 125 H Respiratory Rate 30 H Blood Pressure 133/79 Pulse Oximetry 79 L 87 L 91 Oxygen Delivery Room Air Nasal Cannula Nasal Cannula Oxygen Flow Rate 4 6 09/26/25 08:29 09/26/25 08:30 09/26/25 08:31 Temperature Pulse Rate 121 H 120 H 119 H Respiratory Rate 20 23 H Blood Pressure 133/79 122/76 Pulse Oximetry 90 96 Oxygen Delivery Oxygen Flow Rate 09/26/25 08:32 09/26/25 09:05 09/26/25 09:34 Temperature Pulse Rate 121 H 119 H Respiratory Rate 26 H 38 H Blood Pressure 138/92 H Pulse Oximetry 98 100 98 Oxygen Delivery Nasal Cannula BiPAP Oxygen Flow Rate 6 09/26/25 09:46 09/26/25 10:01 09/26/25 10:16 Temperature Pulse Rate 118 H 121 H 114 H Respiratory Rate 36 H 29 H 32 H Blood Pressure 140/103 H 130/85 143/94 H Pulse Oximetry 95 85 L 91 Oxygen Delivery Oxygen Flow Rate 09/26/25 10:31 09/26/25 10:46 09/26/25 11:01 Temperature Pulse Rate 118 H 115 H 113 H Respiratory Rate 18 24 H 27 H Blood Pressure 138/92 H 131/91 H 128/92 H Pulse Oximetry 89 L 98 99 Oxygen Delivery Oxygen Flow Rate 09/26/25 11:54 09/26/25 12:32 Temperature Pulse Rate 112 H 109 H Respiratory Rate 22 H 16 Blood Pressure 134/88 Pulse Oximetry 97 100 Oxygen Delivery BiPAP Oxygen Flow Rate Exam Narrative: GENERAL: Drowsy on BiPAP. HEAD: Normocephalic, atraumatic. EYES: PERRLA. Conjunctivae clear. NOSE: Normal no drainage. THROAT: Pharynx clear, no exudate. NECK: Trachea midline. No adenopathy, no masses. RESPIRATORY: Airway patent. Diminished throughout. Occasional wet sounding cough without bringing up mucus. Mildly tachypneic in the mid 20s CARDIOVASCULAR: Regular rate and rhythm GASTROINTESTINAL: Abdomen is soft and nontender. No organomegaly. Bowel sounds normal in all quadrants. GENITOURINARY: Defer MUSCULOSKELETAL: Moves all extremities. No gross deformities. No calf tenderness. SKIN: Warm, dry, normal color. NEURO: A&O X4. Speech clear. Drowsy but speaking in full sentences PSYCHIATRIC: Normal interaction H&P: Results Labs Labs: Short CBC 09/26/25 Range/Units 08:42 WBC 16.6 H (4.5-10.0) K/mm3 Hgb 15.8 (14.0-18.0) g/dL Hct 50.6 (42.0-52.0) % Plt Count 295 (150-375) k/mm3 BMP 09/26/25 08:42 Sodium 135 L Potassium 4.5 Chloride 96 L Carbon Dioxide 32 H BUN 25 H Creatinine 0.84 Glucose 153 H Calcium 9.4 Cardiac Enzymes 09/26/25 Range/Units 08:42 Troponin I 0.018 (0.000-0.034) ng/mL Liver Function 09/26/25 Range/Units 08:42 Total Bilirubin 0.4 (0.2-1.3) mg/dL AST 30 (17-59) U/L ALT 22 (6-50) U/L Alkaline Phosphatase 106 (38-126) U/L Albumin 4.2 (3.5-5.1) g/dL Assessment and Plan Assessment and plan (1) Acute on chronic respiratory failure with hypoxia and hypercapnia: Code(s): J96.21 - Acute and chronic respiratory failure with hypoxia; J96.22 - Acute and chronic respiratory failure with hypercapnia Status: Acute Assessment and Plan: Patient with history of COPD with documented severe emphysema on recent chest x-ray 09/25. Initial ABG PH 7.22, pCO2 65.5, HC03 26.2, O2 sat 93. -pulmonology consult. Appreciate recommendations and assistance on this case -repeat chest x-ray on 09/27 -repeat ABG on 09/27 - DuoNebs Q4H jesus - Solu-Medrol 40 mg IV Q 6 - home medications: Albuterol inhaler, Combivent, Advair - guaifenesin 1200 mg p.o. b.i.d. - started on ceftriaxone and azithromycin on 09/26 - AVAPS mode rate of 20, tidal volume 550, EPAP 5, minimal inspiratory pressure 6, maximal inspiratory pressure 25, inspiratory time 0.8, rise of 1 and 30% FiO2. Patient said these settings were much more comfortable. (2) Pneumonia: Qualifiers: Laterality: bilateral Lung location: unspecified part of lung Pneumonia type: due to unspecified organism Qualified Code(s): J18.9 - Pneumonia, unspecified organism Code(s): J18.9 - Pneumonia, unspecified organism Status: Acute Assessment and Plan: Patient presents with increased shortness of breath and cough present for the past week. Chest x-ray showed COPD changes with scattered bilateral infiltrates. WBC 16.6. - started azithromycin and Rocephin on 09/26 - MRSA PCR pending - Viral PCR pending - sputum culture -currently on BiPAP (3) Nonischemic cardiomyopathy: Code(s): I42.8 - Other cardiomyopathies Status: Chronic Assessment and Plan: Diagnosed in December 2024. Initial echo with EF of 30-35%. Cardiac catheterization on 02/07/2025 showed no significant coronary disease. Most recent echo 02/27/24 at outside facility ([facility] [employer] [facility] patient[facility] phone): EF 40-45% (improved from 30-35%), LV now normal, RV mildly dilated, and no significant valvular disease. - BNP 1989 - 40 mg IVP furosemide x1 - repeat with 20 mg IVP furosemide x1 on 09/27 -updated echo ordered - repeat BNP in a.m. - home meds Entresto, spironolactone, metoprolol, Jardiance, Lasix 40 mg PO - monitor I&Os and daily weights - trend renal function Plan Diet: NPO GI prophylaxis: NA DVT prophylaxis: Lovenox lines/drains: PIV Fluids: NA Code status: Full Quality VTE Prophylaxis VTE prophylaxis: pharmacologic ordered Hospitalist MIPS Advance Care Plan I have confirmed that the patient's Advanced Care Plan is present, code status is documented, or surrogate decision maker is listed in patient medical record.: Yes Medication Reconciliation I have utilized all available resources to obtain, update and review the patients current medications (includes all prescriptions, OTC, herbals, cannabis, and nutritional supplements).: Yes
--- NOTE | 2025-09-26 13:01 | ADMGEN ---
This patient, Omar Hines , was admitted to IMU Room 212-01 @ 1245. Bipap on 12/07 RATE 14, fiO2 40% Patient oriented to hospital policies and general routines including ID bracelet, bed and alarms, visiting hours, pain management, procedures, bathroom and other care routines, personal items, smoking policy, room service/diet, and visiting hours. Information on how to activate the Rapid Response Team has been discussed. Patient are encouraged to report perceived risks to care and to ask questions if they do not understand what they are told or what they should do.
[2025-09-26 13:24] LABS: Alveolar/Arterial O2 Gradient 220.2 mmHg; Fractional Inspired Oxygen 40 %; HCO3 ABG 33.1 mEq/l (22.0-26.0); Oxygen Content ABG 20.2 %vol (16.0-22.0); Oxygen Saturation ABG 93.9 % (95.0-100.0); PO2 ABG 84.1 mmHg (80.0-100.0); PO2 FiO2 Ratio Arterial Blood 2.10 %
[2025-09-26 13:27] LABS: Modified Allen's Test Pass; PCO2 ABG 80.8 mmHg (35.0-45.0); Site Drawn LEFT RADIAL
[2025-09-26] MEDS: IPRATROPIUM 0.5 MG/ALBUTEROL SULFATE 2.5 MG (BASE) AMPUL.NEB 3 ML INHALATION ×2 (13:40→20:04)
[2025-09-26] MEDS: ENOXAPARIN 40 MG/0.4 ML SYRINGE SUB-Q (15:33)
[2025-09-26 15:40] LABS: Alveolar/Arterial O2 Gradient 157.4 mmHg; Fractional Inspired Oxygen 30 %; HCO3 ABG 33.1 mEq/l (22.0-26.0); Oxygen Content ABG 19.1 %vol (16.0-22.0); Oxygen Saturation ABG 90.4 % (95.0-100.0); PO2 ABG 67.5 mmHg (80.0-100.0); PO2 FiO2 Ratio Arterial Blood 2.25 %
[2025-09-26 15:42] LABS: PCO2 ABG 72.1 mmHg (35.0-45.0)
[2025-09-26 15:43] LABS: Liters per Minute 3.0 LPM; Modified Allen's Test Pass; Site Drawn LEFT RADIAL
--- NOTE | 2025-09-26 16:03 | PC.NURSE ---
pt very drowsy at this time - unable to give po medications; Meron Michel [employer] at bedside
--- NOTE | 2025-09-26 16:31 | P.CONPL_ITS ---
Assessment and Plan Assessment and plan (1) COPD (chronic obstructive pulmonary disease): Code(s): J44.9 - Chronic obstructive pulmonary disease, unspecified Status: Inactive Assessment and Plan: Patient carries a history of COPD. Tobacco use 1 pack per day for 28 years. I have no PFTs. CT scan of the chest on 01/01/2024 with panlobular emphysema all lung buchanan. Home medicines include Combivent, Advair, albuterol. Patient presents with 1 week history of sinus congestion, cough, shortness of breath and was seen in the emergency department on 09/23/2025 and given prednisone Advair and Combivent. Patient worsened and presented to the emergency room today with room air saturation 79%, bilateral wheezes, white blood cell count 16.6, eosinophils 0.2%, creatinine 0.84, BNP 1989 and a chest x-ray that showed increased diffuse bilateral interstitial alveolar infiltrates compared to 09/23/2025. Patient had acute on chronic hypercarbic and hypoxemic respiratory failure with a blood gas on 5 L of 7.//82. COVID and influenza RT PCR assay negative. Plan: I will treat the patient for COPD exacerbation and placed him on Solu- Medrol 40 mg IV Q 6. I will increase the frequency of his DuoNebs from q.6 hours to q.4 hours. This regimen provides maximal beta agonist and muscarinic antagonists and will discontinue Advair. I will place him on guaifenesin 1200 mg p.o. b.i.d. to help him expectorate. I will check an alpha 1 anti trypsin genotype and level. Regarding the possibility of pneumonia. Patient will be placed on ceftriaxone and azithromycin for possible pneumonia. I will send urine for Legionella, urine for pneumococcal, serum mycoplasma IgM, respiratory pathogen panel. I will send a procalcitonin and CRP on 09/26/2025. He has a severe pneumonia and as above is on Solu-Medrol 40 mg IV q.6. Discussed with Meron Woodall, will follow with you. (2) Acute on chronic respiratory failure with hypoxia and hypercapnia: Code(s): J96.21 - Acute and chronic respiratory failure with hypoxia; J96.22 - Acute and chronic respiratory failure with hypercapnia Status: Acute Assessment and Plan: Patient was placed on BiPAP rate of 14, pressures 15/8 with 60% FiO2 and blood gas of 7.23/81/84. Patient was then placed on BiPAP rate of 18, pressures 20/8, 30% FiO2 with a blood gas of 7.28/72/68. When I enter the room the patient was on BiPAP rate of 18 breathing 34 times a minute, pressures 20/8 with tidal volume 531, minute ventilation 18.5, 40% FiO2 with saturations 97%. Patient said the mask was comfortable but the air delivery was not comfortable. I changed the patient to noninvasive ventilation with the AVAPS mode and adjust his settings to come for resulting in a rate of 20, tidal volume 550, EPAP 5, minimal inspiratory pressure 6, maximal inspiratory pressure 25, inspiratory time 0.8, rise of 1 which is the fastest and 30% FiO2. Patient said these settings were much more comfortable. Plan: Patient is awake and conversant at this time. He is following all commands. I will continue the AVAPS mode and settings as above overnight and check an ABG at 5:00 a.m. in the morning. (3) Cardiomyopathy: Code(s): I42.9 - Cardiomyopathy, unspecified Status: Inactive Assessment and Plan: Regarding his nonischemic cardiomyopathy: EF on of 30-35%, With a mildly dilated RV and mildly decreased function, right atrium was dilated, left atrium was normal on 01/02/2025, cardiac catheterization on 02/07/2025 with nonobstructive coronary artery disease. Patient shows me a repeat echo report on his phone from 02/26/2025 with an LVEF of 40-45%, right ventricular mildly dilated with normal function and no valvular disease. Plan: Patient will given 40 mg of IV Lasix Per hospitalist team. Agree with as aggressive diuresis as tolerated by his cardiac and renal systems. Patient is on Entresto, spironolactone, metoprolol, Jardiance.. History of Present Illness History of Present Illness Consult date: 09/26/25 Chief complaint: Respiratory Failure Narrative: 09/26/2025: This is a new pulmonary consult for COPD exacerbation with acute on chronic hypercarbic respiratory failure. 55-year-old man with a history of COPD, nonischemic cardiomyopathy, tobacco use patient is currently on BiPAP and history is limited. Regarding his COPD, CT scan of the chest on 01/01/2025 shows severe panlobular Emphysema. Home medications include ProAir, Combivent, Advair 45-21 at 2 puffs q.12 hours. Regarding his nonischemic cardiomyopathy: EF on of 30-35%, With a mildly dilated RV and mildly decreased function, right atrium was dilated, left atrium was normal on 01/02/2025, cardiac catheterization on 02/07/2025 with nonobstructive coronary artery disease. Patient shows me a repeat echo report on his phone from 02/26/2025 with an LVEF of 40-45%, right ventricular mildly dilated with normal function and no valvular disease. patient was seen in the emergency department on 09/23/2025 with 2 days of congestion, cough, shortness of breath and he had ran out of his inhalers. He had no wheezing and was discharged home on prednisone, Advair and Combivent. Patient returned to the emergency room on 09/26/2025 with 1 week shortness of breath, cough, mucus with room air saturations 79%. Blood pressure 133/79, heart rate 125, respirations 30. Patient was in respiratory distress and had and blood gas of 7.22/66/82 on 5 L nasal cannula. white blood cell count 16.6, eosinophils 0.2%, creatinine 0.84, lactic acid 1.9, BNP 1990. Chest x-ray showed diffuse interstitial alveolar infiltrates throughout all lung buchanan that were worse since 09/23/2025. Patient was placed on BiPAP rate of 14, pressures 15/8 with 60% FiO2 and blood gas of 7.23/81/84. Patient was then placed on BiPAP rate of 18, pressures 20/8, 30% FiO2 with a blood gas of 7.28/72/68. When I enter the room the patient was on BiPAP rate of 18 breathing 34 times a minute, pressures 20/8 with tidal volume 531, minute ventilation 18.5, 40% FiO2 with saturations 97%. Patient said the mask was comfortable but the air delivery was not comfortable. I changed the patient to noninvasive ventilation with the AVAPS mode and adjust his settings to come for resulting in a rate of 20, tidal volume 550, EPAP 5, minimal inspiratory pressure 6, maximal inspiratory pressure 25, inspiratory time 0.8, rise of 1 which is the fastest and 30% FiO2. Patient said these settings were much more comfortable. DATA: EXAMINATION: XR chest 1V portable COMPARISON: No comparisons available. HISTORY: sob FINDINGS: COPD changes with scattered bilateral infiltrates. No pneumothorax. Heart is normal size. Mediastinal and hilar contours are within normal limits. Bony thorax no acute abnormality. Miscellaneous: None Impression: Bilateral pneumonia 01/01/2025: EXAMINATION: CTA chest PE protocol INDICATION: Pulmonary embolus suspected clinically COMPARISON: None. Reference is made to plain radiograph of the chest, performed 8 hours earlier. FINDINGS: No filling defect is identified within the main or proximal pulmonary arteries. The thoracic aorta is nonaneurysmal and no dissection is present Panlobular emphysematous disease is identified with scarring in the right upper and lower lobes. The stomach is distended with retained gastric contents. Air opacified bowel within the soft tissues of the anterior abdominal wall, incompletely evaluated on the current study. IMPRESSION: No pulmonary embolus. No aortic dissection. Gastric distention and gastric contents. Air opacified bowel within the soft tissues of the anterior abdominal wall, incompletely evaluated on the current study. Review of Systems 2 Review of Systems: ROS unobtainable: Yes unobtainable due to medical condition [facility] Past Medical History Medical History (Updated 09/26/25 @ 16:45 by Jaxson Abel MD) COPD (chronic obstructive pulmonary disease) Cardiomyopathy Asthma exacerbation in COPD Surgical History Surgical History No pertinent past surgical history Family History Family History Mother Cervical cancer Father Heart failure Social History Social History Smoking packs per day: 1 Smoking cigarettes per day: 20.0 Years smoked: 30 Smoking pack-years: 30.00 Smoking status: Former smoker Tobacco type: cigarettes Smokeless tobacco user: chewing tobacco Smoking end date: 09/26/25 Alcohol intake: never Alcohol use details: nothing for 2 years Substance use: never Substance use type: does not use Do You Feel Safe in your Home?: Yes Lack of Transportation: No Lack of Food: Never True Current Housing: I Have Housing Concerned About Future Housing: No Difficulty Paying Gas/Electric Bills: No Difficulty Paying for Meds: No Currently Unemployed: No Education: High School Diploma/GED Difficulty w/ Childcare or Family Care: No Living arrangements: with family Additional living arrangements comments: minor daughter Spiritual care concerns: No Meds Home Medications and Allergies Home Medications ?Medication ?Instructions ?Recorded ?Confirmed ?Type guaifenesin 1,200 mg tablet, 1,200 mg PO BID 7 days #1 4 tabs 04/19/22 09/26/25 Rx extended release 12 hr (Mucinex) loratadine 10 mg tablet (Claritin) 10 mg PO DAILY #30 tabs 04/19/22 09/26/25 Rx fluticasone propionate 45 2 puff inhalation Q12HRT 30 days 01/07/25 09/26/25 Rx mcg-salmeterol 21 mcg/actuation #12 grams HFA inhaler (Advair HFA) furosemide 40 mg tablet (Lasix) 40 mg PO DAILY 30 days #30 tabs 01/07/25 09/26/25 Rx ipratropium 20 mcg-albuterol 100 1 puff inhalation Q4H wheeing #4 01/07/25 09/26/25 Rx mcg/actuation mist for inhalation grams (Combivent Respimat) empagliflozin 10 mg tablet 10 mg PO DAILY #90 tabs 09/26/25 Rx (Jardiance) metoprolol succinate 25 mg 25 mg PO QAM 90 days #90 ta bs 02/07/25 09/26/25 Rx tablet,extended release 24 hr (Toprol XL) sacubitril 24 mg-valsartan 26 mg 1 tablet PO Q12HR 90 days #180 tabs 02/07/25 09/26/25 Rx tablet (Entresto) spironolactone 25 mg tablet 12.5 mg (1/2 x 25 mg) PO D AILY 90 02/07/25 09/26/25 Rx days #45 tabs albuterol sulfate 90 mcg/actuation 2 inh inhalation Q6 H #1 ea 09/23/25 09/26/25 Rx breath activated powder inhaler,sensor (Proair Digihaler) fluticasone propionate 45 2 puff inhalation BID #12 gr ams 09/23/25 09/26/25 Rx mcg-salmeterol 21 mcg/actuation HFA inhaler (Advair HFA) prednisone 50 mg tablet 50 mg PO DAILY #5 tabs 09/2309/26/25 Rx ipratropium 20 mcg-albuterol 100 1 puff inhalation QID PRN 09/26/25 09/26/25 History mcg/actuation mist for inhalation shortness of breath or wheezing (Combivent Respimat) Allergies Allergy/AdvReac Type Severity Reaction Status Date / Time codeine AdvReac Intermediate light Verified 09/26/25 14:03 headed, dizzy, sweating Vital Signs Vital Signs - 24 hr 09/26/25 08:22 09/26/25 08:28 09/26/25 08:29 Temperature 36.6 C Pulse Rate 125 H Respiratory Rate 30 H Blood Pressure 133/79 Pulse Oximetry 79 L 87 L 91 Oxygen Delivery Room Air Nasal Cannula Nasal Cannula Oxygen Flow Rate 4 6 09/26/25 08:29 09/26/25 08:30 09/26/25 08:31 Temperature Pulse Rate 121 H 120 H 119 H Respiratory Rate 20 23 H Blood Pressure 133/79 122/76 Pulse Oximetry 90 96 Oxygen Delivery Oxygen Flow Rate 09/26/25 08:32 09/26/25 09:05 09/26/25 09:34 Temperature Pulse Rate 121 H 119 H Respiratory Rate 26 H 38 H Blood Pressure 138/92 H Pulse Oximetry 98 100 98 Oxygen Delivery Nasal Cannula BiPAP Oxygen Flow Rate 6 09/26/25 09:46 09/26/25 10:01 09/26/25 10:16 Temperature Pulse Rate 118 H 121 H 114 H Respiratory Rate 36 H 29 H 32 H Blood Pressure 140/103 H 130/85 143/94 H Pulse Oximetry 95 85 L 91 Oxygen Delivery Oxygen Flow Rate 09/26/25 10:31 09/26/25 10:46 09/26/25 11:01 Temperature Pulse Rate 118 H 115 H 113 H Respiratory Rate 18 24 H 27 H Blood Pressure 138/92 H 131/91 H 128/92 H Pulse Oximetry 89 L 98 99 Oxygen Delivery Oxygen Flow Rate 09/26/25 11:54 09/26/25 12:32 09/26/25 12:45 Temperature 36.2 C L Pulse Rate 112 H 109 H 104 H Respiratory Rate 22 H 16 23 H Blood Pressure 134/88 125/75 Pulse Oximetry 97 100 100 Oxygen Delivery BiPAP Oxygen Flow Rate 09/26/25 13:40 09/26/25 14:15 09/26/25 16:00 Temperature 36.6 C Pulse Rate 121 H 104 H 111 H Respiratory Rate 32 H 32 H 41 H Blood Pressure 130/78 Pulse Oximetry 93 94 Oxygen Delivery BiPAP Oxygen Flow Rate Exam 2 Narrative: currently on BiPAP. Const: General: cooperative, comfortable and no acute distress O rientation/consciousness: oriented to person, oriented to place and oriented to time HENMT: Head: normal to inspection Ears: hearing grossly normal bilaterally Eyes: General: appearance normal, both eyes and all related structures Neck: Neck: normal visual inspection Chest: Chest palpation & inspection: normal inspection of the chest Resp: Effort & Inspection: normal respiratory effort and able to speak in complete sentences Auscultation: no crackles, no rales, no rhonchi, no wheezes and lung sounds not diminished Other: No wheezing, no crackles Cardio: Jugular venous distension: no JVD GI: Inspection: normal to inspection GI Palp: No abdominal tenderness Skin: General skin exam: normal color Neuro: General: oriented to person, oriented to place and oriented to time Extrem: General: normal to inspection Other: no edema Psych: Appearance: grossly normal Results Laboratory Findings 09/26/25 08:42 09/26/25 08:42 ABG, PT/INR, D-dimer: ABG ABG pH 7.280 (7.350-7.450) L* 09/26/25 15:32 ABG pCO2 72.1 mmHg (35.0-45.0) H* 09/26/25 15:32 ABG pO2 67.5 mmHg (80.0-100.0) L 09/26/25 15:32 ABG O2 Saturation 90.4 % (95.0-100.0) L 09/26/25 15:32 Abnormal lab findings: Abnormal Labs 09/26/25 09/26/25 09/26/25 08:42 08:45 13:21 WBC 16.6 H MCHC 31.2 L Neut % (Auto) 86.6 H Lymph % (Auto) 4.4 L Lymph # (Auto) 0.73 L [place] # (Auto) 1.4 H Abs Immat Gran (auto) 0.05 H Absolute Neuts (auto) 14.4 H ABG pH 7.220 L* 7.230 L* ABG pCO2 65.5 H* 80.8 H* ABG pO2 ABG HCO3 26.2 H 33.1 H ABG O2 Saturation 93.6 L 93.9 L Oxyhemoglobin 88.6 L Sodium 135 L Chloride 96 L Carbon Dioxide 32 H BUN 25 H Glucose 153 H NT-Pro-B Natriuret Pep 1990 H 09/26/25 15:32 WBC MCHC Neut % (Auto) Lymph % (Auto) Lymph # (Auto) [place] # (Auto) Abs Immat Gran (auto) Absolute Neuts (auto) ABG pH 7.280 L* ABG pCO2 72.1 H* ABG pO2 67.5 L ABG HCO3 33.1 H ABG O2 Saturation 90.4 L Oxyhemoglobin 88.2 L Sodium Chloride Carbon Dioxide BUN Glucose NT-Pro-B Natriuret Pep Diagnostic Findings Additional studies: ITS Impressions Chest X-Ray 09/26/25 09:36 Impression: Bilateral pneumonia
[2025-09-26] MEDS: METOPROLOL SUCCINATE EXT REL 25 MG TABCR PO (17:12)
[2025-09-26] MEDS: FUROSEMIDE INJ 40 MG/4 ML VIAL IV PUSH (17:12)
[2025-09-26] MEDS: EMPAGLIFLOZIN 10 MG TABLET PO (17:13)
[2025-09-26 17:18] LABS: Add Urine Microscopic? NO; Appearance Urine Clear (Clear); Glucose Urine UA 3+ mg/dL (Negative); Leukocyte Esterase Ur Negative LEU/UL (Negative); Nitrate Urine Negative (Negative); Specific Grav Ur 1.034 (1.001-1.035)
[2025-09-26] MEDS: AZITHROMYCIN IV 500 MG in SODIUM CHLORIDE 0.9% IV 250 ML IVPB (17:30)
[2025-09-26 18:51] LABS: Non-Invasive Expiratory Pressure 8 CMH2O; Non-Invasive Inspiratory Pressure 20 CMH2O; Non-Invasive Vent Rate 18 /MIN
[2025-09-26] MEDS: guaiFENesin 12 HR 600 MG TABCR 1200 MG PO (20:13)
[2025-09-26] MEDS: SACUBITRIL/VALSARTAN 24-26 MG TABLET 1 TAB PO (20:13)
[2025-09-26 20:28] LABS: MRSA (PCR) DETECTED (NOT DETECTE)
[2025-09-26] MEDS: MUPIROCIN 2% OINT 22 GM TUBE 1 APPLIC EACH NARE (21:43)
[2025-09-27] VITALS (34 sets, daily range): BP systolic 92–122; BP diastolic 58–90; PULSE 87–116; RESP 18–27; TEMP 36.6–36.9; O2SAT 91–97
--- NOTE | 2025-09-27 | ECHO_ITS ---
Patient Info Name: Omar Hines Age: 55 years : 1970 Gender: Male Ht: 76 in Wt: 205 lbs BSA: 2.24 m2 HR: 138 bpm BP: 100 / 70 mmHg Heart Rhythm: Sinus Rhythm Technical Quality: Good Exam Date: 09/27/2025 9:32 AM Patient Status: I Admit Date: 09/26/2025 Exam Type: CA echo doppler color flow Complete two-dimensional, color flow and Doppler transthoracic echocardiogram is performed. Staff Referring Physician: Jaxson Abel Rectangular Tank Cooper: Zoey Byrne Attending Provider: Taras Spencer MD Summary 1. Complete two-dimensional, color flow and Doppler transthoracic echocardiogram is performed. 2. Normal left ventricular size with mildly reduced systolic function. 3. Right ventricular enlargement with reduced RV function. 4. Dilated right atrium. 5. Small amount of MR. 6. Sinus rhythm with frequent PVCs during this exam making contractility assessment challenging. Left Ventricle Left ventricular chamber dimension is normal. Left ventricular systolic function is mildly reduced, estimated at 45-50. The left ventricular diastolic function is grade I diastolic dysfunction. Right Ventricle Right ventricular chamber dimension is moderately enlarged. Right ventricular systolic function is reduced. Left Atria Left atrial chamber dimension is normal. Right Atria Right atrial chamber dimension is mildly enlarged. Aortic Valve The aortic valve is normal. Pulmonic Valve The pulmonic valve is normal. Mitral Valve The mitral valve has normal leaflets. There is trace mitral valve regurgitation. Tricuspid Valve The tricuspid valve leaflets are normal. Pericardium/Pleural The pericardium appears normal. Aorta The aortic root size at the sinus of Valsalva is normal. Left Ventricular Outflow Tract Name Value Normal LVOT 2D LVOT Diameter 2.0 cm LVOT Doppler LVOT Peak Velocity 127 cm/s LVOT Peak Gradient 6 mmHg LVOT Mean Gradient 4 mmHg LVOT VTI 23 cm LVOT Stroke Volume 76 ml LVOT CO 10.4 l/min LVOT CI 4.7 l/min/m2 Pulmonic Valve Name Value Normal RVOT Doppler RVOT Peak Velocity 68 cm/s RVOT Peak Gradient 2 mmHg PV Doppler PV Peak Velocity 82 cm/s PV Peak Gradient 3 mmHg Mitral Valve Name Value Normal MV Diastolic Function MV E Peak Velocity 57 cm/s MV A Peak Velocity 92 cm/s MV E/A 0.6 MV Decel Time (PW) 202 ms MV Annular TDI MV E/e' (Septal) 6.6 MV E/e' (Lateral) 6.1 MV E/e' (Average) 6.4 Aortic Valve Name Value Normal AV Doppler AV Peak Velocity 162 cm/s AV Peak Gradient 11 mmHg AV Area (Cont Eq Devin) 2.5 cm2 AV DI (Devin) 0.78 AV Regurgitation 2D LVOT Area 3.2 cm2 Ventricles Name Value Normal LV Dimensions 2D/MM IVS Diastolic Thickness (2D) 1.0 cm 0.6-1.0 LVID Diastole (2D) 4.5 cm 4.2-5.8 LVIW Diastolic Thickness (2D) 0.9 cm 0.6-1.0 LVID Systole (2D) 3.3 cm 2.5-4.0 LVOT Diameter 2.0 cm LV Mass (2D Cubed) 150.20 g 88.00-224.00 LV Mass Index (2D Cubed) 67 g/m2 49-115 Relative Wall Thickness (2D) 0.41 <=0.42 LV Fractional Shortening/Ejection Fraction 2D/MM LV Fractional Shortening (2D) 27 % 25-43 LV EF (2D Teichholz) 53 % LV Diastolic Volume (4C MOD) 153 ml LV EF (4C MOD) 56 % LV Diastolic Volume (2C MOD) 171 ml LV EF (2C MOD) 47 % LV Diastolic Volume (BP MOD) 165 ml 62-150 LV Diastolic Volume Index (BP MOD) 74 ml/m2 34-74 LV Systolic Volume (BP MOD) 80 ml 21-61 LV Systolic Volume Index (BP MOD) 36 ml/m2 11-31 LV EF (BP MOD) 52 % 52-72 LV Diastolic Length (4C) 9.9 cm LV Systolic Length (4C) 9.2 cm LV Stroke Volume (4C MOD) 85 ml Atria Name Value Normal LA Dimensions LA Volume (4C A-L) 33 ml LA Volume (BP A-L) 44 ml RA Dimensions RA Systolic Major [place] Length (4C) 5.1 cm 2.1-2.7 RA Area (4C) 17.6 cm2 <=18.0 Report Signatures
[2025-09-27] MEDS: IPRATROPIUM 0.5 MG/ALBUTEROL SULFATE 2.5 MG (BASE) AMPUL.NEB 3 ML INHALATION ×6 (00:08→20:56)
[2025-09-27 05:30] LABS: Alveolar/Arterial O2 Gradient 69.0 mmHg; Fractional Inspired Oxygen 30 %; HCO3 ABG 34.0 mEq/l (22.0-26.0); Oxygen Content ABG 18.6 %vol (16.0-22.0); Oxygen Saturation ABG 93.0 % (95.0-100.0); PO2 ABG 70.8 mmHg (80.0-100.0); PO2 FiO2 Ratio Arterial Blood 2.36 %
[2025-09-27 05:31] LABS: Modified Allen's Test Pass; PCO2 ABG 63.1 mmHg (35.0-45.0); Site Drawn RIGHT RADIAL
[2025-09-27 05:32] LABS: Non-Invasive Vent Rate 20 /MIN
[2025-09-27 05:33] LABS: Non-Invasive Expiratory Pressure 5 CMH2O
[2025-09-27 07:12] LABS: Hematocrit 43.8 % (42.0-52.0); Hemoglobin 13.8 g/dL (14.0-18.0); Immature Granulocyte Percent A 0.3 % (0-0.5); Lymphocytes Absolute Auto 0.83 K/mm3 (0.9-3.2); Mean Corpuscular HGB Conc 31.5 g/dl (32-36); Mean Corpuscular Hemoglobin 30.1 pg (26-34); Mean Corpuscular Volume 95.4 fl (80-100); Nucleated Red Blood Cells Absolute Auto 0.000 K/mm3 (0.0-0.012); Nucleated Red Blood Cells Perc 0.0 % (0.0-0.2); Platelet Count Result 256 k/mm3 (150-375); Red Blood Count 4.59 M/mm3 (4.6-6.20); White Blood Count 9.6 K/mm3 (4.5-10.0)
[2025-09-27 07:51] LABS: Free T4 Free Thyroxine 1.44 ng/dL (0.78-2.19)
[2025-09-27 08:08] LABS: Anion Gap 3 mmol/L (4-12); Blood Urea Nitrogen 29 mg/dL (9-20); CRP 7.5 mg/dL (<1.0); Calcium 9.1 mg/dL (8.4-10.2); Carbon Dioxide 36 mmol/L (22-30); Chloride 96 mmol/L (98-107); Estimated CRCL calculation 111 ml/min; Estimated Glomerular Filt Rate > 60; Glucose 120 mg/dL (65-110); Magnesium 2.4 mg/dL (1.6-2.3); NT Pro B Type Natriuretic Pept 1440 pg/mL (19.9-100); Potassium 5.1 mmol/L (3.4-5.0); Sodium 135 mmol/L (137-145); Thyroid Stimulating Hormone 0.165 uIU/mL (0.465-4.680)
[2025-09-27] MEDS: EMPAGLIFLOZIN 10 MG TABLET PO (10:17)
[2025-09-27] MEDS: guaiFENesin 12 HR 600 MG TABCR 1200 MG PO ×2 (10:17→20:25)
[2025-09-27] MEDS: cefTRIAXone 1 GM in SODIUM CHLORIDE 0.9% IV 50 ML 100 ML IVPB (10:18)
[2025-09-27] MEDS: ENOXAPARIN 40 MG/0.4 ML SYRINGE SUB-Q (10:19)
[2025-09-27] MEDS: METOPROLOL SUCCINATE EXT REL 25 MG TABCR PO (10:22)
[2025-09-27] MEDS: SACUBITRIL/VALSARTAN 24-26 MG TABLET 1 TAB PO ×2 (10:24→20:26)
[2025-09-27] MEDS: VANCOMYCIN 1,250 MG/NS 250 ML 1,250 MG/250 ML BAG 166.67 MG IVPB (10:36)
[2025-09-27] MEDS: MUPIROCIN 2% OINT 22 GM TUBE 1 APPLIC EACH NARE ×2 (10:36→20:28)
[2025-09-27 11:32] LABS: Procalcitonin 0.1 ng/mL
[2025-09-27] MEDS: VANCOMYCIN HCL 1,000 MG in SODIUM CHLORIDE 0.9% IV 250 ML 250 MG IVPB (12:40)
--- NOTE | 2025-09-27 13:14 | P.PNPL_ITS ---
Progress Note: A&P Assessment and Plan (1) COPD (chronic obstructive pulmonary disease): Code(s): J44.9 - Chronic obstructive pulmonary disease, unspecified Status: Inactive Assessment and Plan: Patient carries a history of COPD. Tobacco use 1 pack per day for 28 years. I have no PFTs. CT scan of the chest on 01/01/2024 with panlobular emphysema all lung [place]. Home medicines include Combivent, Advair, albuterol. Patient presents with 1 week history of sinus congestion, cough, shortness of breath and was seen in the emergency department on 09/23/2025 and given prednisone Advair and Combivent. Patient worsened and presented to the emergency room today with room air saturation 79%, bilateral wheezes, white blood cell count 16.6, eosinophils 0.2%, creatinine 0.84, BNP 1990 and a chest x-ray that showed increased diffuse bilateral interstitial alveolar infiltrates compared to 09/23/2025. Patient had acute on chronic hypercarbic and hypoxemic respiratory failure with a blood gas on 5 L of 7./. COVID and influenza RT PCR assay negative. Plan: I will treat the patient for COPD exacerbation and placed him on Solu- Medrol 40 mg IV Q 6. I will increase the frequency of his DuoNebs from q.6 hours to q.4 hours. This regimen provides maximal beta agonist and muscarinic antagonists and will discontinue Advair. I will place him on guaifenesin 1200 mg p.o. b.i.d. to help him expectorate. I will check an alpha 1 anti trypsin genotype and level. Regarding the possibility of pneumonia. Patient will be placed on ceftriaxone and azithromycin for possible pneumonia. I will send urine for Legionella, urine for pneumococcal, serum mycoplasma IgM, respiratory pathogen panel. I will send a procalcitonin and CRP on 09/26/2025. He has a severe pneumonia and as above is on Solu-Medrol 40 mg IV q.6. 09/27/2025: Patient wore BiPAP all day yesterday and through the night. Currently he is off the BiPAP and said that he is feeling much better. 80-85% back to his normal. His cough is normal his phlegm is improved but has changed from clear to yellow. When I enter the room the patient was on 2 L nasal cannula saturations 96%. I decreased him to room air saturations went to 86% and I decreased increased him back to 1 L and his saturations were 92%. His white blood cell count is 9.6, creatinine is 0.76. BNP has improved from 1989 on 09/26/2025 to 1440 today. CRP is 7.5. Procalcitonin is 0.1. MRSA nasal swab was positive and vancomycin was added. Chest x-ray showed mild interstitial infiltrates consistent with congestion and no focal infiltrates. Plan: Patient has no wheezes today and I will change his Solu-Medrol to prednisone 40 mg p.o. q.day. Patient is on DuoNebs q.4 hours. He has improved. currently patient is receiving ceftriaxone, azithromycin both day 2. Vancomycin was added today for MRSA nasal swab positive. If blood cultures remain negative at 48 hours and patient continues to clinically improve will consider deescalation. Pulmonary inpatient consultative services will return resume on 09/30/2025, call the on-call physician for questions. Discussed with Leena Miranda. Will follow with you. (2) Acute on chronic respiratory failure with hypoxia and hypercapnia: Code(s): J96.21 - Acute and chronic respiratory failure with hypoxia; J96.22 - Acute and chronic respiratory failure with hypercapnia Status: Acute Assessment and Plan: Patient was placed on BiPAP rate of 14, pressures 15/8 with 60% FiO2 and blood gas of 7.23/81/84. Patient was then placed on BiPAP rate of 18, pressures 20/8, 30% FiO2 with a blood gas of 7.28/72/68. When I enter the room the patient was on BiPAP rate of 18 breathing 34 times a minute, pressures 20/8 with tidal volume 531, minute ventilation 18.5, 40% FiO2 with saturations 97%. Patient said the mask was comfortable but the air [place] was not comfortable. I changed the patient to noninvasive ventilation with the AVAPS mode and adjust his settings to come for resulting in a rate of 20, tidal volume 550, EPAP 5, minimal inspiratory pressure 6, maximal inspiratory pressure 25, inspiratory time 0.8, rise of 1 which is the fastest and 30% FiO2. Patient said these settings were much more comfortable. Plan: Patient is awake and conversant at this time. He is following all commands. I will continue the AVAPS mode and settings as above overnight and check an ABG at 5:00 a.m. in the morning. 09/27/25: Last night the patient wore noninvasive ventilation with the AVAPS mode and the settings above. Patient had an ABG prior to removal of 7.35//71. Patient feels he does not need the AVAPS mode tonight. Plan: Patient has improved with treatment for COPD exacerbation, pneumonia and fluid overload. Tonight the patient will wear 2 L nasal cannula only and I will perform ABG in the morning and overnight oximetry to assess his oxygenation and ventilation. (3) Cardiomyopathy: Code(s): I42.9 - Cardiomyopathy, unspecified Status: Acute Assessment and Plan: Regarding his nonischemic cardiomyopathy: EF on of 30-35%, With a mildly dilated RV and mildly decreased function, right atrium was dilated, left atrium was normal on 01/02/2025, cardiac catheterization on 02/07/2025 with nonobstructive coronary artery disease. Patient shows me a repeat echo report on his phone from 02/26/2025 with an LVEF of 40-45%, right ventricular mildly dilated with normal function and no valvular disease. Plan: Patient will given 40 mg of IV Lasix Per hospitalist team. Agree with as aggressive diuresis as tolerated by his cardiac and renal systems. Patient is on Entresto, spironolactone, metoprolol, Jardiance.. 09/27/25: Yesterday the patient was -1.7 L, cumulative he is -2.2 L since admission. His weight today is 88.3 kg. Plan: Management per hospitalist team. Echocardiogram later today. Subjective Date/time seen: 09/27/25 13:14 Interval history: 09/26/2025: This is a new pulmonary consult for COPD exacerbation with acute on chronic hypercarbic respiratory failure. 55-year-old man with a history of COPD, nonischemic cardiomyopathy, tobacco use patient is currently on BiPAP and history is limited. Regarding his COPD, CT scan of the chest on 01/01/2025 shows severe panlobular Emphysema. Home medications include ProAir, Combivent, Advair 45-21 at 2 puffs q.12 hours. Regarding his nonischemic cardiomyopathy: EF on of 30-35%, With a mildly dilated RV and mildly decreased function, right atrium was dilated, left atrium was normal on 01/02/2025, cardiac catheterization on 02/07/2025 with nono bstructive coronary artery disease. Patient shows me a repeat echo report on his phone from 02/26/2025 with an LVEF of 40-45%, right ventricular mildly dilated with normal function and no valvular disease. patient was seen in the emergency department on 09/23/2025 with 2 days of congestion, cough, shortness of breath and he had ran out of his inhalers. He had no wheezing and was discharged home on prednisone, Advair and Combivent. 09/26/25: Patient returned to the emergency room on 09/26/2025 with 1 week shortness of breath, cough, mucus with room air saturations 79%. Blood pressure 133/79, heart rate 125, respirations 30. Patient was in respiratory distress and had and blood gas of 7.22/66/82 on 5 L nasal cannula. white blood cell count 16.6, eosinophils 0.2%, creatinine 0.84, lactic acid 1.9, BNP 1990. Chest x-ray showed diffuse interstitial alveolar infiltrates throughout all lung [place] that were worse since 09/23/2025. Patient was placed on BiPAP rate of 14, pressures 15/8 with 60% FiO2 and blood gas of 7.23/81/84. Patient was then placed on BiPAP rate of 18, pressures 20/8, 30% FiO2 with a blood gas of 7.28/72/68. When I enter the room the patient was on BiPAP rate of 18 breathing 34 times a minute, pressures 20/8 with tidal volume 531, minute ventilation 18.5, 40% FiO2 with saturations 97%. Patient said the mask was comfortable but the air delivery was not comfortable. I changed the patient to noninvasive ventilation with the AVAPS mode and adjust his settings to come for resulting in a rate of 20, tidal volume 550, EPAP 5, minimal inspiratory pressure 6, maximal inspiratory pressure 25, inspiratory time 0.8, rise of 1 which is the fastest and 30% FiO2. Patient said these settings were much more comfortable. 09/27/2025: Patient wore BiPAP all day yesterday and through the night. Currently he is off the BiPAP and said that he is feeling much better. 80-85% back to his normal. His cough is normal his phlegm is improved but has changed from clear to yellow. When I enter the room the patient was on 2 L nasal cannula saturations 96%. I decreased him to room air saturations went to 86% and I decreased increased him back to 1 L and his saturations were 92%. His white blood cell count is 9.6, creatinine is 0.76. BNP has improved from 1989 on 09/26/2025 to 1440 today. CRP is 7.5. Procalcitonin is 0.1. MRSA nasal swab was positive and vancomycin was added. Chest x-ray showed mild interstitial infiltrates consistent with congestion and no focal infiltrates. Yesterday the patient was -1.7 L, cumulative he is -2.2 L since admission. His weight today is 88.3 kg. Last night the patient wore noninvasive ventilation with the AVAPS mode and the settings above. Patient had an ABG prior to removal of 7.. Patient feels he does not need the AVAPS mode tonight. DATA: EXAMINATION: XR chest 1V portable COMPARISON: No comparisons available. HISTORY: sob FINDINGS: COPD changes with scattered bilateral infiltrates. No pneumothorax. Heart is normal size. Mediastinal and hilar contours are within normal limits. Bony thorax no acute abnormality. Miscellaneous: None Impression: Bilateral pneumonia 01/01/2025: EXAMINATION: CTA chest PE protocol INDICATION: Pulmonary embolus suspected clinically COMPARISON: None. Reference is made to plain radiograph of the chest, performed 8 hours earlier. FINDINGS: No filling defect is identified within the main or proximal pulmonary arteries. The thoracic aorta is nonaneurysmal and no dissection is present Panlobular emphysematous disease is identified with scarring in the right upper and lower lobes. The stomach is distended with retained gastric contents. Air opacified bowel within the soft tissues of the anterior abdominal wall, incompletely evaluated on the current study. IMPRESSION: No pulmonary embolus. No aortic dissection. Gastric distention and gastric contents. Air opacified bowel within the soft tissues of the anterior abdominal wall, incompletely evaluated on the current study. Review of Systems Constitutional: Constitutional: Reports no additional constitutional complaints Eyes: Eyes: Reports no additional eye complaints ENT: Reports system reviewed and no additional complaints, except as documented Cardiovascular: Cardiovascular: Reports no additional cardiovascular complaints Respiratory: Respiratory: Reports no additional respiratory complaints Gastrointestinal: Gastrointestinal: Reports no additional gastrointestinal complaints Musculoskeletal: Musculoskeletal: Reports no additional musculoskeletal complaints Neurologic: Reports system reviewed and no additional complaints, except as documented Psychiatric: Psychiatric: Reports no additional psychiatric complaints Endocrine: Endocrine: Reports no additional endocrine complaints Hematologic/Lymphatic: Hematologic/Lymphatic: Reports no additional hematologic/lymphatic complaints Allergic/Immunologic: Allergic/Immunologic: Reports no additional allergic/immunologic complaints Exam Const: General: cooperative, comfortable and no acute distress Orientation/consciousness: oriented to person, oriented to place and oriented to time HENMT: Head: normal to inspection Ears: hearing grossly normal bilaterally Eyes: General: appearance normal, both eyes and all related structures Neck: Neck: normal visual inspection Chest: Chest palpation & inspection: normal inspection of the chest Resp: Effort & Inspection: normal respiratory effort and able to speak in complete sentences Auscultation: no crackles, no rales, no rhonchi, no wheezes and lung sounds not diminished Other: No wheezing, no crackles Cardio: Jugular venous distension: no JVD GI: Inspection: normal to inspection Skin: General skin exam: normal color Neuro: General: oriented to person, oriented to place and oriented to time Extrem: General: normal to inspection Other: no edema Psych: Appearance: grossly normal Objective Data Vital Signs Vital Signs: Vital Signs - 24 hr 09/26/25 13:40 09/26/25 14:00 09/26/25 14:15 Temperature Pulse Rate 121 H 104 H 104 H Respiratory Rate 32 H 32 H Blood Pressure Pulse Oximetry 93 Oxygen Delivery BiPAP Oxygen Flow Rate Fraction of Inspired Oxygen 09/26/25 15:00 09/26/25 15:40 09/26/25 16:00 Temperature 36.6 C Pulse Rate 109 H 111 H 111 H Respiratory Rate 32 H 32 H 41 H Blood Pressure 130/78 Pulse Oximetry 96 96 94 Oxygen Delivery BiPAP BiPAP Oxygen Flow Rate Fraction of Inspired Oxygen 30 09/26/25 16:00 09/26/25 17:12 09/26/25 17:30 Temperature Pulse Rate 109 H 112 H 111 H Respiratory Rate 32 H Blood Pressure Pulse Oximetry 30 L Oxygen Delivery Autopap Oxygen Flow Rate Fraction of Inspired Oxygen 30 09/26/25 18:00 09/26/25 18:15 09/26/25 20:00 Temperature 36.7 C Pulse Rate 109 H 118 H 118 H Respiratory Rate 25 H 29 H Blood Pressure 143/102 H Pulse Oximetry 94 93 Oxygen Delivery Autopap Oxygen Flow Rate Fraction of Inspired Oxygen 09/26/25 20:00 09/26/25 20:00 09/26/25 20:04 Temperature Pulse Rate 110 H 108 H 105 H Respiratory Rate 28 H 31 H Blood Pressure Pulse Oximetry 96 95 Oxygen Delivery BiPAP BiPAP Oxygen Flow Rate Fraction of Inspired Oxygen 30 09/26/25 20:05 09/26/25 20:12 09/26/25 22:00 Temperature Pulse Rate 105 H 110 H 99 Respiratory Rate 31 H 28 H Blood Pressure Pulse Oximetry Oxygen Delivery Oxygen Flow Rate Fraction of Inspired Oxygen 09/26/25 23:56 09/27/25 00:00 09/27/25 00:00 Temperature 36.5 C Pulse Rate 95 97 88 Respiratory Rate 27 H 25 H Blood Pressure 104/74 Pulse Oximetry 93 96 Oxygen Delivery BiPAP Oxygen Flow Rate Fraction of Inspired Oxygen 30 09/27/25 00:08 09/27/25 00:08 09/27/25 00:14 Temperature Pulse Rate 93 93 95 Respiratory Rate 26 H 26 H 27 H Blood Pressure Pulse Oximetry 94 Oxygen Delivery BiPAP Oxygen Flow Rate Fraction of Inspired Oxygen 09/27/25 02:00 09/27/25 02:22 09/27/25 04:00 Temperature 36.6 C Pulse Rate 101 H 98 92 Respiratory Rate 26 H 23 H Blood Pressure 100/70 Pulse Oximetry 93 96 Oxygen Delivery BiPAP Oxygen Flow Rate Fraction of Inspired Oxygen 09/27/25 04:00 09/27/25 04:00 09/27/25 04:04 Temperature Pulse Rate 89 97 94 Respiratory Rate 25 H 24 H Blood Pressure Pulse Oximetry 96 Oxygen Delivery BiPAP Oxygen Flow Rate Fraction of Inspired Oxygen 30 09/27/25 04:12 09/27/25 04:12 09/27/25 06:00 Temperature Pulse Rate 95 92 100 Respiratory Rate 23 H 24 H Blood Pressure Pulse Oximetry 97 Oxygen Delivery BiPAP Oxygen Flow Rate Fraction of Inspired Oxygen 09/27/25 07:49 09/27/25 07:50 09/27/25 08:00 Temperature Pulse Rate 100 100 96 Respiratory Rate 23 H 26 H Blood Pressure Pulse Oximetry 96 94 Oxygen Delivery BiPAP Nasal Cannula Oxygen Flow Rate 2 Fraction of Inspired Oxygen 09/27/25 08:00 09/27/25 10:14 09/27/25 10:22 Temperature 36.7 C Pulse Rate 95 98 Respiratory Rate 26 H Blood Pressure 92/58 L 107/59 L Pulse Oximetry 95 Oxygen Delivery Oxygen Flow Rate Fraction of Inspired Oxygen 09/27/25 11:50 09/27/25 12:44 09/27/25 12:54 Temperature 36.8 C Pulse Rate 108 H 112 H 112 H Respiratory Rate 19 18 18 Blood Pressure 100/65 Pulse Oximetry 92 97 Oxygen Delivery Nasal Cannula Oxygen Flow Rate 5 Fraction of Inspired Oxygen 09/27/25 12:57 Temperature Pulse Rate 111 H Respiratory Rate 18 Blood Pressure Pulse Oximetry Oxygen Delivery Oxygen Flow Rate Fraction of Inspired Oxygen Intake/Output Intake/Output: Intake & Output 09/24/25 09/25/25 09/26/25 09/27/25 23:59 23:59 23:59 23:59 Intake Total 400 240 Output Total 2100 500 Balance -1700 -260 Meds/Results Medications: Active Medications Generic Name Dose Route Start Last Admin Trade Name Freq PRN Reason Stop Dose Admin Acetaminophen 650 mg 09/26/25 11:34 Acetaminophen 325 Mg Tablet PO Q4H PRN Mild Pain (1-3) or Fever Albuterol/Ipratropium 3 ml 09/26/25 20:00 09/27/25 12:44 Ipratropium 0.5 Mg/Albuterol Sulfate 2.5 Mg (Base) Ampul.Neb 3 Ml INHALATION 3 ml Q4HRT SILVINO Administration Empagliflozin 10 mg 09/27/25 09:00 09/27/25 10:17 Empagliflozin 10 Mg Tablet PO 10 mg DAILY SILVINO Administration Enoxaparin Sodium 40 mg 09/26/25 13:05 09/27/25 10:19 Enoxaparin 40 Mg/0.4 Ml Syringe SUB-Q 40 mg DAILY SILVINO Administration Furosemide 40 mg 09/26/25 15:00 09/27/25 09:06 Furosemide 40 Mg Tablet PO Not Given DAILY SILVINO Guaifenesin 1,200 mg 09/26/25 21:00 09/27/25 10:17 Guaifenesin 12 Hr 600 Mg Tabcr PO 1,200 mg Q12HR SILVINO Administration Ceftriaxone Sodium 1 gm/ 50 mls @ 100 mls/hr 09/27/25 09:00 09/27/25 10:18 Sodium Chloride IVPB 100 mls/hr QAM SILVINO Administration Azithromycin 500 mg/ Sodium 250 mls @ 250 mls/hr 09/26/25 18:00 09/26/25 18:30 Chloride IVPB Infused Q24H SILVINO Infusion Vancomycin HCl 1,500 mg in 500 mls @ 250 mls/hr 09/27/25 21:00 Vancomycin 1,500 Mg/Ns 500 Ml IVPB Q12H SILVINO Metoprolol Succinate 25 mg 09/27/25 09:00 09/27/25 10:22 Metoprolol Succinate Ext Rel 25 Mg Tabcr PO 25 mg QAM SILVINO Administration Mupirocin 1 applic 09/26/25 21:00 09/27/25 10:36 Mupirocin 2% Oint 22 Gm Tube EACH NARE 10/01/25 09:01 1 applic Q12HR SILVINO Administration Ondansetron HCl 4 mg 09/26/25 11:34 Ondansetron Inj 4 Mg/2 Ml Vial IV PUSH Q4H PRN Nausea Perflutren Lipid Microsphere 0 ml 09/26/25 15:03 Perflutren Lipid Microspheres 1.5 Ml Vial Diluted To 10 Ml Total Volume IV PUSH 09/29/25 15:04 ONCE PRN adequate visualization Protocol Prednisone 40 mg 09/27/25 12:00 Prednisone 20 Mg Tablet PO DAILY@0800 SILVINO Sacubitril/Valsartan 1 tab 09/26/25 21:00 09/27/25 10:24 Sacubitril/Valsartan 24-26 Mg Tablet PO 1 tab Q12HR SILVINO Administration Spironolactone 12.5 mg 09/27/25 09:00 09/27/25 09:06 Spironolactone 12.5 Mg Tablet PO Not Given DAILY [facility] Radiology Results: ITS Impressions Chest X-Ray 09/27/25 07:37 Impression: 1: Borderline heart size with probable mild interstitial edema. Atypical pneumonia less favored. Labs Labs: Laboratory Results - last 24 hr 09/26/25 09/26/25 09/26/25 13:21 15:32 16:54 WBC RBC Hgb Hct MCV MCH MCHC RDW Plt Count MPV Immature Gran % (Auto) Neut % (Auto) Lymph % (Auto) [place] % (Auto) Eos % (Auto) Baso % (Auto) Lymph # (Auto) [place] # (Auto) Eos # (Auto) Baso # (Auto) Abs Immat Gran (auto) Absolute Neuts (auto) Absolute Nucleated RBC Nucleated RBC % Puncture Site Left radial Left radial ABG pH 7.230 L* 7.280 L* ABG pCO2 80.8 H* 72.1 H* ABG pO2 84.1 67.5 L ABG PO2/FiO2 Ratio 2.10 2.25 ABG HCO3 33.1 H 33.1 H ABG O2 Saturation 93.9 L 90.4 L ABG O2 Content 20.2 19.1 ABG Base Excess 2.4 3.7 A-a Gradient 220.2 157.4 Oxyhemoglobin 90.6 88.2 L Total Hemoglobin 15.8 15.4 O2 Delivery Device Bipap Non-invasive vent O2 Liters/Min Not Reportable 3.0 Vent Rate 18 FiO2 40 30 Expiratory Pressure 8 8 Inspiratory Pressure 15 20 Sodium Potassium Chloride Carbon Dioxide Anion Gap BUN Creatinine Estim Creat Clear Calc Estimated GFR Glucose Calcium Magnesium C-Reactive Protein NT-Pro-B Natriuret Pep Procalcitonin TSH Free T4 Urine Color Yellow Urine Appearance Clear Urine pH 5.5 Ur Specific [place] 1.034 Urine Protein Negative Urine Glucose (UA) 3+ H Urine Ketones Negative Ur Blood (Man) Negative Urine Nitrate Negative Urine Bilirubin Negative Urine Urobilinogen 0.2 Leukocyte Esterase Rfl Negative Nasal MRSA (PCR) Detected A* 09/27/25 09/27/25 05:16 06:57 WBC 9.6 RBC 4.59 L Hgb 13.8 L Hct 43.8 MCV 95.4 MCH 30.1 MCHC 31.5 L RDW 14.4 Plt Count 256 MPV 9.8 Immature Gran % (Auto) 0.3 Neut % (Auto) 85.9 H Lymph % (Auto) 8.6 L [place] % (Auto) 5.1 Eos % (Auto) 0.0 Baso % (Auto) 0.1 L Lymph # (Auto) 0.83 L [place] # (Auto) 0.5 Eos # (Auto) 0.0 Baso # (Auto) 0.0 Abs Immat Gran (auto) 0.03 Absolute Neuts (auto) 8.2 H Absolute Nucleated RBC 0.000 Nucleated RBC % 0.0 Puncture Site Right radial ABG pH 7.349 L ABG pCO2 63.1 H* ABG pO2 70.8 L ABG PO2/FiO2 Ratio 2.36 ABG HCO3 34.0 H ABG O2 Saturation 93.0 L ABG O2 Content 18.6 ABG Base Excess 6.2 A-a Gradient 69.0 Oxyhemoglobin 91.3 Total Hemoglobin 14.5 O2 Delivery Device Non-invasive vent O2 Liters/Min Not Reportable Vent Rate 20 FiO2 30 Expiratory Pressure 5 Inspiratory Pressure Not Reportable Sodium 135 L Potassium 5.1 H Chloride 96 L Carbon Dioxide 36 H Anion Gap 3 L BUN 29 H Creatinine 0.79 Estim Creat Clear Calc 111 Estimated GFR > 60 Glucose 120 H Calcium 9.1 Magnesium 2.4 H C-Reactive Protein 7.5 H NT-Pro-B Natriuret Pep 1440 H Procalcitonin 0.1 TSH 0.165 L Free T4 1.44 Urine Color Urine Appearance Urine pH Ur Specific [place] Urine Protein Urine Glucose (UA) Urine Ketones Ur Blood (Man) Urine Nitrate Urine Bilirubin Urine Urobilinogen Leukocyte Esterase Rfl Nasal MRSA (PCR)
--- NOTE | 2025-09-27 14:48 | PM.IMPN ---
Progress Note: A&P Assessment and Plan (1) Acute on chronic respiratory failure with hypoxia and hypercapnia: Code(s): J96.21 - Acute and chronic respiratory failure with hypoxia; J96.22 - Acute and chronic respiratory failure with hypercapnia Status: Acute Assessment and Plan: Patient with history of COPD with documented severe emphysema on recent chest x-ray 09/25. Initial ABG PH 7.22, pCO2 65.5, HC03 26.2, O2 sat 93. -pulmonology consult. Appreciate recommendations and assistance on this case -repeat chest x-ray on 09/27 -repeat ABG on 09/27 - DuoNebs Q4H jesus - Solu-Medrol 40 mg IV Q 6 - home medications: Albuterol inhaler, Combivent, Advair - guaifenesin 1200 mg p.o. b.i.d. - started on ceftriaxone and azithromycin on 09/26 - AVAPS mode rate of 20, tidal volume 550, EPAP 5, minimal inspiratory pressure 6, maximal inspiratory pressure 25, inspiratory time 0.8, rise of 1 and 30% FiO2. Patient said these settings were much more comfortable. Will contnue current treatment and monitor closely. (2) Pneumonia: Qualifiers: Laterality: bilateral Lung location: unspecified part of lung Pneumonia type: due to unspecified organism Qualified Code(s): J18.9 - Pneumonia, unspecified organism Code(s): J18.9 - Pneumonia, unspecified organism Status: Acute Assessment and Plan: Patient presents with increased shortness of breath and cough present for the past week. Chest x-ray showed COPD changes with scattered bilateral infiltrates. WBC 16.6. - started azithromycin and Rocephin on 09/26 - MRSA PCR pending - Viral PCR pending - sputum culture -currently on BiPAP Will continue with antibiotics. (3) Nonischemic cardiomyopathy: Code(s): I42.8 - Other cardiomyopathies Status: Chronic Assessment and Plan: Diagnosed in December 2024. Initial echo with EF of 30-35%. Cardiac catheterization on 02/07/2025 showed no significant coronary disease. Most recent echo 02/27/24 at outside facility (on [facility] on patient's phone): EF 40-45% (improved from 30-35%), LV now normal, RV mildly dilated, and no significant valvular disease. - BNP 1989 - 40 mg IVP furosemide x1 - repeat with 20 mg IVP furosemide x1 on 09/27 -updated echo ordered - repeat BNP in a.m. - home meds Entresto, spironolactone, metoprolol, Jardiance, Lasix 40 mg PO - monitor I&Os and daily weights - trend renal function Plan Diet: NPO GI prophylaxis: NA DVT prophylaxis: Lovenox lines/drains: PIV Fluids: NA Code status: Full Subjective Date/time seen: 09/27/25 14:48 Interval history: Patient was seen during the morning rounds today. Requiring Bipap. Mild sob, no chest pain. Review of Systems Review of Systems: All systems reviewed & are unremarkable except as noted in HPI and below Exam Narrative: GENERAL: Drowsy on BiPAP. HEAD: Normocephalic, atraumatic. EYES: PERRLA. Conjunctivae clear. NOSE: Normal no drainage. THROAT: Pharynx clear, no exudate. NECK: Trachea midline. No adenopathy, no masses. RESPIRATORY: Airway patent. Diminished throughout. Occasional wet sounding cough without bringing up mucus. Mildly tachypneic in the mid 20s CARDIOVASCULAR: Regular rate and rhythm GASTROINTESTINAL: Abdomen is soft and nontender. No organomegaly. Bowel sounds normal in all quadrants. GENITOURINARY: Defer MUSCULOSKELETAL: Moves all extremities. No gross deformities. No calf tenderness. SKIN: Warm, dry, normal color. NEURO: A&O X4. Speech clear. Drowsy but speaking in full sentences PSYCHIATRIC: Normal interaction Objective Data Vital Signs Vital Signs: Vital Signs - 24 hr 09/26/25 15:00 09/26/25 15:40 09/26/25 16:00 Temperature 36.6 C Pulse Rate 109 H 111 H 111 H Respiratory Rate 32 H 32 H 41 H Blood Pressure 130/78 Pulse Oximetry 96 96 94 Oxygen Delivery BiPAP BiPAP Oxygen Flow Rate Fraction of Inspired Oxygen 30 09/26/25 16:00 09/26/25 17:12 09/26/25 17:30 Temperature Pulse Rate 109 H 112 H 111 H Respiratory Rate 32 H Blood Pressure Pulse Oximetry 30 L Oxygen Delivery Autopap Oxygen Flow Rate Fraction of Inspired Oxygen 30 09/26/25 18:00 09/26/25 18:15 09/26/25 20:00 Temperature 36.7 C Pulse Rate 109 H 118 H 118 H Respiratory Rate 25 H 29 H Blood Pressure 143/102 H Pulse Oximetry 94 93 Oxygen Delivery Autopap Oxygen Flow Rate Fraction of Inspired Oxygen 09/26/25 20:00 09/26/25 20:00 09/26/25 20:04 Temperature Pulse Rate 110 H 108 H 105 H Respiratory Rate 28 H 31 H Blood Pressure Pulse Oximetry 96 95 Oxygen Delivery BiPAP BiPAP Oxygen Flow Rate Fraction of Inspired Oxygen 30 09/26/25 20:05 09/26/25 20:12 09/26/25 22:00 Temperature Pulse Rate 105 H 110 H 99 Respiratory Rate 31 H 28 H Blood Pressure Pulse Oximetry Oxygen Delivery Oxygen Flow Rate Fraction of Inspired Oxygen 09/26/25 23:56 09/27/25 00:00 09/27/25 00:00 Temperature 36.5 C Pulse Rate 95 97 88 Respiratory Rate 27 H 25 H Blood Pressure 104/74 Pulse Oximetry 93 96 Oxygen Delivery BiPAP Oxygen Flow Rate Fraction of Inspired Oxygen 30 09/27/25 00:08 09/27/25 00:08 09/27/25 00:14 Temperature Pulse Rate 93 93 95 Respiratory Rate 26 H 26 H 27 H Blood Pressure Pulse Oximetry 94 Oxygen Delivery BiPAP Oxygen Flow Rate Fraction of Inspired Oxygen 09/27/25 02:00 09/27/25 02:22 09/27/25 04:00 Temperature 36.6 C Pulse Rate 101 H 98 92 Respiratory Rate 26 H 23 H Blood Pressure 100/70 Pulse Oximetry 93 96 Oxygen Delivery BiPAP Oxygen Flow Rate Fraction of Inspired Oxygen 09/27/25 04:00 09/27/25 04:00 09/27/25 04:04 Temperature Pulse Rate 89 97 94 Respiratory Rate 25 H 24 H Blood Pressure Pulse Oximetry 96 Oxygen Delivery BiPAP Oxygen Flow Rate Fraction of Inspired Oxygen 30 09/27/25 04:12 09/27/25 04:12 09/27/25 06:00 Temperature Pulse Rate 95 92 100 Respiratory Rate 23 H 24 H Blood Pressure Pulse Oximetry 97 Oxygen Delivery BiPAP Oxygen Flow Rate Fraction of Inspired Oxygen 09/27/25 07:49 09/27/25 07:50 09/27/25 08:00 Temperature Pulse Rate 100 100 96 Respiratory Rate 23 H 26 H Blood Pressure Pulse Oximetry 96 94 Oxygen Delivery BiPAP Nasal Cannula Oxygen Flow Rate 2 Fraction of Inspired Oxygen 09/27/25 08:00 09/27/25 10:14 09/27/25 10:22 Temperature 36.7 C Pulse Rate 95 98 Respiratory Rate 26 H Blood Pressure 92/58 L 107/59 L Pulse Oximetry 95 Oxygen Delivery Oxygen Flow Rate Fraction of Inspired Oxygen 09/27/25 11:50 09/27/25 12:44 09/27/25 12:54 Temperature 36.8 C Pulse Rate 108 H 112 H 112 H Respiratory Rate 19 18 18 Blood Pressure 100/65 Pulse Oximetry 92 97 Oxygen Delivery Nasal Cannula Oxygen Flow Rate 5 Fraction of Inspired Oxygen 09/27/25 12:57 Temperature Pulse Rate 111 H Respiratory Rate 18 Blood Pressure Pulse Oximetry Oxygen Delivery Oxygen Flow Rate Fraction of Inspired Oxygen Intake/Output Intake/Output: Intake & Output 09/24/25 09/25/25 09/26/25 09/27/25 23:59 23:59 23:59 23:59 Intake Total 400 240 Output Total 2100 500 Balance -1700 -260 Meds/Results Medications: Active Medications Generic Name Dose Route Start Last Admin Trade Name Freq PRN Reason Stop Dose Admin Acetaminophen 650 mg 09/26/25 11:34 Acetaminophen 325 Mg Tablet PO Q4H PRN Mild Pain (1-3) or Fever Albuterol/Ipratropium 3 ml 09/26/25 20:00 09/27/25 12:44 Ipratropium 0.5 Mg/Albuterol Sulfate 2.5 Mg (Base) Ampul.Neb 3 Ml INHALATION 3 ml Q4HRT JESUS Administration Empagliflozin 10 mg 09/27/25 09:00 09/27/25 10:17 Empagliflozin 10 Mg Tablet PO 10 mg DAILY JESUS Administration Enoxaparin Sodium 40 mg 09/26/25 13:05 09/27/25 10:19 Enoxaparin 40 Mg/0.4 Ml Syringe SUB-Q 40 mg DAILY JESUS Administration Furosemide 40 mg 09/26/25 15:00 09/27/25 09:06 Furosemide 40 Mg Tablet PO Not Given DAILY JESUS Guaifenesin 1,200 mg 09/26/25 21:00 09/27/25 10:17 Guaifenesin 12 Hr 600 Mg Tabcr PO 1,200 mg Q12HR JESUS Administration Ceftriaxone Sodium 1 gm/ 50 mls @ 100 mls/hr 09/27/25 09:00 09/27/25 10:18 Sodium Chloride IVPB 100 mls/hr QAM JESUS Administration Azithromycin 500 mg/ Sodium 250 mls @ 250 mls/hr 09/26/25 18:00 09/26/25 18:30 Chloride IVPB Infused Q24H JESUS Infusion Vancomycin HCl 1,500 mg in 500 mls @ 250 mls/hr 09/27/25 21:00 Vancomycin 1,500 Mg/Ns 500 Ml IVPB Q12H JESUS Metoprolol Succinate 25 mg 09/27/25 09:00 09/27/25 10:22 Metoprolol Succinate Ext Rel 25 Mg Tabcr PO 25 mg QAM JESUS Administration Mupirocin 1 applic 09/26/25 21:00 09/27/25 10:36 Mupirocin 2% Oint 22 Gm Tube EACH NARE 10/01/25 09:01 1 applic Q12HR JESUS Administration Ondansetron HCl 4 mg 09/26/25 11:34 Ondansetron Inj 4 Mg/2 Ml Vial IV PUSH Q4H PRN Nausea Perflutren Lipid Microsphere 0 ml 09/26/25 15:03 Perflutren Lipid Microspheres 1.5 Ml Vial Diluted To 10 Ml Total Volume IV PUSH 09/29/25 15:04 ONCE PRN adequate visualization Protocol Prednisone 40 mg 09/27/25 12:00 09/27/25 14:01 Prednisone 20 Mg Tablet PO 40 mg DAILY@0800 JESUS Administration Sacubitril/Valsartan 1 tab 09/26/25 21:00 09/27/25 10:24 Sacubitril/Valsartan 24-26 Mg Tablet PO 1 tab Q12HR JESUS Administration Spironolactone 12.5 mg 09/27/25 09:00 09/27/25 09:06 Spironolactone 12.5 Mg Tablet PO Not Given DAILY [facility] Radiology Results: ITS Impressions Chest X-Ray 09/27/25 07:37 Impression: 1: Borderline heart size with probable mild interstitial edema. Atypical pneumonia less favored. Labs Labs: Laboratory Results - last 24 hr 09/26/25 09/26/25 09/27/25 15:32 16:54 05:16 WBC RBC Hgb Hct MCV MCH MCHC RDW Plt Count MPV Immature Gran % (Auto) Neut % (Auto) Lymph % (Auto) [place] % (Auto) Eos % (Auto) Baso % (Auto) Lymph # (Auto) [place] # (Auto) Eos # (Auto) Baso # (Auto) Abs Immat Gran (auto) Absolute Neuts (auto) Absolute Nucleated RBC Nucleated RBC % Puncture Site Left radial Right radial ABG pH 7.280 L* 7.349 L ABG pCO2 72.1 H* 63.1 H* ABG pO2 67.5 L 70.8 L ABG PO2/FiO2 Ratio 2.25 2.36 ABG HCO3 33.1 H 34.0 H ABG O2 Saturation 90.4 L 93.0 L ABG O2 Content 19.1 18.6 ABG Base Excess 3.7 6.2 A-a Gradient 157.4 69.0 Oxyhemoglobin 88.2 L 91.3 Total Hemoglobin 15.4 14.5 O2 Delivery Device Non-invasive vent Non-invasive vent O2 Liters/Min 3.0 Not Reportable Vent Rate 18 20 FiO2 30 30 Expiratory Pressure 8 5 Inspiratory Pressure 20 Not Reportable Sodium Potassium Chloride Carbon Dioxide Anion Gap BUN Creatinine Estim Creat Clear Calc Estimated GFR Glucose Calcium Magnesium C-Reactive Protein NT-Pro-B Natriuret Pep Procalcitonin TSH Free T4 Urine Color Yellow Urine Appearance Clear Urine pH 5.5 Ur Specific [place] 1.034 Urine Protein Negative Urine Glucose (UA) 3+ H Urine Ketones Negative Ur Blood (Man) Negative Urine Nitrate Negative Urine Bilirubin Negative Urine Urobilinogen 0.2 Leukocyte Esterase Rfl Negative Nasal MRSA (PCR) Detected A* 09/27/25 06:57 WBC 9.6 RBC 4.59 L Hgb 13.8 L Hct 43.8 MCV 95.4 MCH 30.1 MCHC 31.5 L RDW 14.4 Plt Count 256 MPV 9.8 Immature Gran % (Auto) 0.3 Neut % (Auto) 85.9 H Lymph % (Auto) 8.6 L [place] % (Auto) 5.1 Eos % (Auto) 0.0 Baso % (Auto) 0.1 L Lymph # (Auto) 0.83 L [place] # (Auto) 0.5 Eos # (Auto) 0.0 Baso # (Auto) 0.0 Abs Immat Gran (auto) 0.03 Absolute Neuts (auto) 8.2 H Absolute Nucleated RBC 0.000 Nucleated RBC % 0.0 Puncture Site ABG pH ABG pCO2 ABG pO2 ABG PO2/FiO2 Ratio ABG HCO3 ABG O2 Saturation ABG O2 Content ABG Base Excess A-a Gradient Oxyhemoglobin Total Hemoglobin O2 Delivery Device O2 Liters/Min Vent Rate FiO2 Expiratory Pressure Inspiratory Pressure Sodium 135 L Potassium 5.1 H Chloride 96 L Carbon Dioxide 36 H Anion Gap 3 L BUN 29 H Creatinine 0.79 Estim Creat Clear Calc 111 Estimated GFR > 60 Glucose 120 H Calcium 9.1 Magnesium 2.4 H C-Reactive Protein 7.5 H NT-Pro-B Natriuret Pep 1440 H Procalcitonin 0.1 TSH 0.165 L Free T4 1.44 Urine Color Urine Appearance Urine pH Ur Specific [place] Urine Protein Urine Glucose (UA) Urine Ketones Ur Blood (Man) Urine Nitrate Urine Bilirubin Urine Urobilinogen Leukocyte Esterase Rfl Nasal MRSA (PCR) Quality VTE Prophylaxis VTE prophylaxis: pharmacologic ordered
[2025-09-27] MEDS: AZITHROMYCIN IV 500 MG in SODIUM CHLORIDE 0.9% IV 250 ML IVPB (18:20)
[2025-09-27] MEDS: VANCOMYCIN 1,500 MG/NS 500 ML 1,500 MG/500 ML BAG 250 MG IVPB (20:25)
[2025-09-28] VITALS (29 sets, daily range): BP systolic 95–112; BP diastolic 63–77; PULSE 78–101; RESP 16–25; TEMP 36.3–36.8; O2SAT 92–98
[2025-09-28] MEDS: BENZONATATE 100 MG CAPSULE 200 MG PO ×3 (01:41→18:45)
--- NOTE | 2025-09-28 01:55 | PCRCNOTE ---
0000 neb tx was omitted due to oximetry study
[2025-09-28] MEDS: IPRATROPIUM 0.5 MG/ALBUTEROL SULFATE 2.5 MG (BASE) AMPUL.NEB 3 ML INHALATION ×5 (04:51→20:06)
[2025-09-28 05:08] LABS: Alveolar/Arterial O2 Gradient 64.3 mmHg; Carboxyhemoglobin 1.1 % THb (0-2.0); Fractional Inspired Oxygen 28 %; HCO3 ABG 29.3 mEq/l (22.0-26.0); Methemoglobin ABG 0.1 %THb (0-1.5); Oxygen Content ABG 18.3 %vol (16.0-22.0); Oxygen Saturation ABG 92.1 % (95.0-100.0); PCO2 ABG 56.9 mmHg (35.0-45.0); PO2 ABG 68.2 mmHg (80.0-100.0); PO2 FiO2 Ratio Arterial Blood 2.44 %; Reduced Hemoglobin 7.8 %THb (0-5.0)
[2025-09-28 05:13] LABS: Estimated CRCL calculation 117 ml/min; Estimated Glomerular Filt Rate > 60
[2025-09-28 05:14] LABS: Liters per Minute 2.0 LPM; Modified Allen's Test Pass; Site Drawn LEFT RADIAL
[2025-09-28] MEDS: guaiFENesin 12 HR 600 MG TABCR 1200 MG PO ×2 (08:31→21:01)
[2025-09-28] MEDS: METOPROLOL SUCCINATE EXT REL 25 MG TABCR PO (08:32)
[2025-09-28] MEDS: EMPAGLIFLOZIN 10 MG TABLET PO (08:32)
[2025-09-28] MEDS: SACUBITRIL/VALSARTAN 24-26 MG TABLET 1 TAB PO ×2 (08:32→21:01)
[2025-09-28] MEDS: MUPIROCIN 2% OINT 22 GM TUBE 1 APPLIC EACH NARE ×2 (08:33→21:02)
[2025-09-28] MEDS: ENOXAPARIN 40 MG/0.4 ML SYRINGE SUB-Q (08:33)
[2025-09-28] MEDS: cefTRIAXone 1 GM in SODIUM CHLORIDE 0.9% IV 50 ML 100 ML IVPB (08:33)
[2025-09-28] MEDS: VANCOMYCIN 1,500 MG/NS 500 ML 1,500 MG/500 ML BAG 250 MG IVPB ×2 (08:48→21:53)
--- NOTE | 2025-09-28 10:34 | P.PNIM_ITS ---
Progress Note: A&P Assessment and Plan (1) Acute on chronic respiratory failure with hypoxia and hypercapnia: Code(s): J96.21 - Acute and chronic respiratory failure with hypoxia; J96.22 - Acute and chronic respiratory failure with hypercapnia Status: Acute Assessment and Plan: Patient with history of COPD with documented severe emphysema on recent chest x- ray 09/25. Initial ABG PH 7.22, pCO2 65.5, HC03 26.2, O2 sat 93. -pulmonology consult. Appreciate recommendations and assistance on this case -repeat chest x-ray on 09/27 -repeat ABG on 09/27 - DuoNebs Q4H jesus - Solu-Medrol 40 mg IV Q 6 - home medications: Albuterol inhaler, Combivent, Advair - guaifenesin 1200 mg p.o. b.i.d. - started on ceftriaxone and azithromycin on 09/26 - AVAPS mode rate of 20, tidal volume 550, EPAP 5, minimal inspiratory pressure 6, maximal inspiratory pressure 25, inspiratory time 0.8, rise of 1 and 30% FiO2. Patient said these settings were much more comfortable. Will contnue current treatment and monitor closely. 09/28/2025 Patient is gradually getting better. Will continue current treatment monitor closely. (2) Pneumonia: Qualifiers: Laterality: bilateral Lung location: unspecified part of lung Pneumonia type: due to unspecified organism Qualified Code(s): J18.9 - Pneumonia, unspecified organism Code(s): J18.9 - Pneumonia, unspecified organism Status: Acute Assessment and Plan: Patient presents with increased shortness of breath and cough present for the past week. Chest x-ray showed COPD changes with scattered bilateral infiltrates. WBC 16.6. - started azithromycin and Rocephin on 09/26 - MRSA PCR pending - Viral PCR pending - sputum culture -currently on BiPAP Will continue with antibiotics. (3) Nonischemic cardiomyopathy: Code(s): I42.8 - Other cardiomyopathies Status: Chronic Assessment and Plan: Diagnosed in December 2024. Initial echo with EF of 30-35%. Cardiac catheterization on 02/07/2025 showed no significant coronary disease. Most recent echo 02/27/24 at outside facility (on [facility] on patient's phone): EF 40- 45% (improved from 30-35%), LV now normal, RV mildly dilated, and no significant valvular disease. - BNP 1989 - 40 mg IVP furosemide x1 - repeat with 20 mg IVP furosemide x1 on 09/27 -updated echo ordered - repeat BNP in a.m. - home meds Entresto, spironolactone, metoprolol, Jardiance, Lasix 40 mg PO - monitor I&Os and daily weights - trend renal function Plan Diet: As tolerated GI prophylaxis: NA DVT prophylaxis: Lovenox lines/drains: PIV Fluids: NA Code status: Full Subjective Date/time seen: 09/28/25 10:34 Interval history: Patient was seen during the morning rounds today. No new overnight complaints Still Requiring Bipap. Mild sob, no chest pain. Review of Systems Review of Systems: All systems reviewed & are unremarkable except as noted in HPI and below Exam Narrative: GENERAL: Drowsy on BiPAP. HEAD: Normocephalic, atraumatic. EYES: PERRLA. Conjunctivae clear. NOSE: Normal no drainage. THROAT: Pharynx clear, no exudate. NECK: Trachea midline. No adenopathy, no masses. RESPIRATORY: Air entry is better CARDIOVASCULAR: Regular rate and rhythm GASTROINTESTINAL: Abdomen is soft and nontender. No organomegaly. Bowel sounds normal in all quadrants. GENITOURINARY: Defer MUSCULOSKELETAL: Moves all extremities. No gross deformities. No calf tenderness. SKIN: Warm, dry, normal color. NEURO: A&O X4. Speech clear. Drowsy but speaking in full sentences PSYCHIATRIC: Normal interaction Objective Data Vital Signs Vital Signs: Vital Signs - 24 hr 09/27/25 11:50 09/27/25 12:00 09/27/25 12:00 Temperature 36.8 C Pulse Rate 108 H 116 H Respiratory Rate 19 Blood Pressure 100/65 Pulse Oximetry 92 94 Oxygen Delivery Nasal Cannula Oxygen Flow Rate 5 09/27/25 12:44 09/27/25 12:54 09/27/25 12:57 Temperature Pulse Rate 112 H 112 H 111 H Respiratory Rate 18 18 18 Blood Pressure Pulse Oximetry 97 Oxygen Delivery Nasal Cannula Oxygen Flow Rate 5 09/27/25 14:00 09/27/25 16:00 09/27/25 16:00 Temperature 36.8 C Pulse Rate 109 H 112 H 112 H Respiratory Rate 21 H Blood Pressure 107/66 Pulse Oximetry 91 Oxygen Delivery Oxygen Flow Rate 09/27/25 16:00 09/27/25 16:09 09/27/25 16:17 Temperature Pulse Rate 108 H 108 H Respiratory Rate 18 18 Blood Pressure Pulse Oximetry 93 Oxygen Delivery Nasal Cannula Oxygen Flow Rate 3 09/27/25 16:18 09/27/25 18:00 09/27/25 19:57 Temperature 36.9 C Pulse Rate 108 H 87 101 H Respiratory Rate 18 18 Blood Pressure 95/66 L Pulse Oximetry 92 95 Oxygen Delivery Oxygen Flow Rate 3 09/27/25 20:00 09/27/25 20:25 09/27/25 20:56 Temperature Pulse Rate 100 96 Respiratory Rate 18 Blood Pressure Pulse Oximetry 94 Oxygen Delivery Nasal Cannula Oxygen Flow Rate 3 09/27/25 20:58 09/27/25 21:02 09/27/25 22:00 Temperature Pulse Rate 100 89 Respiratory Rate 18 Blood Pressure Pulse Oximetry 96 Oxygen Delivery Nasal Cannula Oxygen Flow Rate 3 09/27/25 23:31 09/28/25 00:00 09/28/25 00:10 Temperature 36.9 C Pulse Rate 107 H 87 Respiratory Rate 20 Blood Pressure 122/90 Pulse Oximetry 96 95 Oxygen Delivery Nasal Cannula Oxygen Flow Rate 2 09/28/25 01:30 09/28/25 02:00 09/28/25 04:00 Temperature Pulse Rate 91 88 Respiratory Rate Blood Pressure Pulse Oximetry 93 Oxygen Delivery Nasal Cannula Oxygen Flow Rate 2 09/28/25 04:00 09/28/25 04:05 09/28/25 05:00 Temperature 36.8 C Pulse Rate 86 78 Respiratory Rate 18 18 Blood Pressure 101/67 Pulse Oximetry 96 92 Oxygen Delivery Nasal Cannula Oxygen Flow Rate 2 09/28/25 06:00 09/28/25 07:14 09/28/25 07:15 Temperature Pulse Rate 92 101 H Respiratory Rate 18 Blood Pressure Pulse Oximetry 97 Oxygen Delivery Nasal Cannula Oxygen Flow Rate 3.5 09/28/25 08:00 09/28/25 08:32 Temperature 36.4 C Pulse Rate 86 93 Respiratory Rate 16 Blood Pressure 95/63 L Pulse Oximetry 96 Oxygen Delivery Oxygen Flow Rate Intake/Output Intake/Output: Intake & Output 09/25/25 09/26/25 09/27/25 09/28/25 23:59 23:59 23:59 23:59 Intake Total 400 2020 1260 Output Total 2100 500 2300 Balance -1700 1520 -1040 Meds/Results Medications: Active Medications Generic Name Dose Route Start Last Admin Trade Name Freq PRN Reason Stop Dose Admin Acetaminophen 650 mg 09/26/25 11:34 Acetaminophen 325 Mg Tablet PO Q4H PRN Mild Pain (1-3) or Fever Albuterol/Ipratropium 3 ml 09/26/25 20:00 09/28/25 07:13 Ipratropium 0.5 Mg/Albuterol Sulfate 2.5 Mg (Base) Ampul.Neb 3 Ml INHALATION 3 ml Q4HRT JESUS Administration Benzonatate 200 mg 09/28/25 01:25 09/28/25 08:32 Benzonatate 100 Mg Capsule PO 200 mg TID PRN Administration Cough Empagliflozin 10 mg 09/27/25 09:00 09/28/25 08:32 Empagliflozin 10 Mg Tablet PO 10 mg DAILY JESUS Administration Enoxaparin Sodium 40 mg 09/26/25 13:05 09/28/25 08:33 Enoxaparin 40 Mg/0.4 Ml Syringe SUB-Q 40 mg DAILY JESUS Administration Furosemide 40 mg 09/26/25 15:00 09/28/25 08:49 Furosemide 40 Mg Tablet PO Not Given DAILY JESUS Guaifenesin 1,200 mg 09/26/25 21:00 09/28/25 08:31 Guaifenesin 12 Hr 600 Mg Tabcr PO 1,200 mg Q12HR JESUS Administration Ceftriaxone Sodium 1 gm/ 50 mls @ 100 mls/hr 09/27/25 09:00 09/28/25 08:33 Sodium Chloride IVPB 100 mls/hr QAM JESUS Administration Azithromycin 500 mg/ Sodium 250 mls @ 250 mls/hr 09/26/25 18:00 09/27/25 19:20 Chloride IVPB Infused Q24H JESUS Infusion Vancomycin HCl 1,500 mg in 500 mls @ 250 mls/hr 09/27/25 21:00 09/28/25 08:48 Vancomycin 1,500 Mg/Ns 500 Ml IVPB 250 mls/hr Q12H JESUS Administration Metoprolol Succinate 25 mg 09/27/25 09:00 09/28/25 08:32 Metoprolol Succinate Ext Rel 25 Mg Tabcr PO 25 mg QAM JESUS Administration Mupirocin 1 applic 09/26/25 21:00 09/28/25 08:33 Mupirocin 2% Oint 22 Gm Tube EACH NARE 10/01/25 09:01 1 applic Q12HR JESUS Administration Ondansetron HCl 4 mg 09/26/25 11:34 Ondansetron Inj 4 Mg/2 Ml Vial IV PUSH Q4H PRN Nausea Perflutren Lipid Microsphere 0 ml 09/26/25 15:03 Perflutren Lipid Microspheres 1.5 Ml Vial Diluted To 10 Ml Total Volume IV PUSH 09/29/25 15:04 ONCE PRN adequate visualization Protocol Prednisone 40 mg 09/27/25 12:00 09/28/25 08:32 Prednisone 20 Mg Tablet PO 40 mg DAILY@0800 JESUS Administration Sacubitril/Valsartan 1 tab 09/26/25 21:00 09/28/25 08:32 Sacubitril/Valsartan 24-26 Mg Tablet PO 1 tab Q12HR JESUS Administration Spironolactone 12.5 mg 09/27/25 09:00 09/28/25 08:49 Spironolactone 12.5 Mg Tablet PO Not Given DAILY [facility] Radiology Results: ITS Impressions Chest X-Ray 09/27/25 07:37 Impression: 1: Borderline heart size with probable mild interstitial edema. Atypical pneumonia less favored. Labs Labs: Laboratory Results - last 24 hr 09/26/25 09/27/25 09/28/25 17:16 06:57 04:48 Puncture Site ABG pH ABG pCO2 ABG pO2 ABG PO2/FiO2 Ratio ABG HCO3 ABG O2 Saturation ABG O2 Content ABG Base Excess A-a Gradient Oxyhemoglobin Carboxyhemoglobin Methemoglobin Reduced Hemoglobin Total Hemoglobin O2 Delivery Device O2 Liters/Min FiO2 Creatinine 0.75 Estim Creat Clear Calc 117 Estimated GFR > 60 [id number] 238 H Procalcitonin 0.1 Chlamy pneumoniae PCR Not detected Adenovirus (PCR) Not detected B. pertussis DNA (PCR) Not detected B.parapertussis DNA PCR Not detected Coronavirus OC43 (PCR) Not detected Coronavirus HKU1 (PCR) Not detected Coronavirus 229E (PCR) Not detected Coronavirus NL63 (PCR) Not detected Human Metapneumovir PCR Not detected Influenza A (H1) PCR Not detected Influ A (H1/09) PCR Not detected Influenza A (H3) PCR Not detected Influenza Type A (PCR) Not detected Influenza Type B (PCR) Not detected M. pneumoniae (PCR) Not detected Parainfluenza 1 (PCR) Not detected Parainfluenza 2 (PCR) Not detected Parainfluenza 3 (PCR) Not detected Parainfluenza 4 (PCR) Not detected RSV (PCR) Not detected Entero/Rhino (PCR) Not detected SARS-CoV-2 (PCR) Not detected 09/28/25 04:52 Puncture Site Left radial ABG pH 7.330 L ABG pCO2 56.9 H ABG pO2 68.2 L ABG PO2/FiO2 Ratio 2.44 ABG HCO3 29.3 H ABG O2 Saturation 92.1 L ABG O2 Content 18.3 ABG Base Excess 2.0 A-a Gradient 64.3 Oxyhemoglobin 91.0 Carboxyhemoglobin 1.1 Methemoglobin 0.1 Reduced Hemoglobin 7.8 H Total Hemoglobin 14.3 O2 Delivery Device Nasal cannula O2 Liters/Min 2.0 FiO2 28 Creatinine Estim Creat Clear Calc Estimated GFR [id number] Procalcitonin Chlamy pneumoniae PCR Adenovirus (PCR) B. pertussis DNA (PCR) B.parapertussis DNA PCR Coronavirus OC43 (PCR) Coronavirus HKU1 (PCR) Coronavirus 229E (PCR) Coronavirus NL63 (PCR) Human Metapneumovir PCR Influenza A (H1) PCR Influ A (H1/09) PCR Influenza A (H3) PCR Influenza Type A (PCR) Influenza Type B (PCR) M. pneumoniae (PCR) Parainfluenza 1 (PCR) Parainfluenza 2 (PCR) Parainfluenza 3 (PCR) Parainfluenza 4 (PCR) RSV (PCR) Entero/Rhino (PCR) SARS-CoV-2 (PCR) Quality VTE Prophylaxis VTE prophylaxis: pharmacologic ordered
[2025-09-28] MEDS: AZITHROMYCIN IV 500 MG in SODIUM CHLORIDE 0.9% IV 250 ML IVPB (18:44)
[2025-09-29] VITALS (33 sets, daily range): BP systolic 92–112; BP diastolic 60–74; PULSE 77–105; RESP 20–25; TEMP 36.3–36.8; O2SAT 91–99
[2025-09-29] MEDS: IPRATROPIUM 0.5 MG/ALBUTEROL SULFATE 2.5 MG (BASE) AMPUL.NEB 3 ML INHALATION ×7 (00:41→23:00)
--- NOTE | 2025-09-29 01:57 | PC.NURSE ---
Daylight Savings Time For Daylight Savings Time Ending in the Fall - Clocks are moved back. For Daylight Savings Time Beginning in the Spring - Clocks are moved ahead. For [facility], the time of change occurs at 0200 hrs. 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 This entry on the patient's chart recognizes the change in time reflected during documentation. Example: 2 entries for vital signs may be charted for 0200 hrs.
[2025-09-29 06:23] LABS: Hematocrit 42.4 % (42.0-52.0); Hemoglobin 13.2 g/dL (14.0-18.0); Mean Corpuscular HGB Conc 31.1 g/dl (32-36); Mean Corpuscular Hemoglobin 30.1 pg (26-34); Mean Corpuscular Volume 96.8 fl (80-100); Platelet Count Result 245 k/mm3 (150-375); Red Blood Count 4.38 M/mm3 (4.6-6.20); White Blood Count 9.8 K/mm3 (4.5-10.0)
[2025-09-29] MEDS: VANCOMYCIN 1,500 MG/NS 500 ML 1,500 MG/500 ML BAG 250 MG IVPB ×2 (06:37→15:14)
[2025-09-29 06:41] LABS: Alanine Aminotransferase 13 U/L (6-50); Albumin Level 2.9 g/dL (3.5-5.1); Alkaline Phosphatase 53 U/L (38-126); Aspartate Amino Transferase 16 U/L (17-59); Bilirubin,Total 0.2 mg/dL (0.2-1.3); Blood Urea Nitrogen 18 mg/dL (9-20); Calcium 8.5 mg/dL (8.4-10.2); Chloride 100 mmol/L (98-107); Estimated CRCL calculation 130 ml/min; Estimated Glomerular Filt Rate > 60; Glucose 81 mg/dL (65-110); Potassium 4.2 mmol/L (3.4-5.0); Sodium 136 mmol/L (137-145); Total Protein 5.5 g/dL (6.3-8.2)
[2025-09-29 06:51] LABS: Anion Gap 0 mmol/L (4-12); Carbon Dioxide 36 mmol/L (22-30)
[2025-09-29] MEDS: EMPAGLIFLOZIN 10 MG TABLET PO (08:58)
[2025-09-29] MEDS: guaiFENesin 12 HR 600 MG TABCR 1200 MG PO ×2 (08:58→20:27)
[2025-09-29] MEDS: cefTRIAXone 1 GM in SODIUM CHLORIDE 0.9% IV 50 ML 100 ML IVPB (08:58)
[2025-09-29] MEDS: METOPROLOL SUCCINATE EXT REL 25 MG TABCR PO (08:59)
[2025-09-29] MEDS: ENOXAPARIN 40 MG/0.4 ML SYRINGE SUB-Q (08:59)
[2025-09-29] MEDS: FUROSEMIDE 40 MG TABLET PO (08:59)
[2025-09-29] MEDS: SACUBITRIL/VALSARTAN 24-26 MG TABLET 1 TAB PO ×2 (08:59→20:27)
[2025-09-29] MEDS: MUPIROCIN 2% OINT 22 GM TUBE 1 APPLIC EACH NARE ×2 (08:59→20:28)
[2025-09-29] MEDS: BENZONATATE 100 MG CAPSULE 200 MG PO ×2 (09:00→18:37)
--- NOTE | 2025-09-29 11:17 | P.PNIM_ITS ---
Progress Note: A&P Assessment and Plan (1) Acute on chronic respiratory failure with hypoxia and hypercapnia: Code(s): J96.21 - Acute and chronic respiratory failure with hypoxia; J96.22 - Acute and chronic respiratory failure with hypercapnia Status: Acute Assessment and Plan: Patient with history of COPD with documented severe emphysema on recent chest x- ray 09/25. Initial ABG PH 7.22, pCO2 65.5, HC03 26.2, O2 sat 93. -pulmonology consult. Appreciate recommendations and assistance on this case -repeat chest x-ray on 09/27 -repeat ABG on 09/27 - DuoNebs Q4H jesus - Solu-Medrol 40 mg IV Q 6 - home medications: Albuterol inhaler, Combivent, Advair - guaifenesin 1200 mg p.o. b.i.d. - started on ceftriaxone and azithromycin on 09/26 - AVAPS mode rate of 20, tidal volume 550, EPAP 5, minimal inspiratory pressure 6, maximal inspiratory pressure 25, inspiratory time 0.8, rise of 1 and 30% FiO2. Patient said these settings were much more comfortable. Will contnue current treatment and monitor closely. 09/28/2025 Patient is gradually getting better. Will continue current treatment monitor closely. 09/29/2025 Patient gradually feeling better. Will continue current treatment. Repeat chest x-ray (2) Pneumonia: Qualifiers: Laterality: bilateral Lung location: unspecified part of lung Pneumonia type: due to unspecified organism Qualified Code(s): J18.9 - Pneumonia, unspecified organism Code(s): J18.9 - Pneumonia, unspecified organism Status: Acute Assessment and Plan: Patient presents with increased shortness of breath and cough present for the past week. Chest x-ray showed COPD changes with scattered bilateral infiltrates. - started azithromycin and Rocephin on 09/26 - MRSA PCR pending - Viral PCR pending - sputum culture -currently on BiPAP Will continue with antibiotics. Repeat chest x-ray (3) Nonischemic cardiomyopathy: Code(s): I42.8 - Other cardiomyopathies Status: Chronic Assessment and Plan: Diagnosed in December 2024. Initial echo with EF of 30-35%. Cardiac catheterization on 02/07/2025 showed no significant coronary disease. Most recent echo 02/27/24 at outside facility (on MyChart on patient's phone): EF 40- 45% (improved from 30-35%), LV now normal, RV mildly dilated, and no significant valvular disease. - BNP 1989 - 40 mg IVP furosemide x1 - repeat with 20 mg IVP furosemide x1 on 09/27 -updated echo ordered - repeat BNP in a.m. - home meds Entresto, spironolactone, metoprolol, Jardiance, Lasix 40 mg PO - monitor I&Os and daily weights - trend renal function Plan Diet: As tolerated GI prophylaxis: NA DVT prophylaxis: Lovenox lines/drains: PIV Fluids: NA Code status: Full Subjective Date/time seen: 09/29/25 11:17 Interval history: Patient was seen during the morning rounds today. Feeling much better Mild sob, no chest pain. Review of Systems Review of Systems: All systems reviewed & are unremarkable except as noted in HPI and below Exam Narrative: GENERAL: Drowsy on BiPAP. HEAD: Normocephalic, atraumatic. EYES: PERRLA. Conjunctivae clear. NOSE: Normal no drainage. THROAT: Pharynx clear, no exudate. NECK: Trachea midline. No adenopathy, no masses. RESPIRATORY: Air entry is better CARDIOVASCULAR: Regular rate and rhythm GASTROINTESTINAL: Abdomen is soft and nontender. No organomegaly. Bowel sounds normal in all quadrants. GENITOURINARY: Defer MUSCULOSKELETAL: Moves all extremities. No gross deformities. No calf tenderness. SKIN: Warm, dry, normal color. NEURO: A&O X4. Speech clear. Drowsy but speaking in full sentences PSYCHIATRIC: Normal interaction Objective Data Vital Signs Vital Signs: Vital Signs - 24 hr 09/28/25 14:00 09/28/25 15:16 09/28/25 15:21 Temperature Pulse Rate 85 94 85 Respiratory Rate 20 20 Blood Pressure Pulse Oximetry Oxygen Delivery Oxygen Flow Rate Fraction of Inspired Oxygen 09/28/25 16:00 09/28/25 16:00 09/28/25 16:00 Temperature 36.7 C Pulse Rate 86 89 Respiratory Rate 16 Blood Pressure 98/64 L Pulse Oximetry 95 98 Oxygen Delivery Nasal Cannula Oxygen Flow Rate 3 Fraction of Inspired Oxygen 09/28/25 18:00 09/28/25 20:00 09/28/25 20:00 Temperature 36.4 C Pulse Rate 94 84 Respiratory Rate 22 H Blood Pressure 100/65 Pulse Oximetry 96 94 Oxygen Delivery Nasal Cannula Oxygen Flow Rate 2 Fraction of Inspired Oxygen 09/28/25 20:00 09/28/25 20:06 09/28/25 20:08 Temperature Pulse Rate 92 88 88 Respiratory Rate 20 20 Blood Pressure Pulse Oximetry 93 Oxygen Delivery Nasal Cannula Oxygen Flow Rate 2 Fraction of Inspired Oxygen 28 09/28/25 20:18 09/28/25 22:00 09/28/25 22:14 Temperature Pulse Rate 87 78 81 Respiratory Rate 20 23 H Blood Pressure Pulse Oximetry 93 Oxygen Delivery BiPAP Oxygen Flow Rate Fraction of Inspired Oxygen 09/28/25 22:20 09/28/25 23:55 09/29/25 00:00 Temperature 36.3 C L Pulse Rate 88 Respiratory Rate 25 H Blood Pressure 108/68 Pulse Oximetry 98 99 Oxygen Delivery BiPAP BiPAP Oxygen Flow Rate Fraction of Inspired Oxygen 30 30 09/29/25 00:00 09/29/25 00:41 09/29/25 00:44 Temperature Pulse Rate 77 85 85 Respiratory Rate 22 H 22 H Blood Pressure Pulse Oximetry 93 Oxygen Delivery BiPAP Oxygen Flow Rate Fraction of Inspired Oxygen 09/29/25 02:00 09/29/25 04:00 09/29/25 04:00 Temperature 36.3 C L Pulse Rate 79 88 84 Respiratory Rate 22 H Blood Pressure 111/74 Pulse Oximetry 96 Oxygen Delivery Oxygen Flow Rate Fraction of Inspired Oxygen 09/29/25 04:00 09/29/25 04:11 09/29/25 04:22 Temperature Pulse Rate 105 H 105 H Respiratory Rate 25 H 22 H Blood Pressure Pulse Oximetry 99 97 Oxygen Delivery BiPAP BiPAP Oxygen Flow Rate Fraction of Inspired Oxygen 30 09/29/25 04:23 09/29/25 06:00 09/29/25 07:10 Temperature Pulse Rate 101 H 86 91 Respiratory Rate 22 H Blood Pressure Pulse Oximetry 91 Oxygen Delivery Nasal Cannula Oxygen Flow Rate 3 Fraction of Inspired Oxygen 32 09/29/25 07:56 09/29/25 08:00 09/29/25 08:59 Temperature 36.3 C L Pulse Rate 92 89 85 Respiratory Rate 20 Blood Pressure 102/69 Pulse Oximetry 91 Oxygen Delivery Oxygen Flow Rate Fraction of Inspired Oxygen 09/29/25 10:00 09/29/25 10:57 09/29/25 11:15 Temperature 36.6 C Pulse Rate 83 84 90 Respiratory Rate 20 20 Blood Pressure 92/60 L Pulse Oximetry 98 Oxygen Delivery Oxygen Flow Rate Fraction of Inspired Oxygen Intake/Output Intake/Output: Intake & Output 09/26/25 09/27/25 09/28/25 09/29/25 23:59 23:59 23:59 22:59 Intake Total 400 2020 4140 1850 Output Total 2100 500 3675 550 Balance -1700 3466 433 5550 Meds/Results Medications: Active Medications Generic Name Dose Route Start Last Admin Trade Name Freq PRN Reason Stop Dose Admin Acetaminophen 650 mg 09/26/25 11:34 Acetaminophen 325 Mg Tablet PO Q4H PRN Mild Pain (1-3) or Fever Albuterol/Ipratropium 3 ml 09/26/25 20:00 09/29/25 11:13 Ipratropium 0.5 Mg/Albuterol Sulfate 2.5 Mg (Base) Ampul.Neb 3 Ml INHALATION 3 ml Q4HRT JESUS Administration Benzonatate 200 mg 09/28/25 01:25 09/29/25 09:00 Benzonatate 100 Mg Capsule PO 200 mg TID PRN Administration Cough Empagliflozin 10 mg 09/27/25 09:00 09/29/25 08:58 Empagliflozin 10 Mg Tablet PO 10 mg DAILY JESUS Administration Enoxaparin Sodium 40 mg 09/26/25 13:05 09/29/25 08:59 Enoxaparin 40 Mg/0.4 Ml Syringe SUB-Q 40 mg DAILY JESUS Administration Furosemide 40 mg 09/26/25 15:00 09/29/25 08:59 Furosemide 40 Mg Tablet PO 40 mg DAILY JESUS Administration Guaifenesin 1,200 mg 09/26/25 21:00 09/29/25 08:58 Guaifenesin 12 Hr 600 Mg Tabcr PO 1,200 mg Q12HR JESUS Administration Ceftriaxone Sodium 1 gm/ 50 mls @ 100 mls/hr 09/27/25 09:00 09/29/25 09:28 Sodium Chloride IVPB Infused QAM JESUS Infusion Azithromycin 500 mg/ Sodium 250 mls @ 250 mls/hr 09/26/25 18:00 09/28/25 19:44 Chloride IVPB Infused Q24H JESUS Infusion Vancomycin HCl 1,500 mg in 500 mls @ 250 mls/hr 09/28/25 22:00 09/29/25 08:37 Vancomycin 1,500 Mg/Ns 500 Ml IVPB Infused Q8H JESUS Infusion Metoprolol Succinate 25 mg 09/27/25 09:00 09/29/25 08:59 Metoprolol Succinate Ext Rel 25 Mg Tabcr PO 25 mg QAM JESUS Administration Mupirocin 1 applic 09/26/25 21:00 09/29/25 08:59 Mupirocin 2% Oint 22 Gm Tube EACH NARE 10/01/25 09:01 1 applic Q12HR JESUS Administration Ondansetron HCl 4 mg 09/26/25 11:34 Ondansetron Inj 4 Mg/2 Ml Vial IV PUSH Q4H PRN Nausea Perflutren Lipid Microsphere 0 ml 09/26/25 15:03 Perflutren Lipid Microspheres 1.5 Ml Vial Diluted To 10 Ml Total Volume IV PUSH 09/29/25 15:04 ONCE PRN adequate visualization Protocol Prednisone 40 mg 09/27/25 12:00 09/29/25 08:58 Prednisone 20 Mg Tablet PO 40 mg DAILY@0800 JESUS Administration Sacubitril/Valsartan 1 tab 09/26/25 21:00 09/29/25 08:59 Sacubitril/Valsartan 24-26 Mg Tablet PO 1 tab Q12HR JESUS Administration Spironolactone 12.5 mg 09/27/25 09:00 09/29/25 08:59 Spironolactone 12.5 Mg Tablet PO 12.5 mg DAILY JESUS Administration Labs Labs: Laboratory Results - last 24 hr 09/28/25 09/29/25 20:41 06:16 WBC 9.8 RBC 4.38 L Hgb 13.2 L Hct 42.4 MCV 96.8 MCH 30.1 MCHC 31.1 L RDW 14.1 Plt Count 245 MPV 9.2 Sodium 136 L Potassium 4.2 Chloride 100 Carbon Dioxide 36 H Anion Gap 0 L BUN 18 D Creatinine 0.67 L Estim Creat Clear Calc 130 Estimated GFR > 60 Glucose 81 Calcium 8.5 Total Bilirubin 0.2 AST 16 L ALT 13 Alkaline Phosphatase 53 Total Protein 5.5 L Albumin 2.9 L Vancomycin Trough 11.5 Quality VTE Prophylaxis VTE prophylaxis: pharmacologic ordered
[2025-09-29] MEDS: AZITHROMYCIN IV 500 MG in SODIUM CHLORIDE 0.9% IV 250 ML IVPB (18:36)
[2025-09-30] VITALS (31 sets, daily range): BP systolic 106–120; BP diastolic 57–76; PULSE 57–103; RESP 16–24; TEMP 36.2–36.8; O2SAT 84–100
[2025-09-30] MEDS: IPRATROPIUM 0.5 MG/ALBUTEROL SULFATE 2.5 MG (BASE) AMPUL.NEB 3 ML INHALATION ×6 (04:17→23:21)
[2025-09-30 04:42] LABS: Estimated CRCL calculation 128 ml/min; Estimated Glomerular Filt Rate > 60
[2025-09-30] MEDS: VANCOMYCIN 1,750 MG/NS 500 ML 1,750 MG/500 ML BAG 250 MG IVPB (06:17)
[2025-09-30 09:05] LABS: Hematocrit 43.0 % (42.0-52.0); Hemoglobin 13.4 g/dL (14.0-18.0); Immature Granulocyte Percent A 0.7 % (0-0.5); Lymphocytes Absolute Auto 2.30 K/mm3 (0.9-3.2); Mean Corpuscular HGB Conc 31.2 g/dl (32-36); Mean Corpuscular Hemoglobin 29.8 pg (26-34); Mean Corpuscular Volume 95.8 fl (80-100); Nucleated Red Blood Cells Absolute Auto 0.000 K/mm3 (0.0-0.012); Nucleated Red Blood Cells Perc 0.0 % (0.0-0.2); Platelet Count Result 262 k/mm3 (150-375); Red Blood Count 4.49 M/mm3 (4.6-6.20); White Blood Count 8.7 K/mm3 (4.5-10.0)
[2025-09-30] MEDS: cefTRIAXone 1 GM in SODIUM CHLORIDE 0.9% IV 50 ML 100 ML IVPB (09:09)
[2025-09-30] MEDS: ENOXAPARIN 40 MG/0.4 ML SYRINGE SUB-Q (09:09)
[2025-09-30] MEDS: SACUBITRIL/VALSARTAN 24-26 MG TABLET 1 TAB PO ×2 (09:10→21:54)
[2025-09-30] MEDS: EMPAGLIFLOZIN 10 MG TABLET PO (09:10)
[2025-09-30] MEDS: FUROSEMIDE 40 MG TABLET PO (09:10)
[2025-09-30] MEDS: guaiFENesin 12 HR 600 MG TABCR 1200 MG PO ×2 (09:11→21:54)
[2025-09-30] MEDS: MUPIROCIN 2% OINT 22 GM TUBE 1 APPLIC EACH NARE ×2 (09:11→21:55)
[2025-09-30] MEDS: METOPROLOL SUCCINATE EXT REL 25 MG TABCR PO (09:11)
[2025-09-30 09:12] LABS: Anion Gap 0 mmol/L (4-12); Blood Urea Nitrogen 14 mg/dL (9-20); Calcium 8.2 mg/dL (8.4-10.2); Carbon Dioxide 36 mmol/L (22-30); Chloride 98 mmol/L (98-107); Glucose 80 mg/dL (65-110); Magnesium 2.3 mg/dL (1.6-2.3); Potassium 3.9 mmol/L (3.4-5.0); Sodium 134 mmol/L (137-145)
--- NOTE | 2025-09-30 15:02 | PM.IMPN ---
Progress Note: A&P Assessment and Plan (1) Acute on chronic respiratory failure with hypoxia and hypercapnia: Code(s): J96.21 - Acute and chronic respiratory failure with hypoxia; J96.22 - Acute and chronic respiratory failure with hypercapnia Status: Acute (2) Pneumonia: Qualifiers: Laterality: bilateral Lung location: unspecified part of lung Pneumonia type: due to unspecified organism Qualified Code(s): J18.9 - Pneumonia, unspecified organism Code(s): J18.9 - Pneumonia, unspecified organism Status: Acute (3) Nonischemic cardiomyopathy: Code(s): I42.8 - Other cardiomyopathies Status: Chronic Plan 55-year-old male who past medical history of HFrEF, COPD, ex-smoker presented to the ED on 09/26/2025 with complaints of increased shortness of breath and cough. Patient states this has been going on for the past week (1) Acute on chronic respiratory failure with hypoxia and hypercapnia: Patient with history of COPD with documented severe emphysema on recent chest x-ray 09/25. ? Pneumonia Initial ABG PH 7.22, pCO2 65.5, HC03 26.2, O2 sat 93. Appreciate pulmonary consult Continue with DuoNebs Continue with prednisone Continue with albuterol, Combivent, Advair Continue with ceftriaxone, azithromycin Continue with O2 support, wean off O2 as tolerated (2) Nonischemic cardiomyopathy: Diagnosed in December 2024. Initial echo with EF of 30-35%. Cardiac catheterization on 02/07/2025 showed no significant coronary disease. Most recent echo 02/27/24 at outside facility (on [employer] on patient's phone): EF 40-45% (improved from 30-35%), LV now normal, RV mildly dilated, and no significant valvular disease. BNP 1989 Echo with EF of 45-50% Continue with Entresto, Aldactone, metoprolol, Jardiance, Lasix 3. Code status: Full 4. DVT prophylaxis: Lovenox 5. Disposition: Pending improvement, anticipate discharge within next 24-48 hours if okay with Pulmonary Time Spent With Patient Time: 39 mins Subjective Date/time seen: 09/30/25 15:02 Interval history: No acute events overnight Feeling better today Review of Systems Review of Systems: All systems reviewed & are unremarkable except as noted in HPI and below Exam Narrative: GENERAL: on nc HEAD: Normocephalic, atraumatic. EYES: PERRLA. Conjunctivae clear. NOSE: Normal no drainage. THROAT: Pharynx clear, no exudate. NECK: Trachea midline. No adenopathy, no masses. RESPIRATORY: Air entry is better CARDIOVASCULAR: Regular rate and rhythm GASTROINTESTINAL: Abdomen is soft and nontender. No organomegaly. Bowel sounds normal in all quadrants. GENITOURINARY: Defer MUSCULOSKELETAL: Moves all extremities. No gross deformities. No calf tenderness. SKIN: Warm, dry, normal color. NEURO: A&O X4. Speech clear. PSYCHIATRIC: Normal interaction Objective Data Vital Signs Vital Signs: Vital Signs - 24 hr 09/29/25 15:04 09/29/25 15:52 09/29/25 16:00 Temperature 98.2 F Pulse Rate 92 96 Respiratory Rate 20 21 H Blood Pressure 102/60 Pulse Oximetry 93 93 Oxygen Delivery Nasal Cannula Oxygen Flow Rate 1 Fraction of Inspired Oxygen 09/29/25 16:00 09/29/25 18:00 09/29/25 19:47 Temperature 97.6 F Pulse Rate 91 94 94 Respiratory Rate 21 H Blood Pressure 112/73 Pulse Oximetry 92 Oxygen Delivery Oxygen Flow Rate Fraction of Inspired Oxygen 09/29/25 20:00 09/29/25 20:00 09/29/25 20:13 Temperature Pulse Rate 84 81 Respiratory Rate 20 Blood Pressure Pulse Oximetry 94 Oxygen Delivery Nasal Cannula Oxygen Flow Rate 1 Fraction of Inspired Oxygen 09/29/25 20:17 09/29/25 20:22 09/29/25 22:00 Temperature Pulse Rate 81 93 93 Respiratory Rate 20 20 Blood Pressure Pulse Oximetry 94 Oxygen Delivery Nasal Cannula Oxygen Flow Rate 1 Fraction of Inspired Oxygen 24 09/29/25 22:57 09/29/25 23:00 09/29/25 23:10 Temperature Pulse Rate 83 78 80 Respiratory Rate 25 H 23 H 22 H Blood Pressure Pulse Oximetry 98 Oxygen Delivery BiPAP Oxygen Flow Rate Fraction of Inspired Oxygen 09/30/25 00:00 09/30/25 00:00 09/30/25 00:00 Temperature 97.5 F L Pulse Rate 92 84 Respiratory Rate 22 H Blood Pressure 106/72 Pulse Oximetry 95 96 Oxygen Delivery BiPAP Oxygen Flow Rate Fraction of Inspired Oxygen 30 09/30/25 02:00 09/30/25 04:00 09/30/25 04:00 Temperature 97.3 F L Pulse Rate 88 92 Respiratory Rate 20 Blood Pressure 111/57 L Pulse Oximetry 93 84 L Oxygen Delivery BiPAP Oxygen Flow Rate Fraction of Inspired Oxygen 30 09/30/25 04:00 09/30/25 04:16 09/30/25 04:17 Temperature Pulse Rate 86 81 81 Respiratory Rate 20 20 Blood Pressure Pulse Oximetry 90 Oxygen Delivery Nasal Cannula Oxygen Flow Rate 2 Fraction of Inspired Oxygen 28 09/30/25 04:26 09/30/25 04:27 09/30/25 06:00 Temperature Pulse Rate 80 80 85 Respiratory Rate 20 20 Blood Pressure Pulse Oximetry 98 Oxygen Delivery Nasal Cannula Oxygen Flow Rate 1 Fraction of Inspired Oxygen 24 09/30/25 07:40 09/30/25 07:42 09/30/25 07:50 Temperature Pulse Rate 78 78 80 Respiratory Rate 20 20 20 Blood Pressure Pulse Oximetry 94 Oxygen Delivery Nasal Cannula Oxygen Flow Rate 1 Fraction of Inspired Oxygen 24 09/30/25 07:51 09/30/25 08:00 09/30/25 08:00 Temperature 98.2 F Pulse Rate 83 82 Respiratory Rate 20 Blood Pressure 120/70 Pulse Oximetry 93 91 Oxygen Delivery Nasal Cannula Oxygen Flow Rate 1 Fraction of Inspired Oxygen 09/30/25 08:15 09/30/25 08:45 09/30/25 09:11 Temperature Pulse Rate 82 78 87 Respiratory Rate 20 20 Blood Pressure Pulse Oximetry 87 L 91 Oxygen Delivery Room Air Nasal Cannula Oxygen Flow Rate 1 Fraction of Inspired Oxygen 21 09/30/25 12:45 09/30/25 12:51 Temperature Pulse Rate 98 103 H Respiratory Rate 20 20 Blood Pressure Pulse Oximetry Oxygen Delivery Oxygen Flow Rate Fraction of Inspired Oxygen Intake/Output Intake/Output: Intake & Output 09/27/25 09/28/25 09/29/25 09/30/25 23:59 23:59 22:59 23:59 Intake Total 2019 4140 3570 1370 Output Total 500 3675 2000 250 Balance 8149 279 3654 1120 Meds/Results Medications: Active Medications Generic Name Dose Route Start Last Admin Trade Name Freq PRN Reason Stop Dose Admin Acetaminophen 650 mg 09/26/25 11:34 Acetaminophen 325 Mg Tablet PO Q4H PRN Mild Pain (1-3) or Fever Albuterol/Ipratropium 3 ml 09/26/25 20:00 09/30/25 12:45 Ipratropium 0.5 Mg/Albuterol Sulfate 2.5 Mg (Base) Ampul.Neb 3 Ml INHALATION 3 ml Q4HRT SILVINO Administration Benzonatate 200 mg 09/28/25 01:25 09/29/25 18:37 Benzonatate 100 Mg Capsule PO 200 mg TID PRN Administration Cough Empagliflozin 10 mg 09/27/25 09:00 09/30/25 09:10 Empagliflozin 10 Mg Tablet PO 10 mg DAILY SILVINO Administration Enoxaparin Sodium 40 mg 09/26/25 13:05 09/30/25 09:09 Enoxaparin 40 Mg/0.4 Ml Syringe SUB-Q 40 mg DAILY SILVINO Administration Furosemide 40 mg 09/26/25 15:00 09/30/25 09:10 Furosemide 40 Mg Tablet PO 40 mg DAILY SILVINO Administration Guaifenesin 1,200 mg 09/26/25 21:00 09/30/25 09:11 Guaifenesin 12 Hr 600 Mg Tabcr PO 1,200 mg Q12HR SILVINO Administration Ceftriaxone Sodium 1 gm/ 50 mls @ 100 mls/hr 09/27/25 09:00 09/30/25 09:09 Sodium Chloride IVPB 100 mls/hr QAM SILVINO Administration Azithromycin 500 mg/ Sodium 250 mls @ 250 mls/hr 09/26/25 18:00 09/29/25 18:36 Chloride IVPB 250 mls/hr Q24H SILVINO Administration Vancomycin HCl 1,750 mg in 500 mls @ 250 mls/hr 09/30/25 06:00 09/30/25 06:17 Vancomycin 1,750 Mg/Ns 500 Ml IVPB 250 mls/hr Q12H SILVINO Administration Metoprolol Succinate 25 mg 09/27/25 09:00 09/30/25 09:11 Metoprolol Succinate Ext Rel 25 Mg Tabcr PO 25 mg QAM SILVINO Administration Mupirocin 1 applic 09/26/25 21:00 09/30/25 09:11 Mupirocin 2% Oint 22 Gm Tube EACH NARE 10/01/25 09:01 1 applic Q12HR SILVINO Administration Ondansetron HCl 4 mg 09/26/25 11:34 Ondansetron Inj 4 Mg/2 Ml Vial IV PUSH Q4H PRN Nausea Prednisone 40 mg 09/27/25 12:00 09/30/25 09:10 Prednisone 20 Mg Tablet PO 40 mg DAILY@0800 SILVINO Administration Sacubitril/Valsartan 1 tab 09/26/25 21:00 09/30/25 09:10 Sacubitril/Valsartan 24-26 Mg Tablet PO 1 tab Q12HR SILVNIO Administration Spironolactone 12.5 mg 09/27/25 09:00 09/30/25 09:10 Spironolactone 12.5 Mg Tablet PO 12.5 mg DAILY SILVINO Administration Radiology Results: ITS Impressions Chest X-Ray 09/29/25 11:57 IMPRESSION: 1. Improving but persistent interstitial pulmonary edema and/or pneumonitis. Labs Labs: Laboratory Results - last 24 hr 09/27/25 09/29/25 09/30/25 06:57 20:57 03:51 WBC 8.7 RBC 4.49 L Hgb 13.4 L Hct 43.0 MCV 95.8 MCH 29.8 MCHC 31.2 L RDW 14.0 Plt Count 262 MPV 9.9 Immature Gran % (Auto) 0.7 H Neut % (Auto) 59.5 Lymph % (Auto) 26.5 [place] % (Auto) 10.6 H Eos % (Auto) 2.5 Baso % (Auto) 0.2 Lymph # (Auto) 2.30 [place] # (Auto) 0.9 H Eos # (Auto) 0.2 Baso # (Auto) 0.0 Abs Immat Gran (auto) 0.06 H Absolute Neuts (auto) 5.2 Absolute Nucleated RBC 0.000 Nucleated RBC % 0.0 Sodium 134 L Potassium 3.9 Chloride 98 Carbon Dioxide 36 H Anion Gap 0 L BUN 14 Creatinine 0.68 L Estim Creat Clear Calc 128 Estimated GFR > 60 Glucose 80 Calcium 8.2 L Magnesium 2.3 Vancomycin Trough 22.1 H M.pneumoniae IgM Titer <770 Quality VTE Prophylaxis VTE prophylaxis: pharmacologic ordered
--- NOTE | 2025-09-30 16:45 | PC.NURSE ---
This patient, Omar Hines Jr., was transferred to [facility] on 09/30/25 at 1646. Personal belongings sent with patient. Report given to ANNETTE Casper. Appropriate documentation sent with patient.
--- NOTE | 2025-09-30 16:57 | PC.NURSE ---
This patient, Omar Mariel Hines Jr., was received from [[id number]] on 09/30/25 at 1746. Patient/family oriented to unit policies and routines.
[2025-09-30] MEDS: AZITHROMYCIN 250 MG TABLET 500 MG PO (17:14)
[2025-09-30] MEDS: LINEZOLID 600 MG TABLET PO (21:54)
[2025-10-01] VITALS (17 sets, daily range): BP systolic 98–99; BP diastolic 66–70; PULSE 79–119; RESP 18–20; TEMP 36.5; O2SAT 87–100
[2025-10-01] MEDS: IPRATROPIUM 0.5 MG/ALBUTEROL SULFATE 2.5 MG (BASE) AMPUL.NEB 3 ML INHALATION ×3 (05:06→12:45)
[2025-10-01 05:57] LABS: Hematocrit 45.0 % (42.0-52.0); Hemoglobin 14.0 g/dL (14.0-18.0); Immature Granulocyte Percent A 0.9 % (0-0.5); Lymphocytes Absolute Auto 2.55 K/mm3 (0.9-3.2); Mean Corpuscular HGB Conc 31.1 g/dl (32-36); Mean Corpuscular Hemoglobin 29.6 pg (26-34); Mean Corpuscular Volume 95.1 fl (80-100); Nucleated Red Blood Cells Absolute Auto 0.000 K/mm3 (0.0-0.012); Nucleated Red Blood Cells Perc 0.0 % (0.0-0.2); Platelet Count Result 278 k/mm3 (150-375); Red Blood Count 4.73 M/mm3 (4.6-6.20); White Blood Count 9.7 K/mm3 (4.5-10.0)
[2025-10-01 06:35] LABS: Anion Gap 3 mmol/L (4-12); Blood Urea Nitrogen 17 mg/dL (9-20); Calcium 8.8 mg/dL (8.4-10.2); Carbon Dioxide 39 mmol/L (22-30); Chloride 94 mmol/L (98-107); Estimated CRCL calculation 118 ml/min; Estimated Glomerular Filt Rate > 60; Glucose 86 mg/dL (65-110); Potassium 4.0 mmol/L (3.4-5.0); Sodium 136 mmol/L (137-145)
[2025-10-01] MEDS: SACUBITRIL/VALSARTAN 24-26 MG TABLET 1 TAB PO (09:11)
[2025-10-01] MEDS: EMPAGLIFLOZIN 10 MG TABLET PO (09:11)
[2025-10-01] MEDS: LINEZOLID 600 MG TABLET PO (09:11)
[2025-10-01] MEDS: guaiFENesin 12 HR 600 MG TABCR 1200 MG PO (09:11)
[2025-10-01] MEDS: FUROSEMIDE 40 MG TABLET PO (09:12)
[2025-10-01] MEDS: METOPROLOL SUCCINATE EXT REL 25 MG TABCR PO (09:12)
[2025-10-01] MEDS: MUPIROCIN 2% OINT 22 GM TUBE 1 APPLIC EACH NARE (09:12)
[2025-10-01] MEDS: ENOXAPARIN 40 MG/0.4 ML SYRINGE SUB-Q (09:12)
--- NOTE | 2025-10-01 13:50 | HOMEO2EVAL ---
Evaluation was performed at [facility] Home Oxygen Evaluation RC: Home Oxygen (O2) Evaluation Start: 10/01/25 11:38 Freq: ONCE Status: Active Protocol: RPE Activity Type Activity Date Activity User E-sign Co-sign Detail Recorded Client Recorded Date Recorded By Document 10/01/25 13:20 [email or web address] [email or web address] 10/01/25 13:50 MELVI Document 10/01/25 13:21 [email or web address] [email or web address] 10/01/25 13:50 MELVI Document 10/01/25 13:22 [email or web address] [email or web address] 10/01/25 13:50 MELVI Document 10/01/25 13:25 [email or web address] [email or web address] 10/01/25 13:50 MELVI Document 10/01/25 13:30 MELVI [email or web address] 10/01/25 13:50 MELVI 10/01/25 10/01/25 10/01/25 13:20 13:21 13:22 Home O2 Evaluation [Oxygen] -Test Phase Resting Resting Resting -Oxygen Delivery Room Air Nasal Cannula Nasal Cannula -Oxygen Flow Rate (L/min) 1 2 [Pulse Oximetry] -Pulse Oximetry (90-100 %) 87 L 88 L 93 [Pulse Rate] -Pulse Rate (60-100 beats/min) 96 93 [Comments] -Home Oxygen Evaluation Comments [Charges] -Evaluation Charges O2 Evaluation by Pulmonary 10/01/25 10/01/25 13:25 13:30 Home O2 Evaluation [Oxygen] -Test Phase Exercise Resting -Oxygen Delivery Nasal Cannula Nasal Cannula -Oxygen Flow Rate (L/min) 2 2 [Pulse Oximetry] -Pulse Oximetry (90-100 %) 91 94 [Pulse Rate] -Pulse Rate (60-100 beats/min) 119 H 91 [Comments] -Home Oxygen Evaluation Comments Patient requires 2 liters home O2 at rest and with activity [Charges] -Evaluation Charges
--- NOTE | 2025-10-01 14:34 | P.DS_ITS ---
DS: Admitting Diagnosis Discharge Date 02/27/2025 Admitting Diagnosis Shortness of breath Hypoxia DS: Discharge Diagnosis Discharge Diagnosis (1) Nonischemic cardiomyopathy: Code(s): I42.8 - Other cardiomyopathies Status: Chronic (2) Cardiomyopathy: Code(s): I42.9 - Cardiomyopathy, unspecified Status: Acute (3) Acute on chronic respiratory failure with hypoxia and hypercapnia: Code(s): J96.21 - Acute and chronic respiratory failure with hypoxia; J96.22 - Acute and chronic respiratory failure with hypercapnia Status: Acute (4) Pneumonia: Qualifiers: Laterality: bilateral Lung location: unspecified part of lung Pneumonia type: due to unspecified organism Qualified Code(s): J18.9 - Pneumonia, unspecified organism Code(s): J18.9 - Pneumonia, unspecified organism Status: Acute DS: Summary Hospital Course Reason for hospitalization: Shortness of breath and hypoxia Hospital Course: 55-year-old male who past medical history of HFrEF, COPD, ex-smoker presented to the ED on 09/26/2025 with complaints of increased shortness of breath and cough. Patient states this has been going on for the past week. ABG shows acidosis with hypercapnic pCO2 65 and bicarb was 26.2. Sepsis protocol activated. Blood culture collected. IV antibiotics started. MRSA PCR was positive. Vancomycin was added. Chest x-ray shows bilateral pneumonia. Blood culture no growth to date and vancomycin was discontinued. Patient was briefly on BiPAP and until his blood gas was corrected. Leukocytosis resolved. He continues to need supplemental oxygen. O2 walk test done and requires 2 L at all times. Patient was transitioned to p.o. linezolid for additional 5 days to complete 7 days of antibiotics. Patient remains hemodynamically stable. Patient was instructed to see his primary care physician and pulmonology. He remains hemodynamically stable and discharged home today. Time Spent with Patient Time attestation: Total time spent providing and/or coordinating discharge services: Exam Narrative: GENERAL: on nc HEAD: Normocephalic, atraumatic. EYES: PERRLA. Conjunctivae clear. NOSE: Normal no drainage. THROAT: Pharynx clear, no exudate. NECK: Trachea midline. No adenopathy, no masses. RESPIRATORY: Air entry is better CARDIOVASCULAR: Regular rate and rhythm GASTROINTESTINAL: Abdomen is soft and nontender. No organomegaly. Bowel sounds normal in all quadrants. GENITOURINARY: Defer MUSCULOSKELETAL: Moves all extremities. No gross deformities. No calf tenderness. SKIN: Warm, dry, normal color. NEURO: A&O X4. Speech clear. PSYCHIATRIC: Normal interaction DS: Data Data Completed and Pending Labs on day of discharge: Labs from last 24 hours 10/01/25 05:21 WBC 9.7 RBC 4.73 Hgb 14.0 Hct 45.0 MCV 95.1 MCH 29.6 MCHC 31.1 L RDW 13.6 Plt Count 278 MPV 9.3 Immature Gran % (Auto) 0.9 H Neut % (Auto) 60.4 Lymph % (Auto) 26.4 Nuckolls % (Auto) 8.6 H Eos % (Auto) 3.4 Baso % (Auto) 0.3 Lymph # (Auto) 2.55 Nuckolls # (Auto) 0.8 H Eos # (Auto) 0.3 Baso # (Auto) 0.0 Abs Immat Gran (auto) 0.09 H Absolute Neuts (auto) 5.8 Absolute Nucleated RBC 0.000 Nucleated RBC % 0.0 Sodium 136 L Potassium 4.0 Chloride 94 L Carbon Dioxide 39 H Anion Gap 3 L BUN 17 Creatinine 0.74 Estim Creat Clear Calc 118 Estimated GFR > 60 Glucose 86 Calcium 8.8 Preliminary micro results at discharge 09/27/25 05:23 Specimen Source - Preliminary Urine - Urine Clean Catch Streptococcus pneumoniae Ag Screen - Preliminary Sterile Body Fluid Culture - Preliminary Organism Identification - Preliminary 09/26/25 08:47 Blood Culture - Preliminary Blood 09/26/25 08:42 Blood Culture - Preliminary Blood Imaging Attestation: I personally reviewed and interpreted this imaging study as follows: Discharge Plan Discharge Attending physician on discharge: Laura Montenegro Consulting providers: Jaxson Abel; Laura Montenegro Discharging Clinician: Laura Montenegro Anticipated Discharge Date/Time: 10/01/25 14:27 Patient Disposition: Home Activity: unlimited Diet: as tolerated Discharge Instructions: Continue taking linezolid 600 mg b.i.d. 7 day course Patient Instructions: Antibiotic Form Patient Language: Turkish Stand Alone Forms: General Discharge Information Follow-up/Referrals: Bin,MD Jason [Primary Care Provider, Unknown] - 1 Week Jaxson Abel MD [Physician, Pulmonology] - 2 Weeks Discharge Medications: New linezolid 600 mg Tablet 600 mg PO Q12HR Qty: 10 0RF prednisone 20 mg Tablet 40 mg PO DAILY@0800 Qty: 3 0RF Continued prednisone 50 mg tablet 50 mg PO DAILY Qty: 5 0RF Patient Comments: for 5 days - started on 09/24/ fluticasone propion-salmeterol [Advair HFA] 45-21 mcg/actuation HFA aerosol inhaler 2 puff inhalation BID Qty: 12 0RF Proair Digihaler 90 mcg/actuation aero powdr breath act w/sensor 2 inh inhalation Q6H Qty: 1 0RF guaifenesin [Mucinex] 1,200 mg tablet extended release 12hr 1,200 mg PO BID 7 Days Qty: 14 0RF Patient Comments: As Needed for allergies loratadine [Claritin] 10 mg tablet 10 mg PO DAILY Qty: 30 0RF Patient Comments: As Needed for Seasonal Allergies. Pt takes Alavert which is Loratadine Jardiance 10 mg tablet 10 mg PO DAILY Qty: 90 3RF spironolactone 25 mg tablet 12.5 mg PO DAILY 90 Days Qty: 45 3RF metoprolol succinate [Toprol XL] 25 mg Tablet Extended Release 24 Hr 25 mg PO QAM 90 Days Qty: 90 3RF sacubitril-valsartan [Entresto] 24-26 mg Tablet 1 tablet PO Q12HR 90 Days Qty: 180 3RF Combivent Respimat 20-100 mcg/actuation mist 1 puff inhalation QID PRN (Reason: shortness of breath or wheezing) fluticasone propion-salmeterol [Advair HFA] 45-21 mcg/actuation Hfa Aerosol Inhaler 2 puff inhalation Q12HRT 30 Days Qty: 12 1RF furosemide [Lasix] 40 mg tablet 40 mg PO DAILY 30 Days Qty: 30 1RF Combivent Respimat 20-100 mcg/actuation mist 1 puff inhalation Q4H Qty: 4 1RF Date of admission: 09/26/25 11:34 Primary Care Provider: Bin,[facility] Admitting Provider: Taras Spencer Attending physician on admission: Taras Spencer Condition: Stable
== END 2025-10-01 16:19 | disposition home or self-care (01) | DRG 193 ==
LOC: ANHED 11:34 → ANHIMU 16:04 → ANH3MEDSUR 10-01 07:17 → ANHIMU 10-03 10:25
PROVIDERS: Internal Medicine; Internal Medicine Pulmonary Disease; Nurse Practitioner Adult Health; Admitting Provider Family Medicine; Emergency Provider Family Medicine; PCP Family Medicine; Visit Provider Student in an Organized Health Care Education/Training Program
DX: J18.9 Pneumonia, unspecified organism (principal); J96.21 Acute and chronic respiratory failure with hypoxia; J96.22 Acute and chronic respiratory failure with hypercapnia; J44.0 Chronic obstructive pulmonary disease with (acute) lower respiratory infection; I42.8 Other cardiomyopathies; J44.1 Chronic obstructive pulmonary disease with (acute) exacerbation; J45.901 Unspecified asthma with (acute) exacerbation; I50.22 Chronic systolic (congestive) heart failure; J43.1 Panlobular emphysema; Z22.322 Carrier or suspected carrier of Methicillin resistant Staphylococcus aureus; Z87.891 Personal history of nicotine dependence
CPT/HCPCS: 36415; 36600; 71045; 71046; 80048; 80053; 80202; 81003; 82103; 82104; 82375; 82565; 82805; 83050; 83605; 83735; 83880; 84145; 84439; 84443; 84484; 85018; 85025; 85027; 86140; 86738; 87040; 87426; 87449; 87641; 87804; 87899; 93005; 93306; 94002; 94618; 94640; 94762; 96365; 96367; 99213; 99291; A9270; G0463; J0456; J0696; J1650; J1938; J2919; J3373; J7050; J7512

== ENCOUNTER 2025-10-27 16:29 | Emergency (ER) | payer OTHER, SELFPAY ==
--- OUTSIDE RECORDS SUMMARY | 2025-10-27 16:31 | XMS_ITS | Data Portability ---
Author Organization [place] [facility] [email or web address], Main Office Address [address] [place] [address] Care Team Providers Care Plant Biology Professor Name Role Phone JASON STEWARD Primary Care Provider Assessment Encounter Date Assessment Date Assessment LastModified by Organization Details LastModified Time 01/01/2025 01/01/2025 D/w pt about his findings and further plan of care. Advised to call ambulance; but pt declined. Pt wants to drive by himself to [facility] ED. Risks explained. I called [facility] ED and d/w ED MD about pt's symptoms and concerns. Ok to send pt to ED. F/u as per ED MD's recommendatio ns. [email or web address] Not available 01/01/2025 09:37:52 Plan of Treatment Reminders Order Date Submit Date Provider Last Modified By Organization Details Last Modified Time Details Appointments Any 30 025 02:30PM Jason Steward MD Not available Not available [...] Abnormal Flag Note LastModifiedBy Organization Detail LastModifiedTime 01/01/2001/01/2025 XR, chest , 1 view No observ ation record ed. [email or web address] [place] [address], [place], [address], 01/01/2025 11:29:47 01/01/20 25 01/01/2025 CT, angio gram, chest , w/ contr ast No observ ation record ed. [email or web address] [facility] [address], [place], [address], 01/02/2025 09:09:51 01/03/20 25 01/02/2025 trans -thor acic echoc ardio gram (TTE) (PROC ) No observ ation record ed. [email or web address] [facility] [address], [place], [address], 01/08/2025 14:53:14 01/05/20 25 01/05/2025 XR, chest No observ ation record ed. [email or web address], [place], [address], 01/08/2025 14:53:35 Result Notes None recorded. Problems Name Problem SNOMED Code Status Onset Date Resolution Date Notes Provider Name and Address Organization Details Recorded Time Tobacco user 559937061 Active Not Available [facility] 3 09:18:17 Pain of joint of ankle Active Not Available [facility] 3 09:18:17 Knee pain Active Not Available [facility] 3 09:18:17 Bronchitis 68270896 Active Not Available [facility] 3 09:18:17 Sinusitis 23084129 Active Not Available [facility] 3 09:18:17 Anxiety 67120135 Active Not Available [facility] 3 09:18:17 Cough 28745635 Active Not Available [facility] 3 09:18:18 Upper respiratory infection 26561716 Active Not Available [facility] 3 09:18:18 Dyspnea on exertion 30095697 Active Not Available [facility] 3 09:18:18 Influenza 8660276 Active Not Available [facility] 3 09:18:18 Stress 54217871 Active Not Available [facility] 3 09:18:18 Posterior rhinorrhea 72702812 Active Not Available [facility] 3 09:18:18 Smoker 82435780 Active Not Available [facility] 3 09:18:18 Gout 39085115 Active Not Available [employer] 3 09:18:18 Tachypnea 925002197 Active 2024 Jason Steward MD [address], [address] , [facility] [employer] [facility] 5 09:33:23 Hypoxia 348441170 Active 2024 Jason Steward MD [address], [address] , [facility] [employer] [facility] 5 09:33:37 Acute exacerbation of chronic obstructive pulmonary disease 962467881 Active 2024 Jason Steward MD [address] [facility] [address], [address] , [facility] [employer] [facility] 5 09:33:49 Fatigue 72405838 Active 2024 Jason Steward MD [address] [facility] [address], [address] , [facility] [employer] [facility] 5 09:33:57 Cigarette smoker 77947385 Active 2024 Jason Steward MD [address] [facility] [address], [address] , [facility] [employer] [facility] 5 09:34:03 Overweight 088984130 Active 2024 Jason Steward MD [address], [address] , [facility] [employer] [facility] 5 09:36:14 Problem Notes None recorded. [...] mL nebulizatio n soln 03/03 completed [facility]#: [id number] Not Available [...] 500 mg solution for injection active [facility]#: [id number] Not Available [...] (BMI) Body weight Body temperature Oxygen saturation Heart rate Systolic And Diastolic Provider Name and Address Organization Details Last Updated DateTime 5 190.5 cm 28.3 kg/m2 585325. 98 g 97.4 [degF] 85 % 116 /min 150/110 mm[Hg] Priti Perez RN [place] [employer] [facility] 5 09:13:08 Date Recorded Body mass index (BMI) Body height Oxygen saturation Heart rate Body temperature Body weight Systolic And Diastolic Provider Name and Address Organization Details Last Updated DateTime 2 27.5 kg/m2 190.5 cm 95 % 95 /min 98.1 [degF] 71299.3 2 g 128/84 mm[Hg] Not Available [facility] 09:13:38 Social History Question Answer Notes LastModified by Egully Details LastModified Time Tobacco Smoking Status Current Every Day Smoker Not Available [facility] 01/26/2023 09:12:54 Do You Have An Advance Directive? No [id number] Information not available 01/26/2023 In The 14 Days Before Symptom Onset, Have You Had Close Contact With A Laboratory-confirm ed COVID-19 While That Case Was Ill? No [id number] Information not available 01/26/2023 In The 14 Days Before Symptom Onset, Have You Had Close Contact With A Person Who Is Under Investigation For COVID-19 While That Person Was Ill? No [id number] Information not available 01/26/2023 What Type Of Diet Are You Following? REGULAR [id number] Information not available 01/26/2023 What Is The Highest Grade Or Level Of School You Have Completed Or The Highest Degree You Have Received? [id number] [id number] Information not available 01/26/2023 Do You Have A Medical Power Of Reliability Technologist? No [id number] Information not available 01/26/2023 What Is Your Relationship Status? Single [id number] 026 Information not available 01/26/2023 How Much Tobacco Do You Smoke? 0.5 PPD [id number] 026 Information not available 01/26/2023 Have You Recently Traveled Abroad? No [id number] Information not available 01/26/2023 Are You Currently In School? No [id number] Information not available 01/26/2023 Sex: Unknown Functional Status Question Answer Note LastModified by Egully Details LastModified Time What is your level of alcohol consumption? 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 Moderate [id number] 26 Information not available 01/26/2023 Mental Status None recorded. Family History Relationship Description Onset Age of this Age Resolved Age Notes LastModified by Organization Details LastModified Time Father No current problems or disability [id number] Not available 01/26/2023 09:13:20 Mother No current problems or disability [id number] Not available 01/26/2023 09:13:20 Medical History No medical history recorded. Past Encounters Encounter ID Performer Location Encounter Start Date Encounter Closed Date Diagnosis/Indication Diagnosis SNOMED-CT Code Diagnosis ICD10 Code Diagnosis IMO Codes Diagnosis Note [id number] Jason Steward MD [facility] [address] [place] [id number] 11/11/2022 00:00:00 11/11/2022 16:45:58 [id number] Jason Steward MD [facility] [address] [place] [address] 01/01/2025 09:01:18 01/01/2025 09:17:09 Dyspnea on exertion 64462159 R06.09 Tachypnea 989667171 R06. 82 Hypoxia 518236394 R09.02 Acute exac erbation of chronic obstructive pulmonary disease 187254969 J44.1 Fatigue 17139055 R53.83 Cigarette smoker 3807980 7 F17.210 Overweight 593312094 E66 .3 Health Concerns Section Related Observation LastModified by Organization Detai ls LastModified Time None Recorded Concern Status LastModified by Organization Details LastModified Time None Recorded Advance Directives Directive N: Payers Insurance Date Sequence Insurance Name Policy Number Policy Nunes Covered Member ID Nunes Member ID Guarantor Name 01/01/2025 1 [employer] - [facility] (O) [id number] Omar Hines [id number] Omar Hines 01/01/2025 1 [facility] [id number] Omar Hines [id number] Omar Hines Notes Date Note Type Note [...] Last visit in 11/18. Jason Steward MD [address] [place] [address], [place], [address], [place] [facility] 01/01/2025 09:38:00
--- OUTSIDE RECORDS SUMMARY | 2025-10-27 16:31 | XMS_ITS | Clinical Summary ---
Author Organization [facility] [address] [facility] [address] Address [address] [place] [address] Care Team Providers Care Director Global Market Research Name Role Phone Jason Steward MD Primary Care Provider [phone] Allergies Active Allergy Reactions Criticality Noted Date [...] Description 09/24/2025 8:45 AM CDT Office Visit 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 Gender Identity Not on file Sexual Orientation Not on file Last Filed Vital Signs Vital Sign Reading Time Taken Comments Blood Pressure 82/58 09/24/2025 8:43 AM CDT Pulse 100 09/24/2025 8:43 AM CDT Temperature - - Respiratory Rate - - Oxygen Saturation 90% 09/24/2025 8:43 AM CDT Inhaled Oxygen Concentration - - Weight 92.7 kg (204 lb 4.8 oz) 09/24/2025 8:43 A M CDT Height 190.5 cm (6' 3) 09/24/2025 [...] (1 of 2) 2019 Covid-19 Vaccine ( season) 2025 12/10/2021, 03/08/2021, 02/15/2021 Influenza Vaccine (#1) 2025 09/03/2011 Insurance [facility] CHOICE PL[facility] HMO/PPO Address: [facility] [address] [place] [address] Care Teams Director Global Market Research Relationship Specialty Start Date End Date Jason Steward MD [address] [place] [address] PCP - General Family Medicine 01/23/25
--- OUTSIDE RECORDS SUMMARY | 2025-10-27 16:31 | XMS_ITS | Encounter Summary ---
Author Organization [facility] Healthcare Address [address] [place] [address] Care Team Providers Care Facility Designer Name Role Phone Elsa Isaac NP Primary Care Provider [phone] Jason Steward MD Primary Care Provider [phone] Jason Steward MD Primary Care Provider [phone] Encounter Details Date Type Department Care Team (Late st Contact Info) Description 01/01/2025 Orders Only [facility] Information Management [address] [place] [address] Scanning, Provider Social History Tobacco Use Types Packs/Day Years Used Date Smoking Tobacco: Never Assessed Sex and Gender Information Value Date Recorded Sex Assigned at Not on file 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
--- OUTSIDE RECORDS SUMMARY | 2025-10-27 16:32 | XMS_ITS | Encounter Summary ---
Author Organization [facility] Healthcare Address [address] [place] [address] Care Team Providers Care Civil Drafter Name Role Phone Elsa Isaac NP Primary Care Provider [phone] Jason Steward MD Primary Care Provider [phone] Jason Steward MD Primary Care Provider [phone] Encounter Details Date Type Department Care Team (Late st Contact Info) Description 01/05/2025 Orders Only [facility] Health Information Management [address] [place] [address] Scanning, Provider Social History Tobacco Use Types Packs/Day Years Used Date Smoking Tobacco: Never Assessed Sex and Gender Information Value Date Recorded Sex Assigned at Not on file 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
[2025-10-27 16:37] VITALS: BP 106/71; PULSE 100; RESP 18; TEMP 36.1; O2SAT 93
--- NOTE | 2025-10-27 16:49 | ED.URI ---
HPI - URI/Sore Throat General Chief Complaint: Upper Respiratory Infection Stated Complaint: Upper Respiratory Infection patient presents to the [facility] with complaints of nasal drainage, sinus pain, sore throat, headache, wheezing and increased cough that began about 3 days ago. Patient reports using [id number] medications with temporary relief of symptoms. Patient was recently hospitalized with pneumonia and is concerned about this happening again. Patient does have a scheduled appointment with Cardiology tomorrow and pulmonology November 13. Patient does report using his Advair inhaler and the rescue inhaler as well as directed. Patient reports he did go home on oxygen but after about 3 days he no longer needed this but still has this at home, has been watching his oxygenation and was told to use this to stay above 92%. Denies fever, chills, body aches, nausea, vomiting, diarrhea, dizziness, ear pain, or difficulty swallowing. Related Data Home Medications ?Medication ?Instructions ?Recorded ?Confirmed ?Last Taken ?Type ipratropium 20 mcg-albuterol 100 1 puff inhalation QID PRN 09/26/25 09/26/25 Unknown History mcg/actuation mist for inhalation shortness of breath or wheezing (Combivent Respimat) Allergies Allergy/AdvReac Type Severity Reaction Status Date / Time codeine AdvReac Intermediate light Verified 09/26/25 14:03 headed, dizzy, sweating Review of Systems Constitutional: Constitutional: Reports as per HPI, Denies chills, Reports fatigue, Denies fever(s) and Denies weakness Eyes: Eyes: Reports no additional eye complaints ENT: Reports as per HPI, Denies vertigo, Denies dizziness, Reports nasal congestion and Reports sore throat Cardiovascular: Cardiovascular: Reports no additional cardiovascular complaints Respiratory: Respiratory: Reports as per HPI, Reports chest congestion, Reports cough, Reports dyspnea and Reports wheezing Gastrointestinal: Gastrointestinal: Reports no additional gastrointestinal complaints Genitourinary: Genitourinary: Reports no additional male genitourinary complaints Musculoskeletal: Musculoskeletal: Reports as per HPI, Denies back pain and Denies myalgias Integumentary/Breasts: Skin/Breast: Reports as per HPI and Denies rash Neurologic: Reports as per HPI, Denies vertigo, Denies dizziness, Reports headache(s) and Denies weakness Psychiatric: Psychiatric: Reports no additional psychiatric complaints Endocrine: Endocrine: Reports no additional endocrine complaints Hematologic/Lymphatic: Hematologic/Lymphatic: Reports no additional hematologic/lymphatic complaints Allergic/Immunologic: Allergic/Immunologic: Reports as per HPI and Reports wheezing PMFSH Past Medical History Medical History (Updated 10/27/25 @ 16:52 by Jeniffer Grant APRN, [employer]) Cardiomyopathy COPD (chronic obstructive pulmonary disease) Asthma exacerbation in COPD Surgical History Surgical History No pertinent past surgical history Family History Family History Mother Cervical cancer Father Heart failure Social History Social History Smoking packs per day: 1 Smoking cigarettes per day: 20.0 Years smoked: 30 Smoking pack-years: 30.00 Smoking status: Former smoker Tobacco type: cigarettes Smokeless tobacco user: chewing tobacco Smoking end date: 09/26/25 Alcohol intake: never Alcohol use details: nothing for 2 years Substance use: never Substance use type: does not use Lack of Transportation: No Lack of Food: Never True Current Housing: I Have Housing Concerned About Future Housing: No Difficulty Paying Gas/Electric Bills: No Difficulty Paying for Meds: No Currently Unemployed: No Education: High School Diploma/GED Difficulty w/ Childcare or Family Care: No Living arrangements: with family Additional living arrangements comments: minor daughter Spiritual care concerns: No Exam Const: General: healthy appearing and no acute distress Nutritional Appearance: well nourished Orientation/consciousness: patient oriented x3 Limitations: no limitations HENMT: Head: normal to inspection Ears: external ears normal and TM's normal bilaterally Face/Nose/Sinus: Normal external nose present and Normal nares present Face and sinus: normal facial exam and sinuses nontender Mouth: Yes Normal oral and palatal mucosa present, Yes lip normal and Yes moist mucous membranes Throat: posterior oropharynx normal Neck: Neck: normal visual inspection and no lymphadenopathy Resp: Effort & Inspection: normal respiratory effort Auscultation: no crackles, no rales, no rhonchi, wheezes and diminished lung sounds Cardio: Rate: regular rate Rhythm: regular rhythm Skin: General skin exam: normal color Rashes: no rashes Wounds: no wounds Neuro: General: patient oriented x3 Speech: normal speech Gait exam (Neuro): Normal gait present Psych: Mental Status: mental status grossly normal Affect: normal affect Attitude: cooperative Course Course Level of Care: Express Care Visit Vital Signs Vital signs: Vital Signs Temperature 96.9 F L 10/27/25 16:37 Pulse Rate 100 10/27/25 16:37 Respiratory Rate 18 10/27/25 16:37 Blood Pressure 106/71 10/27/25 16:37 Pulse Oximetry 100 10/27/25 16:37 Oxygen Delivery Room Air 10/27/25 16:37 Temperature 96.9 F L 10/27/25 16:37 Pulse Rate 100 10/27/25 16:37 Respiratory Rate 18 10/27/25 16:37 Blood Pressure 106/71 10/27/25 16:37 Pulse Oximetry 100 10/27/25 16:37 Oxygen Delivery Room Air 10/27/25 16:37 MDM - URI/Sore Throat MDM Narrative Medical decision making narrative: Reviewed recent ER visit patient does have follow-up with pulmonology and Cardiology within the month. Refill of Advair and albuterol needed per patient. The patient was evaluated by myself in the express care. History is obtained from patient who is an independent historian and physical exam was performed. Available medical records were reviewed at this time. Exam findings show no acute concerns or changes; patient is non-toxic appearing and is in no distress. Patient is appropriate for outpatient treatment and follow-up. I have evaluated and discussed social determinants of health with the patient that could potentially impact subsequent diagnosis and treatment plans. Differential diagnosis and treatment plan were discussed with the patient. Patient agrees with discussion and after shared medical decision making agrees with plan of care. All questions were answered to the patient's satisfaction. Differential Diagnosis Differential diagnosis: Likely upper respiratory infection, croup, otitis media, sinusitis, viral infection, bronchitis, influenza and pharyngitis Medical Records Attestation: I reviewed the patient's medical records. Discharge Plan Discharge Clinical Impression: Bronchitis Patient Disposition: Home Condition: Stable Instructions: Antibiotic Form, Acute Bronchitis (ED) Additional Instructions: take this antibiotic as directed. Unsure to take your inhalers daily and keep your appointment with pulmonology Medication you can take to make you feel better: prednisone as directed. this medication can cause jitteriness or palpitations. If this happens You may stop this medication. albuterol inhaler every 4 hours as needed for cough, shortness of breath, or wheezing. Tessalon Perles/benzonatate for cough. These can be taken 3 times a day as needed. May also use uhaw-bjh-gkiafpo medications like Mucinex, Sudafed, Flonase, Tylenol, and ibuprofen. If your symptoms worsen or last longer than 7-10 days follow-up with primary care provider or emergency room as needed. Patient Language: Kinyarwanda Prescriptions: New prednisone 10 mg tablet 10 mg PO DIRECTED Qty: 18 0RF Rx Instructions: take 3 tablets for 3 days, 2 tablets for 3 days, 1 tablet for 3 days benzonatate 200 mg capsule 200 mg PO TID PRN (Reason: cough) Qty: 30 0RF doxycycline monohydrate 100 mg capsule 100 mg PO BID Qty: 20 0RF albuterol sulfate [Ventolin HFA] 90 mcg/actuation HFA aerosol inhaler 2 puff inhalation QID PRN (Reason: shortness of breath or wheezing) Qty: 8.5 0RF fluticasone propion-salmeterol [Advair HFA] 45-21 mcg/actuation HFA aerosol inhaler 2 puff inhalation Q12H Qty: 12 0RF Rx Instructions: administer with spacer No Action fluticasone propion-salmeterol [Advair HFA] 45-21 mcg/actuation HFA aerosol inhaler 2 puff inhalation BID Qty: 12 0RF Proair Digihaler 90 mcg/actuation aero powdr breath act w/sensor 2 inh inhalation Q6H Qty: 1 0RF guaifenesin [Mucinex] 1,200 mg tablet extended release 12hr 1,200 mg PO BID 7 Days Qty: 14 0RF Patient Comments: As Needed for allergies loratadine [Claritin] 10 mg tablet 10 mg PO DAILY Qty: 30 0RF Patient Comments: As Needed for Seasonal Allergies. Pt takes Alavert which is Loratadine Jardiance 10 mg tablet 10 mg PO DAILY Qty: 90 3RF spironolactone 25 mg tablet 12.5 mg PO DAILY 90 Days Qty: 45 3RF metoprolol succinate [Toprol XL] 25 mg Tablet Extended Release 24 Hr 25 mg PO QAM 90 Days Qty: 90 3RF sacubitril-valsartan [Entresto] 24-26 mg Tablet 1 tablet PO Q12HR 90 Days Qty: 180 3RF Combivent Respimat 20-100 mcg/actuation mist 1 puff inhalation QID PRN (Reason: shortness of breath or wheezing) linezolid 600 mg Tablet 600 mg PO Q12HR Qty: 10 0RF fluticasone propion-salmeterol [Advair HFA] 45-21 mcg/actuation Hfa Aerosol Inhaler 2 puff inhalation Q12HRT 30 Days Qty: 12 1RF furosemide [Lasix] 40 mg tablet 40 mg PO DAILY 30 Days Qty: 30 1RF Combivent Respimat 20-100 mcg/actuation mist 1 puff inhalation Q4H Qty: 4 1RF Follow-up/Referrals: Bin,MD Jason [Primary Care Provider, Unknown] Time of Disposition: 16:54
== END 2025-10-27 16:59 | disposition home or self-care (01) ==
PROVIDERS: Emergency Provider Nurse Practitioner Family; PCP Family Medicine
DX: J40 Bronchitis, not specified as acute or chronic (principal); F17.220 Nicotine dependence, chewing tobacco, uncomplicated; I42.9 Cardiomyopathy, unspecified; J44.9 Chronic obstructive pulmonary disease, unspecified
CPT/HCPCS: 99213; G0463

== ENCOUNTER 2025-11-24 13:37 | Emergency (ER) | payer OTHER, SELFPAY ==
--- OUTSIDE RECORDS SUMMARY | 2025-11-24 13:39 | XMS_ITS | Clinical Summary ---
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 Ancillary Procedure [facility] Medical [facility] Cardiology [address] [facility] [address] [place] [phone] Chronic systolic heart failure (HCC) 09/24/2025 8:45 AM CDT Office Visit [facility] Cardiology [address] [place] [address] [address] [place] [phone] Eliseo Santiago MD Chronic systolic heart failure [...] on file Legal Sex Male 7:59 AM 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 Gender Identity Not on file Sexual Orientation [...] Vaccine (1 of 2) 2019 Covid-19 Vaccine (4 - 2024- season) 2025 12/10/2021, 03/08/2021, 02/15/2021 Influenza Vaccine (#1) 2025 09/03/2011 Procedures Procedure Name Priority Date/Time Associated Diagnosis Comments TRANSTHORACIC ECHO (TTE) COMPLETE W DOPPLER/CF WO CONTRAST Routine 10/28/2025 9:13 AM 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 Chronic systolic heart failure (HCC) from Last 3 Months Results * TRANSTHORACIC ECHO (TTE) COMPLETE W DOPPLER/CF WO CONTRAST (10/28/2025 9:13 AM 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) EF Mod BP 43 % CONS SCIMAGE Anatomical Region Laterality Modality Ultrasound 10/28/2025 8:25 AM 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 Narrative 10/28/2025 5:11 PM 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 [facility] Medical [facility] Cardiology [address] [facility] [address], [place] [address] [address] [facility] [address], [place] [address] P:[phone] P:[phone] Echocardiographic Report Patient Name: THELMA BROCK N : 1970 Study Date: 10/28/2025 8:25:53 AM Sex: M Foley Artist: Fawn Damon (Cindy)(SD), [facility] Location: [facility] Ref Provider: ELISEO SANTIAGO Height(Cm): 190 BSA: 2.21 Weight(Kg): 92.5 Heart Rate: 97 BP: 82 / 58 Quality: Good Order Provider: ELISEO SANTIAGO PROCEDURES: Echocardiographic Report: Transthoracic echocardiogram with complete 2D, M-Mode, and color Doppler examination. With Strain Analysis. INDICATIONS: I50.22 Chronic systolic (congestive) heart failure. MEASUREMENTS: 2D/MM Value Range Doppler Value Range EF Mod BP 43 % [ 52 - 72 ] GIOVANA Vmax 3.29 cm2 [ 2.00 - 4.00 ] LV GLS -12.12 % AV Mean PG 4 mmHg LVIDd 2D 5.08 cm [ 4.20 - 5.80 ] AV Peak Devin 1.27 m/s [ 1.00 - 1.70 ] LVIDs 2D 4.08 cm [ 2.50 - 4.00 ] AV Peak PG 6 mmHg LVPWd 2D 0.89 cm [ 0.60 - 1.00 ] AV VTI 18.30 cm IVSd 2D 0.86 cm [ 0.60 - 1.00 ] LVOT Diam 2.24 cm [ 1.70 - 2.10 ] AoR Diam 2D 4.23 cm [ 3.10 - 3.70 ] LVOT Peak Devin 1.06 m/s [ 0.70 - 1.10 ] LA Volume 34.21 ml [ 18.00 - 58.00 ] LVOT VTI 18.00 cm LA Volume Index 15 cc/m2 [ 16 - 28 ] MV E Peak Devin 0.41 m/s [ 0.60 - 1.30 ] RA Volume 38.97 ml MV A Peak Devin 0.81 m/s [ 1.00 - 1.20 ] MV Decel Time 114 msec [ 104 - 258 ] PV Peak Devin 0.65 m/s [ 0.40 - 0.80 ] RV S` 8.37 mmHg Lateral E` 0.05 m/s [ 0.10 - 0.15 ] Septal E` 0.05 m/s [ 0.08 - 0.15 ] E` 0.05 m/s E/E` 9 Tapse 1.83 cm [ 1.71 - 5.00 ] 2D/MM Value Range Doppler Value Range - FINDINGS: Interpretation Site: Exam was interpreted at [facility]. Left Ventricle: Normal left ventricular size. Normal left ventricular wall thickness. Impaired diastolic relaxation Grade I. Ejection fraction is measured at 43 %. Global Longitudinal Strain is -12 %. GLS is abnormal. Right Ventricle: Normal right ventricular systolic function. Moderate enlargement of right ventricle. Left Atrium: The left atrium is normal in size. Right Atrium: There is mild enlargement of right atrium. Atrial Septum: Normal atrial septum. Mitral Valve: Normal appearance of the mitral valve. No mitral valve regurgitation is seen. There is no hemodynamically significant mitral stenosis by Doppler. Aortic Valve: Normal appearance of the aortic valve. No evidence of hemodynamically significant aortic stenosis by Doppler. No aortic regurgitation. Tricuspid Valve: Normal appearance of the tricuspid valve. No evidence of tricuspid regurgitation. Pulmonic Valve: Normal appearance of the pulmonic valve. No evidence of pulmonic regurgitation. Pericardium: Normal pericardium with no significant pericardial effusion. Aorta: Sinus of Valsalva is mildly dilated. Sinus of Valsalva 4.2 cm. Ascending aorta is mildly dilated. Ascending Aorta 4.1 cm. IVC: Normal size and normal respiratory collapse consistent with normal right atrial pressure (<5 mmHg). Pulmonary Artery: Pulmonary artery not well visualized. CONCLUSIONS: Normal left ventricular size. Normal left ventricular wall thickness. Impaired diastolic relaxation Grade I. Ejection fraction is measured at 43 %. Global Longitudinal Strain is -12 %. GLS is abnormal. Flattening of the interventricular septum in systole consistent with elevated right ventricular systolic pressures. Normal right ventricular systolic function. Moderate enlargement of right ventricle. There is mild enlargement of right atrium. Sinus of Valsalva 4.2 cm. Ascending Aorta 4.1 cm. Electronically Signed By: Dr. Booker Lawson [facility] 10/28/2025 5:11:06 PM 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 Procedure Note Booker Lawson MD - 10/28/2025 [facility] Medical [facility] Cardiology [address] [facility] [address], [place] [address] [address] [facility] [address] [address] P:[phone] P:[phone] Echocardiographic Report Patient Name: THELMA BROCK N : 1970 Study Date: 10/28/2025 8:25:53 AM Sex: M Foley Artist: Fawn Egan)(CT), [facility] Location: [facility] Ref Provider: ELISEO SANTIAGO Height(Cm): 190 BSA: 2.21 Weight(Kg): 92.5 Heart Rate: 97 BP: 82 / 58 Quality: Good Order Provider: ELISEO SANTIAGO PROCEDURES: Echocardiographic Report: Transthoracic echocardiogram with complete 2D, M-Mode, and color Dopplerexamination. With Strain Analysis. INDICATIONS: I50.22 Chronic systolic (congestive) heart failure. MEASUREMENTS: 2D/MM Value Range Doppler ValueRange EF Mod BP 43 % [ 52 - 72 ] GIOVANA Vmax 3.29cm2 [ 2.00 - 4.00 ] LV GLS -12.12 % AV Mean PG 4mmHg LVIDd 2D 5.08 cm [ 4.20 - 5.80 ] AV Peak Devin 1.27m/s [ 1.00 - 1.70 ] LVIDs 2D 4.08 cm [ 2.50 - 4.00 ] AV Peak PG 6mmHg LVPWd 2D 0.89 cm [ 0.60 - 1.00 ] AV VTI 18.30cm IVSd 2D 0.86 cm [ 0.60 - 1.00 ] LVOT Diam 2.24cm [ 1.70 - 2.10 ] AoR Diam 2D 4.23 cm [ 3.10 - 3.70 ] LVOT Peak Devin 1.06m/s [ 0.70 - 1.10 ] LA Volume 34.21 ml [ 18.00 - 58.00 ] LVOT VTI 18.00cm LA Volume Index 15 cc/m2 [ 16 - 28 ] MV E Peak Devin 0.41m/s [ 0.60 - 1.30 ] RA Volume 38.97 ml MV A Peak Devin 0.81m/s [ 1.00 - 1.20 ] MV Decel Time 114 msec [ 104 - 258 ] PV Peak Devin 0.65 m/s [ 0.40 - 0.80 ] RV S` 8.37 mmHg Lateral E` 0.05 m/s [ 0.10 - 0.15 ] Septal E` 0.05 m/s [ 0.08 - 0.15 ] E` 0.05 m/s E/E` 9 Tapse 1.83 cm [ 1.71 - 5.00 ] 2D/MM Value Range Doppler ValueRange - FINDINGS: Interpretation Site: Exam was interpreted at [facility]. Left Ventricle: Normal left ventricular size. Normal left ventricular wall thickness.Impaired diastolic relaxation Grade I. Ejection fraction is measured at 43 %. GlobalLongitudinal Strain is -12 %. GLS is abnormal. Right Ventricle: Normal right ventricular systolic function. Moderate enlargement of rightventricle. Left Atrium: The left atrium is normal in size. Right Atrium: There is mild enlargement of right atrium. Atrial Septum: Normal atrial septum. Mitral Valve: Normal appearance of the mitral valve. No mitral valve regurgitation isseen. There is no hemodynamically significant mitral stenosis by Doppler. Aortic Valve: Normal appearance of the aortic valve. No evidence of hemodynamicallysignificant aortic stenosis by Doppler. No aortic regurgitation. Tricuspid Valve: Normal appearance of the tricuspid valve. No evidence of tricuspidregurgitation. Pulmonic Valve: Normal appearance of the pulmonic valve. No evidence of pulmonicregurgitation. Pericardium: Normal pericardium with no significant pericardial effusion. Aorta: Sinus of Valsalva is mildly dilated. Sinus of Valsalva 4.2 cm. Ascendingaorta is mildly dilated. Ascending Aorta 4.1 cm. IVC: Normal size and normal respiratory collapse consistent with normal rightatrial pressure (<5 mmHg). Pulmonary Artery: Pulmonary artery not well visualized. CONCLUSIONS: Normal left ventricular size. Normal left ventricular wall thickness.Impaired diastolic relaxation Grade I. Ejection fraction is measured at 43 %. GlobalLongitudinal Strain is -12 %. GLS is abnormal. Flattening of the interventricular septum insystole consistent with elevated right ventricular systolic pressures. Normal right ventricular systolic function. Moderate enlargement of rightventricle. There is mild enlargement of right atrium. Sinus of Valsalva 4.2 cm. Ascending Aorta 4.1 cm. Electronically Signed By: Dr. Booker Lawson [facility] 10/28/2025 5:11:06 PM 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 us Eliseo Santiago MD CV ECHO PROCEDURES Final Result from Last 3 Months Insurance [facility] CHOICE PLUS Care Teams Map Compiler Relationship Specialty Start Date End Date Jason Steward MD [address] [facility] [place] [address] PCP - General Family Medicine 01/23/25
--- OUTSIDE RECORDS SUMMARY | 2025-11-24 13:39 | XMS_ITS ---
Author Organization Unknown ENCOUNTERS Encounter Performer Location Date Diagnosis Diagnosis Status Inpatient [facility] [address] [place] [address] [id number] [facility] [facility] [address] [place] [address] [id number] PAT Pre Admit [facility] [address] [place] [address] [id number] Outpatient [facility] [address] [place] [address] [id number] [facility] [address] [place] [address] [id number] [facility] [facility] [address] [place] [address] [id number] PAT Pre Admit [facility] [address] [place] [address] [phone] *Note: Encounters from your own facility or health system may be excluded. Allergies, Adverse Reactions, Alerts Allergen Type Severity Identification Date codeine drug allergy 2 [id number] Medications Name Date Quantity Days Supplied [employer] [facility] Number
--- OUTSIDE RECORDS SUMMARY | 2025-11-24 13:39 | XMS_ITS | Encounter Summary ---
Author Organization [facility] Healthcare Address [address] [place] [address] Care Team Providers Care Configuration Management Consultant Name Role Phone Elsa Isaac NP Primary Care Provider [phone] Jason Steward MD Primary Care Provider [phone] Jason Steward MD Primary Care Provider [phone] Encounter Details Date Type Department Care Team (Late st Contact Info) Description 01/01/2025 Orders Only [facility] Health Information Management [address] [place] [id number] Scanning, Provider Social History Tobacco Use Types Packs/Day Years Used Date Smoking Tobacco: Never Assessed Sex and Gender Information Value Date Recorded Sex Assigned at Not on file 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
--- OUTSIDE RECORDS SUMMARY | 2025-11-24 13:39 | XMS_ITS | Data Portability ---
Author Organization [place] [facility] [email or web address], Main Office Address [address] [place] [address] Care Team Providers Care Physician Office Rep Name Role Phone JASON STEWARD Primary Care Provider Assessment Encounter Date Assessment Date Assessment LastModified by Organization Details LastModified Time 01/01/2025 01/01/2025 D/w pt about his findings and further plan of care. Advised to call ambulance; but pt declined. Pt wants to drive by himself to [facility] ED. Risks explained. I called [facility] ED and d/w ED MD about pt's symptoms and concerns. Ok to send pt to ED. F/u as per ED MD's recommendatio ns. [email or web address] Not available 01/01/2025 09:37:52 Plan of Treatment Reminders Order Date Submit Date Provider Last Modified By Organization Details Last Modified Time Details Appointments Any 30 026 08:00AM Jason Steward MD Not available Not available [...] 1 view No observ ation record ed. [email or web address] [place] [id number], [place], [address], 01/01/2025 11:29:47 01/01/20 25 01/01/2025 CT, angio gram, chest , w/ contr ast No observ ation record ed. [email or web address] [facility] [address], [place], [address], 01/02/2025 09:09:51 01/03/20 25 01/02/2025 trans -thor acic echoc ardio gram (TTE) (PROC ) No observ ation record ed. [email or web address] [facility] [address], [place], [address], 01/08/2025 14:53:14 01/05/20 25 01/05/2025 XR, chest No observ ation record ed. [email or web address], [place], [address], 01/08/2025 14:53:35 Result Notes None recorded. Problems Name Problem SNOMED Code Status Onset Date Resolution Date Notes Provider Name and Address Organization Details Recorded Time Tobacco user 167285729 Active Not Available [facility] 3 09:18:17 Pain of joint of ankle Active Not Available [facility] 3 09:18:17 Knee pain Active Not Available [facility] 3 09:18:17 Bronchitis 00685048 Active Not Available [facility] 3 09:18:17 Sinusitis 32301310 Active Not Available [facility] 3 09:18:17 Anxiety 54436591 Active Not Available [facility] 3 09:18:17 Cough 41590281 Active Not Available [facility] 3 09:18:18 Upper respiratory infection 43257773 Active Not Available [facility] 3 09:18:18 Dyspnea on exertion 49896130 Active Not Available [facility] 3 09:18:18 Influenza 1561932 Active Not Available [facility] 3 09:18:18 Stress 28140703 Active Not Available [facility] 3 09:18:18 Posterior rhinorrhea 03798028 Active Not Available [facility] 3 09:18:18 Smoker 21615516 Active Not Available [facility] 3 09:18:18 Gout 65405322 Active Not Available [facility] 3 09:18:18 Tachypnea 240917229 Active 2024 Jason Steward MD [address], [address] , [facility] [employer] [facility] 5 09:33:23 Hypoxia 336884553 Active 2024 Jason Steward MD [address], [address] , [facility] [employer] [facility] 5 09:33:37 Acute exacerbation of chronic obstructive pulmonary disease 167407518 Active 2024 Jason Steward MD [address] [facility] [address], [address] , [facility] [employer] [facility] 5 09:33:49 Fatigue 65985998 Active 2024 Jason Steward MD [address], [address] , [facility] [employer] [facility] 5 09:33:57 Cigarette smoker 46471177 Active 2024 Jason Steward MD [address], [address] , [facility] [employer] [facility] 5 09:34:03 Overweight 814212931 Active 2024 Jason Steward MD [address], [address] , [facility] [employer] [facility] 5 09:36:14 Problem Notes None recorded. Medical Equipment None Reported. Allergies No known drug allergies Medications Name Sig Start Date Stop Date Status Note LastModified by Organization Details LastModified Time amoxicillin 500 mg capsule TK 1 C PO QID FOR 7 DAYS active Not Available Not Available No t Available furosemide 40 mg tablet TAKE 1 TABLET BY MOUTH DAILY active Not Available Not Available No t Available nicotine 14 mg/24 hr daily transdermal patch Apply 1 patch every day by transderm al route as directed for 30 days. active Not Available Not Available No t Available ipratropium 0.5 mg-albutero l 3 mg (2.5 mg base)/3 mL nebulizatio n soln 03/03 completed [facility]#: 0487- 0201- 03 Not Available Not Available Not Available azithromyci n 250 mg tablet TK 2 TS PO AT ONCE TODAY THEN TK 1 T PO ONCE D FOR 4 DAYS 02/25 completed Not Available Not Available Not Available benzonatate 200 mg capsule TAKE 1 CAPSULE BY MOUTH THREE TIMES DAILY NEEDED FOR COUGH active Not Available Not Available No t Available Celestone Soluspan 6 mg/mL suspension for injection active ndc#: 0085- 9566- 05 Not Available Not Available [...] tablet TAKE 2 TABLETS BY MOUTH DAILY AT 8AM active Not Available Not Available No t Available spironolact one 25 mg tablet TAKE 1/2 TABLET BY MOUTH DAILY active Not Available Not Available No t Available amoxicillin 875 mg tablet TAKE 1 TABLET BY MOUTH EVERY 12 HOURS FOR 10 DAYS 01/01 completed Not Available Not Available Not Available linezolid 600 mg tablet TAKE 1 TABLET BY MOUTH EVERY 12 HOURS 11/11 completed Not Available Not Available Not Available Xanax 0.25 mg tablet Take 1 tablet 3 times a day by oral route as directed for 30 days. 05/19 completed Not Available Not Available Not Available doxycycline monohydrate 100 mg capsule TAKE 1 CAPSULE BY MOUTH TWICE DAILY active Not Available Not Available No t Available oseltamivir 75 mg capsule Take 1 capsule every day by oral route as directed for 10 days. 12/28 completed Not Available Not Available Not Available prednisone 50 mg tablet TAKE 1 TABLET BY MOUTH DAILY active Not Available Not Available No t Available ceftriaxone 500 mg solution for injection active nd#: 0143- 9858- 01 Not Available Not Available Not Available metoprolol succinate ER 25 mg tablet,exte nded release 24 hr TAKE 1 TABLET BY MOUTH EVERY MORNING active Not Available Not Available No t Available ibuprofen 600 mg tablet Take 1 tablet 3 times a day by oral route for 30 days. 01/01 completed Not Available Not Available Not Available levofloxaci n 750 mg tablet TK 1 T PO D 03/03 completed Not Available Not Available Not Available albuterol sulfate HFA 90 mcg/actuati on aerosol inhaler INHALE 2 PUFFS BY MOUTH FOUR TIMES DAILY NEEDED FOR SHORTNESS OF BREATH OR WHEEZING active Not Available Not Available No t [...] completed Not Available Not Available Not Available Advair HFA 45 mcg-21 mcg/actuati on aerosol inhaler INHALE 2 PUFFS BY MOUTH EVERY 12 HOURS WITH SPACER active Not Available Not Available No t Available Chantix Continuing Month Box 1 mg [...] completed Not Available Not Available Not Available Combivent Respimat 20 mcg-100 mcg/actuati on solution for inhalation INHALE 1 PUFF BY MOUTH FOUR TIMES DAILY active Not Available Not Available No t Available Vicodin ES 7.5 mg-300 mg tablet TK 1 T PO Q 4 H PRN P. active Not Available Not Available No t Available Jardiance 10 mg tablet TAKE 1 TABLET BY MOUTH DAILY active Not Available Not Available No t Available sacubitril 24 mg-valsarta n 26 mg tablet TAKE 1 TABLET BY MOUTH EVERY 12 HOURS active Not Available Not Available No t Available Compact Space Chamber USE WITH INHALER DIRECTED 01/01 completed Not Available Not Available Not Available Vitals Date Recorded Body height Body mass index (BMI) Body weight Body temperature Oxygen saturation Heart rate Systolic And Diastolic Provider Name and Address Organization Details Last Updated DateTime 5 190.5 cm 28.3 kg/m2 432460. 98 g 97.4 [degF] 85 % 116 /min 150/110 mm[Hg] Priti Perez RN [place] [facility] [employer] [facility] 5 09:13:08 Date Recorded Body mass index (BMI) Body height Oxygen saturation Heart rate Body temperature Body weight Systolic And Diastolic Provider Name and Address Organization Details Last Updated DateTime 2 27.5 kg/m2 190.5 cm 95 % 95 /min 98.1 [degF] 35162.3 2 g 128/84 mm[Hg] Not Available [facility] 3 09:13:38 Social History Question Answer Notes LastModified by Organizat ion Details LastModified Time Tobacco Smoking Status Current Every Day Smoker Not Available [facility] 01/26/2023 09:12:54 Do You Have An Advance Directive? No [id number] Information not available 01/26/2023 In The 14 Days Before Symptom Onset, Have You Had Close Contact With A Laboratory-confirm ed COVID-19 While That Case Was Ill? No [id number] Information not available 01/26/2023 In The 14 Days Before Symptom Onset, Have You Had Close Contact With A Person Who Is Under Investigation For COVID-19 While That Person Was Ill? No [id number] Information not available 01/26/2023 What Type Of Diet Are You Following? REGULAR [id number] Information not available 01/26/2023 What Is The Highest Grade Or Level Of School You Have Completed Or The Highest Degree You Have Received? HA61810-4 [id number] Information not available 01/26/2023 Do You Have A Medical Power Of Mobile Security Specialist? No [id number] Information not available 01/26/2023 What Is Your Relationship Status? Single [id number] Information not available 01/26/2023 How Much Tobacco Do You Smoke? 0.5 PPD [id number] Information not available 01/26/2023 Have You Recently Traveled Abroad? No [id number] Information not available 01/26/2023 Are You Currently In School? No [id number] Information not available 01/26/2023 Sex: Unknown Functional Status Question Answer Note LastModified by Organizat ion Details LastModified Time What is your level of alcohol consumption? 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 Moderate [id number] 26 Information not available 01/26/2023 Mental Status None recorded. Family History Relationship Description Onset Age of this Age Resolved Age Notes LastModified by Organization Details LastModified Time Father No current problems or disability [id number] Not available 01/26/2023 09:13:20 Mother No current problems or disability [id number] Not available 01/26/2023 09:13:20 Medical History No medical history recorded. Past Encounters Encounter ID Performer Location Encounter Start Date Encounter Closed Date Diagnosis/Indication Diagnosis SNOMED-CT Code Diagnosis ICD10 Code Diagnosis IMO Codes Diagnosis Note [id number] [facility] [place] [address] [place] [address] 11/11/2022 00:00:00 11/11/2022 16:45:58 [id number] [facility] [place] [address] [place] [address] 01/01/2025 09:01:18 01/01/2025 09:17:09 Dyspnea on exertion 96837438 R06.09 Tachypnea 111255684 R06. 82 Hypoxia 864559598 R09.02 Acute exac erbation of chronic obstructive pulmonary disease 627643414 J44.1 Fatigue 41550851 R53.83 Cigarette smoker 7860944 7 F17.210 Overweight 190884599 E66 .3 Health Concerns Section Related Observation LastModified by Organization Detai ls LastModified Time None Recorded Concern Status LastModified by Organization Details LastModified Time None Recorded Advance Directives Directive N: Payers Insurance Date Sequence Insurance Name Policy Number Policy Nunes Covered Member ID Nunes Member ID Guarantor Name 01/01/2025 1 [employer] - [facility] ([facility] [id number] Omar Hines [id number] Omar Hines 11/11/2025 1 [facility] [id number] Omar Hines [id number] Omar Hines Notes Date Note Type Note [...] Last visit in 11/18. Jason Steward MD [address] [place] [address], [facility] [address], [place], [address], [place] [facility] [employer] 01/01/2025 09:38:00
--- OUTSIDE RECORDS SUMMARY | 2025-11-24 13:39 | XMS_ITS | Encounter Summary ---
Author Organization [facility] Healthcare Address [address] [place] [address] Care Team Providers Care Public Health Registrar Name Role Phone Jason Steward MD Primary Care Provider [phone] Encounter Details Date Type Department Care Team (Latest Contact Info) Description 10/29/2025 Results Follow-Up [facility] Medical Group Cardiology at [address] [place] [phone] Lynda Godinez, ANNETTE Transthoracic Echo (TTE) Complete W Doppler/CF Social History Tobacco Use Types Packs/Day Years Used Date Smoking Tobacco: Former Cigarettes Sex and Gender Information Value Date Recorded Sex Assigned at Not on file 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
--- OUTSIDE RECORDS SUMMARY | 2025-11-24 13:39 | XMS_ITS | Encounter Summary ---
Author Organization [facility] Healthcare Address [address] [place] [address] Care Team Providers Care Hi Lift Operator Name Role Phone Elsa Isaac NP Primary Care Provider [phone] Jason Steward MD Primary Care Provider [phone] Jason Steward MD Primary Care Provider [phone] Encounter Details Date Type Department Care Team (Late st Contact Info) Description 01/05/2025 Orders Only [facility] Information Management [address] [place] [address] Scanning, Provider Social History Tobacco Use Types Packs/Day Years Used Date Smoking Tobacco: Never Assessed Sex and Gender Information Value Date Recorded Sex Assigned at Not on file 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
[2025-11-24 14:04] VITALS: BP 130/80; PULSE 113; RESP 18; TEMP 36.6; O2SAT 95
--- NOTE | 2025-11-24 14:43 | ED_ITS ---
HPI - URI/Sore Throat General Chief Complaint: Upper Respiratory Infection Stated Complaint: Congestion History of Present Illness HPI Narrative: Chief Complaint: Respiratory distress associated with COPD and influenza. Patient Summary: The patient is experiencing increased respiratory distress due to COPD exacerbation and a recent influenza A infection. History of Present Illness: The patient has a history of COPD and was recently hospitalized last month for pneumonia. Since being discharged, the patient has been managing without supplemental oxygen, maintaining oxygen saturation levels between 94-97%. However, today the patient reports increased congestion and difficulty emanuel thing, with oxygen saturation dropping to 88% without supplemental oxygen. The patient reports their daughter was recently diagnosed with influenza A, and the patient believes they have contracted the same. The patient is concerned about preventing another pneumonia episode and reports increased sputum and nasal congestion. Social History: - No specific social history details were provided. Family History: - The patient's daughter recently had influenza A. Review of Systems: - Respiratory: Increased shortness of breath, increased sputum, congestion, and decreased oxygen saturation levels. - General: Reports not having any other symptoms outside the respiratory issues mentioned. Vitals and Physical Exam findings: Not available. Assessment: 1. COPD exacerbation 2. Influenza A infection 3. Potential risk for pneumonia recurrence Plan: - Prescribe Tamiflu for influenza A. - Prescribe a course of antibiotics (specific type to be determined after chart review). - Prescribe steroids to manage COPD symptoms. - Monitor oxygen levels closely at home and use supplemental oxygen as needed to maintain levels above 90%. - Advise the patient to seek emergency care if symptoms worsen or oxygen levels cannot be maintained. - Follow-up with a work order sorting clerk as scheduled in December. Related Data Home Medications ?Medication ?Instructions ?Recorded ?Confirmed ?Last Taken ?Type ipratropium 20 mcg-albuterol 100 1 puff inhalation QID PRN 09/26/25 11/13/25 Unknown History mcg/actuation mist for inhalation shortness of breath or wheezing (Combivent Respimat) Allergies Allergy/AdvReac Type Severity Reaction Status Date / Time codeine AdvReac Intermediate light Verified 11/24/25 13:39 headed, dizzy, sweating Review of Systems Review of Systems: All systems reviewed & are unremarkable except as noted in HPI and below Eyes: Eyes: Reports as per HPI ENT: Reports as per HPI Cardiovascular: Cardiovascular: Reports as per HPI Respiratory: Respiratory: Reports as per HPI Genitourinary: Genitourinary: Reports as per HPI Musculoskeletal: Musculoskeletal: Reports as per HPI Integumentary/Breasts: Skin/Breast: Reports as per HPI Neurologic: Reports as per HPI Psychiatric: Psychiatric: Reports as per HPI Endocrine: Endocrine: Reports as per HPI Hematologic/Lymphatic: Hematologic/Lymphatic: Reports as per HPI Allergic/Immunologic: Allergic/Immunologic: Reports as per HPI [facility] Past Medical History Medical History (Updated 11/24/25 @ 14:44 by Natasha Rosas APRN) Asthma exacerbation in COPD Cardiomyopathy COPD (chronic obstructive pulmonary disease) Surgical History Surgical History No pertinent past surgical history Family History Family History Mother Cervical cancer Father Heart failure Social History Social History Smoking packs per day: 1 Smoking cigarettes per day: 20.0 Years smoked: 30 Smoking pack-years: 30.00 Smoking status: Former smoker Tobacco type: cigarettes Smokeless tobacco user: chewing tobacco Smoking end date: 09/26/25 Alcohol intake: never Alcohol use details: nothing for 2 years Substance use: never Substance use type: does not use Lack of Transportation: No Lack of Food: Never True Current Housing: I Have Housing Concerned About Future Housing: No Difficulty Paying Gas/Electric Bills: No Difficulty Paying for Meds: No Currently Unemployed: No Education: High School Diploma/GED Difficulty w/ Childcare or Family Care: No Living arrangements: with family Additional living arrangements comments: minor daughter Spiritual care concerns: No Exam Const: General: cooperative, healthy appearing, comfortable, no acute distress and well developed Orientation/consciousness: patient oriented x3 HENMT: Head: normal to inspection Eyes: General: appearance normal, both eyes and all related structures Resp: Effort & Inspection: normal respiratory effort and able to speak in complete sentences Auscultation: clear to auscultation bilaterally and diminished lung sounds Cardio: Rate: regular rate Rhythm: regular rhythm Heart sounds: S1 normal heart sound present and S2 normal heart sound present Skin: General skin exam: normal color Neuro: General: patient oriented x3 Cognition (Neuro): normal cognition Speech: normal speech Psych: Mental Status: mental status grossly normal Course Course Level of Care: Express Care Visit Vital Signs Vital signs: Vital Signs Temperature 97.8 F 11/24/25 14:04 Pulse Rate 113 H 11/24/25 14:04 Respiratory Rate 18 11/24/25 14:04 Blood Pressure 130/80 11/24/25 14:04 Pulse Oximetry 95 11/24/25 14:04 Oxygen Delivery Nasal Cannula 11/24/25 14:04 Oxygen Flow Rate 3 11/24/25 14:04 Temperature 97.8 F 11/24/25 14:04 Pulse Rate 113 H 11/24/25 14:04 Respiratory Rate 18 11/24/25 14:04 Blood Pressure 130/80 11/24/25 14:04 Pulse Oximetry 95 11/24/25 14:04 Oxygen Delivery Nasal Cannula 11/24/25 14:04 Oxygen Flow Rate 3 11/24/25 14:04 MDM MDM Narrative Medical decision making narrative: 55-year-old male HPI is noted. Differentials as below. COVID negative influenza A positive. patient with history of COPD just discharged from a hospital within the last 2 months for pneumonia. Currently following with pulmonology. Will treat with Tamiflu for influenza and levofloxacin and prednisone for COPD exacerbation . Chest x-ray deferred at this time as levaquin will treat for pneumonia also Assessment: 1. COPD exacerbation 2. Influenza A infection 3. Potential risk for pneumonia recurrence Plan: - Prescribe Tamiflu for influenza A. - Prescribe a course of antibiotics (specific type to be determined after chart review). - Prescribe steroids to manage COPD symptoms. - Monitor oxygen levels closely at home and use supplemental oxygen as needed to maintain levels above 90%. Patient was sent home with supplemental oxygen after his admission in September for pneumonia. - Advise the patient to seek emergency care if symptoms worsen or oxygen levels cannot be maintained. - Follow-up with a work order sorting clerk as scheduled in December. Differential Diagnosis Differential Diagnosis: differentials include but not limited to COPD exacerbation, pneumonia, influenza, COVID, URI. Medical Records I have reviewed the following patient records and this information was taken into consideration when formulating the assessment and plan.: previous labs, previous ER visits, previous hospitalizations and previous clinic visits Lab Data MDM Lab Attestation statement: I personally reviewed the patient's lab results. Labs: Lab Results 12/28/25 Range/Units 16:59 POC Influenza A Ag Positive (Negative) POC Influenza B Ag Negative (Negative) POC SARS CoV-2 Ag Negative (Negative) Discharge Plan Discharge Clinical Impression: Influenza A, COPD exacerbation Patient Disposition: Home Condition: Guarded Prognosis Instructions: Antibiotic Form Additional Instructions: you tested positive for influenza a today. With the increase in shortness of breath and cough with sputum production am also going to treat you for COPD exacerbation. I am sending you home with levofloxacin seen 500 mg once daily for 5 days and Tamiflu 1 capsule twice a day for 5 days. Since you have oxygen at home in your oxygen level is 88 on room air at home but your able to get up to 94 on 3 L I feel safe and comfortable sending her home but if any changes go directly to the emergency department. Any increased shortness of breath inability keep her oxygen level above 90 straight to the emergency department. Make sure to follow-up with her primary care provider as soon as possible. Patient Language: Citizen Of [place] Prescriptions: New levofloxacin 500 mg tablet 500 mg PO DAILY Qty: 7 0RF prednisone 20 mg tablet 40 mg PO DAILY Qty: 10 0RF oseltamivir [Tamiflu] 75 mg capsule 75 mg PO Q12H 5 Days Qty: 10 0RF No Action furosemide [Lasix] 40 mg tablet 40 mg PO DAILY PRN (Reason: weight gain) 30 Days Qty: 30 1RF [id number]-lstxekpf-ftvkhrjzoo 160-9-4.8 mcg/actuation HFA aerosol inhaler 2 inh inhalation BID Qty: 10.7 6RF Jardiance 10 mg tablet 10 mg PO DAILY Qty: 90 3RF metoprolol succinate [Toprol XL] 25 mg Tablet Extended Release 24 Hr 25 mg PO QAM 90 Days Qty: 90 3RF sacubitril-valsartan [Entresto] 24-26 mg Tablet 1 tablet PO Q12HR 90 Days Qty: 180 3RF Combivent Respimat 20-100 mcg/actuation mist 1 puff inhalation QID PRN (Reason: shortness of breath or wheezing) Follow-up/Referrals: Bin,MD Jason [Primary Care Provider, Unknown] Time of Disposition: 14:54 Quality NIHSS Nursing Documentation ED NIHSS nursing documentation: reviewed/agree
[2025-11-24 17:03] LABS: EDCOVIDSCREEN Negative (Negative); EDINFLUASCREEN Positive (Negative); EDINFLUBSCREEN Negative (Negative)
== END 2025-11-24 15:00 | disposition home or self-care (01) ==
PROVIDERS: Emergency Provider Nurse Practitioner Family; PCP Family Medicine
DX: J10.1 Influenza due to other identified influenza virus with other respiratory manifestations (principal); J44.1 Chronic obstructive pulmonary disease with (acute) exacerbation; Z20.822 Contact with and (suspected) exposure to COVID-19; F17.220 Nicotine dependence, chewing tobacco, uncomplicated; I42.9 Cardiomyopathy, unspecified
CPT/HCPCS: 87426; 87804; 99213; G0463